=== PATIENT | male | born 1955 | race Caucasian/White ===

== ENCOUNTER 2017-07-17 18:26 | Emergency (ER) | payer MEDICARE, OTHER ==
[~2017-07-17] VITALS: Ht 182.9 cm; Wt 159.0 kg
[~2017-07-17 18:26] MED LIST: ACET500C5 PO; CIPR500T4 PO; DIGO125T PO; HYDR-762 PO; IBUP-1542 PO; LORA1TAB PO; LYRI100 PO; METO25TA4 PO; ONDA4TAB35 PO; PRAV10TA43 PO; TAMS-14 PO; TEMA30CA PO; TRAM50TA2 PO; UDROBDM PO
[2017-07-17 20:19] VITALS: Ht 182.9 cm; Wt 159.0 kg
[2017-07-17 22:15] VITALS: TEMP 98.9
[2017-07-17] MEDS ORDERED: HYDROmorphONE 1 MG/ML SYG IV STA (22:44)
[2017-07-17] MEDS ORDERED: ONDANSETRON 4 MG INJ IV STA (22:44)
[2017-07-17] MEDS ORDERED: SOD CHLORIDE 0.9% 1,000 ML IV STA (22:44)
--- NOTE | 2017-07-18 00:02 | ERD ---
ER Documentation Chief Complaint Date/Time DATE: 07/18/17 TIME: 00:00 Chief Complaint BIBA x LUQ ab pain today, hx kidney stones HPI This is 62-year-old male who says he was here Saturday and diagnosed with a right 7 x 6 mm kidney stone in the right ureter. He says that he is supposed to see the urologist on the but they were unable to see him. He states that his got his appointment moved back later. He says he is having some pain consistent with a sharp right flank pain with radiation to the right lower quadrant with some nausea vomiting yesterday. He is not having any fever no hematuria. Says the pain is just like his kidney stone pain has had in the past. Currently the pain is moderate. ROS All systems reviewed and are negative except as per history of present illness. Medications Home Meds Active Scripts Tramadol HCl (Tramadol HCl) 50 Mg Tablet, 50 MG PO Q6 Y for PAIN, #20 TAB Prov:STEPHANIE BACK 07/13/17 Ciprofloxacin Hcl* (Ciprofloxacin Hcl*) 500 Mg Tablet, 500 MG PO BID for 7 Days , TAB Prov:STEPHANIE BACK 07/13/17 Lorazepam* (Lorazepam*) 1 Mg Tablet, 1 MG PO DAILY for 5 Days, #5 TAB 0 Refills Prov:ELLIS SALAS PA-C 04/29/16 Guaifenesin-Dextromethorphan* (Robitussin* DM) 100MG/10MG/5ML Syrup, 5 ML PO Q6H Y for COUGH for 6 Days, #120 ML Prov:ELLIS SALAS PA-C 04/29/16 Acetaminophen* (Tylophen*) 500 Mg Capsule, 1 CAP PO Q6H Y for PAIN AND OR ELEVATED TEMP for 7 Days, #30 CAP 0 Refills Prov:ELLIS SALAS PA-C 04/29/16 Ibuprofen* (Motrin*) 600 Mg Tab, 600 MG PO Q8 for 10 Days, #30 TAB 0 Refills Prov:ELLIS SALAS PA-C 04/29/16 Ciprofloxacin Hcl* (Ciprofloxacin Hcl*) 500 Mg Tablet, 500 MG PO BID for 7 Days , TAB Prov:KATHERIN WINSLOW MD 08/23/15 Ondansetron Hcl* (Zofran* ODT) 4 mg -ODT Tab.disper, 4 MG PO Q6 Y for NAUSEA AND /OR VOMITING, #30 TAB Prov:KATHERIN WINSLOW MD 08/23/15 Hydrocodone Bit-Acetaminophen* ([place]olla*) 10-325 Mg Tablet, 1 TAB PO Q6 Y for PAIN , #14 TAB Prov:KATHERIN WINSLOW MD 08/23/15 Reported Medications Pregabalin* (Lyrica*) 100 Mg Capsule, 100 MG PO DAILY, CAP 08/23/15 Tamsulosin Hcl* (Flomax*) 0.4 Mg Cap.er.24h, 0.4 MG PO HS, CAP 08/23/15 Temazepam* (Temazepam*) 30 Mg Capsule, 30 MG PO HS Y for INSOMNIA, CAP 08/23/15 Pravastatin Sodium* (Pravastatin Sodium*) 10 Mg Tablet, 10 MG PO HS, TAB 08/23/15 Metoprolol Tartrate* (Lopressor*) 25 Mg Tablet, 25 MG PO BID, TAB 08/23/15 Digoxin* (Digoxin*) 0.125 Mg Tab, 0.125 MG PO DAILY, TAB 06/03/15 Allergies Allergies: Coded Allergies: No Known Drug Allergies (Verified Allergy, Unknown, 04/29/16) PMhx/Soc History of Surgery: Yes (right lower leg, left ankle, colostomy) Anesthesia Reaction: No Hx Neurological Disorder: No Hx Respiratory Disorders: No Hx Cardiac Disorders: Yes (afib, htn) Hx Psychiatric Problems: No Hx Miscellaneous Medical Probl: No Hx Alcohol Use: No Hx Substance Use: No Hx Tobacco Use: No Smoking Status: Never smoker FmHx Family History: No coronary disease Physical Exam Vitals Vital Signs Date Time Temp Pulse Resp B/P Pulse Ox O2 Delivery O2 Flow Rate FiO2 07/18/17 01:48 84 16 156/66 91 Room Air 07/17/17 22:15 98.9 79 20 148/89 93 Room Air 07/17/17 20:19 99.3 75 20 141/82 92 Physical Exam Const: Well-developed, well-nourished Head: Atraumatic, normocephalic Eyes: Normal Conjunctiva, PERRLA, EOMI, normal sclera, no nystagmus ENT: Normal External Ears, Nose and Mouth, moist mucus membranes. Neck: Full range of motion. No meningismus, no lymphadenopathy. Resp: Clear to auscultation bilaterally, no wheezing, rhonchi, rales Cardio: Regular rate and rhythm, no murmurs, S1 S2 present Abd: Soft, non tender x 4, non distended. Normal bowel sounds, no guarding or rebound, no pulsitile abdominal masses or bruits Skin: No petechiae or rashes, no ecchymosis , no maculopapular rash Back: Right flank tenderness Ext: No cyanosis, or edema, FROM x 4, normal inspection, neurovascularly intact x 4 Neur: Awake and alert, STR 5/5 x 4, sensation intact x 4, no focal findings, cerebellum intact Psych: Normal Mood and Affect Result Diagram: 07/17/17221307/17/172213 Results 24 hrs Laboratory Tests Test 07/17/17 22:14 07/17/17 23:29 White Blood Count 11.910^3/ul Red Blood Count 4.7810^6/ul Hemoglobin 14.7g/dl Hematocrit 44.6% Mean Corpuscular Volume 93.3fl Mean Corpuscular Hemoglobin 30.8pg Mean Corpuscular Hemoglobin Concent 33.0g/dl Red Cell Distribution Width 14.6% Platelet Count 93543^3/UL Mean Platelet Volume 11.0fl Neutrophils % 76.7% Lymphocytes % 10.7% Monocytes % 11.0% Eosinophils % 0.8% Basophils % 0.5% Nucleated Red Blood Cells % 0.0/100WBC Neutrophils # (Manual) 9.110^3/ul Lymphocytes # 1.310^3/ul Monocytes # 1.310^3/ul Eosinophils # 0.110^3/ul Basophils # 0.110^3/ul Nucleated Red Blood Cells # 0.010^3/ul Sodium Level 142mmol/L Potassium Level 4.9mmol/L Chloride Level 103mmol/L Carbon Dioxide Level 27mmol/L Anion Gap 17 Blood Urea Nitrogen 19mg/dl Creatinine 1.80mg/dl Glucose Level 112mg/dl Calcium Level 9.8mg/dl Urine Color YELLOW Urine Clarity CLEAR Urine pH 5.0 Urine Specific [place] 1.024 Urine Ketones NEGATIVEmg/dL Urine Nitrite NEGATIVEmg/dL Urine Bilirubin NEGATIVEmg/dL Urine Urobilinogen NEGATIVEmg/dL Urine Leukocyte Esterase TRACELeu/ul Urine Microscopic RBC 1/HPF Urine Microscopic WBC 7/HPF Urine Hemoglobin NEGATIVEmg/dL Urine Glucose NEGATIVEmg/dL Urine Total Protein 1+mg/dl Current Medications Medications (Trade) Dose Ordered Sig/Stevo Route PRN Reason Start Time Stop Time Status Last Admin Dose Admin Sodium Chloride (NS) 1,000 ml @ 1,000 mls/hr Q1H STAT IV 07/17/17 22:44 07/17/17 23:43 DC 07/17/17 22:50 Hydromorphone HCl (Dilaudid) 1 mg ONCE STAT IV 07/17/17 22:44 07/17/17 22:45 DC 07/17/17 22:50 Ondansetron HCl (Zofran Inj) 4 mg ONCE STAT IV 07/17/17 22:44 07/17/17 22:45 DC 07/17/17 22:50 Hydromorphone HCl (Dilaudid) 1 mg ONCE STAT IV 07/18/17 00:46 07/18/17 00:47 DC 07/18/17 01:05 Ondansetron HCl (Zofran Inj) 4 mg ONCE STAT IV 07/18/17 00:46 07/18/17 00:47 DC 07/18/17 01:05 Procedures/MDM PROCEDURE: CT abdomen and pelvis without intravenous contrast. CLINICAL INDICATION: Pain. TECHNIQUE: CT of the abdomen/pelvis was performed utilizing axial images with reconstructions in sagittal and coronal planes. The administered radiation dose is CTDI 24 mGy, DLP 3341 mGy-cm. COMPARISON: No pertinent prior examinations were submitted for comparison. FINDINGS: Visualized Chest: There is mild atelectasis at the lung bases. There is moderate cardiomegaly. Some coronary artery calcifications are noted. Abdomen: The spleen, pancreas, gallbladder,and adrenal glands are unremarkable. The liver is diffusely decreased in attenuation, compatible with hepatic steatosis. There is mild right hydronephrosis and hydroureter secondary to a 6 mm calculus in the right distal ureter, several centimeters from the ureterovesical junction. The left kidney is without hydronephrosis. No other definite urinary calculi are seen. Prior partial colonic resection is noted with a left lower quadrant colostomy. Multiple bowel anastomoses are seen. There is no evidence of bowel obstruction. The appendix is normal. No intra-abdominal free air is seen. There is no evidence of intra-abdominal adenopathy or free fluid. Pelvis: There is no evidence of pelvic adenopathy or free fluid. The prostate and bladder are unremarkable. Small, left greater than right fat containing inguinal hernias are noted. Osseous structures: Unremarkable. IMPRESSION: Mild right-sided obstructive uropathy secondary to a 6 mm calculus in the right distal ureter. Hepatic steatosis. Bilateral fat containing inguinal hernias. Status post bowel surgeries without evidence of bowel obstruction. RPTAT: HIKT .Pankaj Quiles MD, MD Date Time Electronically viewed and signed by .Pankaj Quiles MD, on 07/18/2017 01:12 .T/ CC: BRENDA NUNEZ DO Patient's got some mild hydronephrosis with a 6 mm stone consistent with his CT scan 3 days ago. He will need to follow-up with his urologist to have it removed. Will cover him with some Cipro and pain medication. The patient does seem overly ambitious about getting Dilaudid throughout thCreatinine is 1.8 from 1.0.984 days ago. Spoke with the urologist on-call Dr. white she said she will see him in the office if she can. Does not need to be admitted for this reason. Told him to not take NSAIDs and drink more water Departure Diagnosis: Primary Impression: Ureterolithiasis Condition: Stable BRENDA NUNEZ DO Jul 18, 2017 00:02
[2017-07-18 00:20] LABS: ADD UMIC YES; UR ASCORBIC ACID NEGATIVE (NEGATIVE); UR BILIRUBIN (Dip) NEGATIVE (NEGATIVE); UR BLOOD (Dip) NEGATIVE (NEGATIVE); UR CLARITY CLEAR (CLEAR); UR COLOR YELLOW (YELLOW); UR GLUCOSE (Dip) NEGATIVE (NEGATIVE); UR KETONES (Dip) NEGATIVE (NEGATIVE); UR LEUKOCYTE ESTERASE (Dip) TRACE Leu/ul (NEGATIVE); UR NITRITE (Dip) NEGATIVE (NEGATIVE); UR RBC 1 /HPF (0-5); UR SPECIFIC GRAVITY (Dip) 1.024 (1.003-1.030); UR TOTAL PROTEIN (Dip) 1+ mg/dl (NEGATIVE); UR UROBILINOGEN (Dip) NEGATIVE (NEGATIVE)
[2017-07-18 00:23] LABS: BASOPHIL # 0.1 10^3/ul (0.0-0.1); BASOPHILS % 0.5 % (0.0-2.0); EOSINOPHILS # 0.1 10^3/ul (0.0-0.5); EOSINOPHILS % 0.8 % (0.0-7.0); HEMATOCRIT 44.6 % (42.0-52.0); HEMOGLOBIN 14.7 g/dl (14.0-18.0); LYMPHOCYTES # 1.3 10^3/ul (0.8-2.9); LYMPHOCYTES % 10.7 % (15.0-51.0); MEAN CORPUSCULAR HEMOGLOBIN 30.8 pg (29.0-33.0); MEAN CORPUSCULAR VOLUME 93.3 fl (82.0-101.0); MONOCYTE # 1.3 10^3/ul (0.3-0.9); NEUTROPHILS % 76.7 % (39.0-77.0); PLATELET COUNT 288 10^3/UL (140-415); RED BLOOD COUNT 4.78 10^6/ul (4.70-6.10); RED CELL DISTRIBUTION WIDTH 14.6 % (11.5-14.5); WHITE BLOOD COUNT 11.9 10^3/ul (4.8-10.8)
[2017-07-18 00:28] LABS: CALCIUM 9.8 mg/dl (8.4-10.2); CREATININE 1.8 mg/dl (0.61-1.24); POTASSIUM 4.9 mmol/L (3.5-5.1)
[2017-07-18] MEDS ORDERED: ONDANSETRON 4 MG INJ IV STA (00:46)
[2017-07-18] MEDS ORDERED: HYDROmorphONE 1 MG/ML SYG IV STA (00:46)
--- NOTE | 2017-07-18 01:12 | RADRPT ---
PROCEDURE: CT abdomen and pelvis without intravenous contrast. CLINICAL INDICATION: Pain. TECHNIQUE: CT of the abdomen/pelvis was performed utilizing axial images with reconstructions in s agittal and coronal planes. The administered radiation dose is CTDI 24 mGy, DLP 3341 mGy-cm. COMPARISON: No pertinent prior examinations were submitted for comparison. FINDINGS: Visualized Chest: There is mild atelectasis at the lung bases. There is moderate cardiomegaly. Regulo e coronary artery calcifications are noted. Abdomen: The spleen, pancreas, gallbladder,and adrenal glands are unremarkable. The liver is diffusely dec reased in attenuation, compatible with hepatic steatosis. There is mild right hydronephrosis and hydroureter secondary to a 6 mm calculus in the right distal ureter, several centimeters from the ureterovesical junction. The left kidney is without hydronephr osis. No other definite urinary calculi are seen. Prior partial colonic resection is noted with a left lower quadrant colostomy. Multiple bowel anast omoses are seen. There is no evidence of bowel obstruction. The appendix is normal. No intra-abdom inal free air is seen. There is no evidence of intra-abdominal adenopathy or free fluid. Pelvis: There is no evidence of pelvic adenopathy or free fluid. The prostate and bladder are unremarkable. Small, left greater than right fat containing inguinal hernias are noted. Osseous structures: Unremarkable. IMPRESSION: Mild right-sided obstructive uropathy secondary to a 6 mm calculus in the right distal ureter. Hepatic steatosis. Bilateral fat containing inguinal hernias. Status post bowel surgeries without evidence of bowel obstruction. RPTAT: HIKT .Pankaj Quiles MD, MD Date Time Electronically viewed and signed by .Pankaj Quiles MD, on 07/18/2017 01:12 .T/
[2017-07-18 01:48] VITALS: BP 156/66
[2017-07-18] MEDS ORDERED: TAMS-14 PO (02:34)
[2017-07-18] MEDS ORDERED: HYDR-902 PO (02:34)
[2017-07-18] MEDS ORDERED: CIPR500T4 PO (02:34)
[2017-07-18] MEDS ORDERED: IBUP400T22 PO (03:16)
[2017-07-18] MEDS ORDERED: LYRI25 PO (03:16)
[2017-07-18 03:23] VITALS: PULSE 84; RESP 16
== END 2017-07-18 03:24 | disposition home or self-care (01) ==
LOC: E/R 18:26
DX: N20.1 Calculus of ureter (principal); R11.2 Nausea with vomiting, unspecified; I10 Essential (primary) hypertension
CPT/HCPCS: 36415; 74176; 80048; 81001; 85025; 96374; 96375; 96376; 99285; J1170; J2405; J7030

== ENCOUNTER 2018-04-04 11:06 | Emergency (ER) | END 2018-04-04 13:04 | disposition home or self-care (01) ==

== ENCOUNTER 2018-10-08 02:53 | Inpatient (IN) | END 2018-10-12 14:30 | disposition home or self-care (01) | DRG 389 ==

== ENCOUNTER 2019-06-08 03:21 | Inpatient (IN) | payer MEDICARE, OTHER ==
[~2019-06-08] VITALS: Ht 175.3 cm; Wt 147.0 kg
[~2019-06-08 03:21] MED LIST changes: -ACET500C5 PO; +APIX5TAB PO; -CIPR500T4 PO; -DIGO125T PO; +FLUT9.9S NASAL; +FURO20TA3 ORAL; -HYDR-762 PO; +HYDR-842 ORAL; +IBUP-1541 PO; -IBUP-1542 PO; +LISI-313 ORAL; +LISI10TA2 PO; -LORA1TAB PO; -LYRI100 PO; +LYRI25 PO; +METO-429 PO; -METO25TA4 PO; +NAPR-985 PO; -ONDA4TAB35 PO; +ONDA4TAB8 PO; +PRAV20TA2 ORAL; -TEMA30CA PO; +TRAM50TA2 ORAL; -TRAM50TA2 PO; +TRAZ-111 PO; -UDROBDM PO; +ZOLP5TAB7 ORAL
[2019-06-08] MEDS ORDERED: SOD CHLORIDE 0.9% 1,000 ML IV STA (03:39)
[2019-06-08] MEDS ORDERED: KETOROLAC 30 MG INJ IV STA (03:39)
[2019-06-08] MEDS ORDERED: ONDANSETRON 4 MG INJ IV STA ×2 (03:39→07:17)
--- NOTE | 2019-06-08 04:29 | ERD ---
ER Documentation Chief Complaint Chief Complaint BIBA, Med 39, ABD Pain x 3 days, N/V HPI 64-year-old man brought in by EMS from home for complaints of abdominal pain and vomiting x3 days. Patient does have a history of small bowel obstruction and partial colectomy with ileosigmoid anastomosis and colostomy bag. He has had nonbilious nonbloody vomiting, no fevers or chills, no blood in the colostomy bag, no complaints of chest pain or shortness of breath. ROS All systems reviewed and are negative except as per history of present illness. Medications Home Meds Active Scripts Ondansetron Hcl* (Zofran*) 4 Mg Tablet, 4 MG PO Q8H PRN for NAUSEA AND/OR VOMITING, #30 TAB Prov:VIRGIL MAC MD 06/08/19 Naproxen* (Naprosyn*) 500 Mg Tablet, 500 MG PO BID PRN for PAIN AND/OR INFLAMMATION, #30 TAB Prov:VIRGIL MAC MD 06/08/19 Fluticasone Propionate (Flonase Allergy Relief) 9.9 Ml Hilliards.susp, 1 SPRAY NASAL BID for 28 Days, #1 BOTTLE TO EACH NOSTRIL Prov:UMA NICOLAS PA-C 04/04/18 Tamsulosin Hcl* (Flomax*) 0.4 Mg Cap.er.24h, 0.4 MG PO QPM, #30 CAP Prov:BRENDA NUNEZ DO 07/18/17 Reported Medications Lisinopril* (Lisinopril*) 5 Mg Tablet, 1 TAB ORAL DAILY 06/08/19 Hydroxyzine Hcl* (Atarax*) 25 Mg Tab, 1 TAB ORAL TID PRN for ALLERGIC REACTION 06/08/19 Pravastatin Sodium (Pravastatin Sodium) 20 Mg Tablet, 1 TAB ORAL QHS 06/08/19 Furosemide* (Furosemide*) 20 Mg Tablet, 1 TAB ORAL DAILY 06/08/19 Tramadol HCl (Tramadol HCl) 50 Mg Tablet, 1 TAB ORAL TID PRN for PAIN LEVEL 6-10 06/08/19 Zolpidem Tartrate* (Zolpidem Tartrate*) 5 Mg Tablet, 1 TAB ORAL QHS PRN for INSOMNIA 06/08/19 Trazodone Hcl* (Trazodone Hcl*) 50 Mg Tablet, 50 MG PO QHS, #90 TAB 10/08/18 Metoprolol Tartrate* (Lopressor*) 50 Mg Tab, 50 MG PO BID, #60 TAB 10/08/18 Ibuprofen* (Ibuprofen*) 400 Mg Tablet, 400 MG PO Q6H PRN for PAIN, TAB 07/18/17 Pregabalin* (Lyrica*) 25 Mg Capsule, 25 MG PO DAILY, CAP 07/18/17 Discontinued Reported Medications Lisinopril* (Lisinopril*) 10 Mg Tablet, 10 MG PO DAILY, #30 TAB 10/08/18 Pravastatin Sodium* (Pravastatin Sodium*) 10 Mg Tablet, 10 MG PO HS, TAB 08/23/15 Allergies Allergies: Coded Allergies: No Known Drug Allergies (Verified Allergy, Unknown, 04/29/16) PMhx/Soc Morbid obesity, history of small bowel obstruction, hypertension, hyperlipidemia, atrial fibrillation, abdominal hernia, ileosigmoid anastomosis, subtotal colectomy and colostomy bag, BPH, dyslipidemia History of Surgery: Yes (left ankle surgery, colostomy, right leg surgery) Anesthesia Reaction: No Hx Neurological Disorder: Yes (neuropathy, migraines) Hx Respiratory Disorders: Yes (SOB) Hx Cardiac Disorders: Yes (a-fib, HTN) Hx Psychiatric Problems: Yes (anxiety, depression) Hx Alcohol Use: No Hx Substance Use: No Hx Tobacco Use: Yes (quit 25 yrs ago) Smoking Status: Former smoker FmHx Family History: No diabetes Physical Exam Vitals Vital Signs Date Temp Pulse Resp B/P (MAP) Pulse Ox O2 O2 Flow FiO2 Time Delivery Rate 06/08/19 97.4 67 16 109/70 Room Air 05:27 (83) 06/08/19 98.4 67 18 105/56 97 Room Air 04:48 (72) 06/08/19 98.5 78 14 100/65 94 03:34 (77) Physical Exam GENERAL: Well-developed, well-nourished, well-hydrated, in no apparent distress, looks nontoxic in appearance CARDIAC: Regular rate and rhythm, no murmurs rubs or gallops LUNGS: Clear bilaterally no wheezing crackles or stridor ABDOMEN: Soft, protuberant, no guarding or rigidity SKIN: Warm and dry to touch, no abrasions, contusions, or hematomas, no lacerations, no ecchymosis, no target lesions, and without ulcers EXTREMITIES: No clubbing cyanosis or edema, calves are bilaterally symmetrical, no Homans sign, no popliteal cord sign. Distal pulses equal and bilateral PSYCH: Normal affect without agitation or irritability Result Diagram: 06/08/19 0415 06/08/19 1757 Results 24 hrs Laboratory Tests Test 06/08/19 04:15 White Blood Count 12.4 10^3/ul Red Blood Count 5.13 10^6/ul Hemoglobin 15.7 g/dl Hematocrit 46.5 % Mean Corpuscular Volume 90.6 fl Mean Corpuscular Hemoglobin 30.6 pg Mean Corpuscular Hemoglobin Concent 33.8 g/dl Red Cell Distribution Width 13.2 % Platelet Count 333 10^3/UL Mean Platelet Volume 11.1 fl Immature Granulocytes % 0.300 % Neutrophils % 85.5 % Lymphocytes % 7.4 % Monocytes % 6.3 % Eosinophils % 0.2 % Basophils % 0.3 % Nucleated Red Blood Cells % 0.0 /100WBC Immature Granulocytes # 0.040 10^3/ul Neutrophils # 10.6 10^3/ul Lymphocytes # 0.9 10^3/ul Monocytes # 0.8 10^3/ul Eosinophils # 0.0 10^3/ul Basophils # 0.0 10^3/ul Nucleated Red Blood Cells # 0.0 10^3/ul Prothrombin Time 14.7 Sec Prothrombin Time Ratio 1.1 INR International Normalized Ratio 1.14 Activated Partial Thromboplast Time 33.6 Sec Sodium Level 137 mmol/L Potassium Level 5.2 mmol/L Chloride Level 98 mmol/L Carbon Dioxide Level 18 mmol/L Anion Gap 21 Blood Urea Nitrogen 102 mg/dl Creatinine 9.80 mg/dl Est Glomerular Filtrat Rate mL/min 5 mL/min Glucose Level 180 mg/dl Calcium Level 10.2 mg/dl Total Bilirubin 0.6 mg/dl Direct Bilirubin 0.00 mg/dl Indirect Bilirubin 0.6 mg/dl Aspartate Amino Transf (AST/SGOT) 22 IU/L Alanine Aminotransferase (ALT/SGPT) 31 IU/L Alkaline Phosphatase 102 IU/L Total Protein 9.7 g/dl Albumin 4.8 g/dl Globulin 4.90 g/dl Albumin/Globulin Ratio 0.97 Lipase 204 U/L Current Medications Medications Dose Sig/Stevo Start Time Status Last (Trade) Ordered Route PRN Stop Time Admin Dose Reason Admin Sodium 1,000 ml @ Q1H STAT 06/08/19 DC 06/08/19 Chloride 1,000 mls/hr IV 03:39 03:51 06/08/19 04:38 Ondansetron 4 mg ONCE STAT 06/08/19 DC 06/08/19 HCl (Zofran IV 03:39 03:51 Inj) 06/08/19 03:40 Ketorolac 30 mg ONCE STAT 06/08/19 DC 06/08/19 Tromethamine IV 03:39 03:51 (Toradol) 06/08/19 03:40 Oxycodone/ 1 tab ONCE ONCE 06/08/19 DC 06/08/19 Acetaminophen PO 05:00 04:57 (Percocet 06/08/19 05:01 (5/ 325)) Procedures/MDM IV line was established patient was placed on quality assurance monitor final rhythm strip revealed a sinus rhythm at about 80 bpm with upright P and T waves. Patient was afebrile I administered 1 L normal saline IV, Toradol 15 mg IV, Zofran [address] scan of the abdomen pelvis was performed, IMPRESSION: 1. Gallbladder mildly distended at 6 cm transverse diameter. Appearance raises possibility of cholecystitis, consider further evaluation with ultrasound or HIDA scan if clinically warranted. 2. Chronic postsurgical changes related to subtotal colectomy with left lower quadrant ostomy. The large peristomal hernia which contains a nondilated segment of the small bowel no evidence for acute obstruction. 3. Bilateral renal cortical atrophy. Punctate non-obstructing calcifications within both kidneys. 4. Small fat containing bilateral inguinal hernias. 5. Chronic compression deformity of the L1 vertebral body. CBC reveals a mild leukocytosis at 12, electrolytes reveal acute kidney injury with a BUN/creatinine of 102/10, liver function tests are unremarkable I ordered [place] catheter placement given the patient's acute kidney injury and admitted the patient to [facility] Departure Diagnosis: Primary Impression: Abdominal pain Abdominal location: generalized Qualified Codes: R10.84 - Generalized abdominal pain Additional Impressions: Acute kidney injury Acute hyperkalemia Acute dehydration Condition: VIRGIL Leon MD Jun 08, 2019 04:29
[2019-06-08] MEDS ORDERED: OXYCODONE/ACETAMINOPHEN (5/325) TAB PO ONE (05:00)
[2019-06-08] MEDS ORDERED: ADENOSINE 3 MG/ML SYRINGE IV ONE (07:00)
--- NOTE | 2019-06-08 07:11 | QN ---
Documentation Comment Patient was endorsed to me pending CT findings. CT shows following IMPRESSION: 1. Gallbladder mildly distended at 6 cm transverse diameter. Appearance raises possibility of cholecystitis, consider further evaluation with ultrasound or HIDA scan if clinically warranted. 2. Chronic postsurgical changes related to subtotal colectomy with left lower quadrant ostomy. The large peristomal hernia which contains a nondilated segment of the small bowel no evidence for acute obstruction. 3. Bilateral renal cortical atrophy. Punctate non-obstructing calcifications within both kidneys. 4. Small fat containing bilateral inguinal hernias. 5. Chronic compression deformity of the L1 vertebral body. RPTAT: HJBB Patient's clinical exam and history seem inconsistent with acute cholecystitis. An ultrasound of the gallbladder has been ordered. Admitting team notified and they will follow in the imaging for this patient. Given the patient's no fever, history of chronic abdominal pain and limited findings on CT acute cholecystitis seems unlikely. Emergent antibiotics and surgical consultation are not necessary. Ultrasound will be followed by admitting team and further management per their assessment. MARV CAPELLAN MD Jun 08, 2019 07:11
[2019-06-08] MEDS ORDERED: morphine 4 MG/ML VIAL IV STA (07:17)
[2019-06-08] MEDS ORDERED: morphine 4 MG/ML VIAL ONE (07:19)
[2019-06-08 07:45] VITALS: BP 98/55; PULSE 76
[2019-06-08] MEDS ORDERED: morphine 2 MG INJ IV STA ×2 (10:09→10:44)
[2019-06-08] MEDS: ONDANSETRON 4 MG INJ IV PRN ×2 (10:32→22:30)
[2019-06-08] MEDS ORDERED: SOD CHLORIDE 0.9% 1,000 ML IV SCH (11:00)
--- NOTE | 2019-06-08 11:24 | HP ---
Date/Time of Note Date/Time of Note DATE: 06/08/19 TIME: 10:44 Assessment/Plan VTE Prophylaxis Pharmacological prophylaxis: heparin Lines/Catheters IV Catheter Type (from Nrs): Saline Lock Assessment/Plan Hospital Course 64 yo M with hypertension, BPH, dyslipidemia, subtotal colectomy (reportedly due to colitis), colostomy, recurrent small bowel obstruction, chronic kidney disease who presented to the emergency room with a 3-day history of abdominal pain, nausea and vomiting, and is currently managed as follows. 1. Abdominal pain / nausea / vomiting: -Patient has evidence of acute renal failure with uremia and a mild metabolic acidosis, this could be causing his symptoms. -However there is some concern for possible acute cholecystitis which could have precipitated the symptoms which could have led to his renal insufficiency. -Abdominal pain is however located in the left lower region of his abdomen around the site of his colostomy and not to the right upper quadrant, making cholecystitis a less likely probability 2. Acute on chronic renal failure with metabolic acidosis and uremia 3. Hyperkalemia 4. Chronic atrial fibrillation now with bradycardia and concern for pauses on security monitor -Patient has been offered anticoagulation in the past and had refused at the time, at this time is unclear what he wants to do, will follow up 5. History of recurrent colitis status post partial colectomy and colostomy placement without evidence of acute obstruction on CAT scan 5. Mild gallbladder distention concerning for possible cholecystitis 6. Chronic bilateral renal atrophy with nonobstructing calcifications within both kidneys 7. Morbid obesity 8. Reactive leukocytosis 9. Hypertension 10. History of BPH 11. Dyslipidemia Plan: -We will commence hydration as aggressively as possible, keep patient n.p.o. for now, nephrology consultation. -HIDA scan to rule out cholecystitis -Repeat BMP, treat hyperkalemia if necessary, get a stat EKG. -Symptomatic care follow-up pain, nausea and vomiting -Also get a chest x-ray, 2D echo, and rule out an acute coronary syndrome -Cardiology consultation for bradycardia with pauses, avoid all AV jimmie blockers for now -Continue close monitoring on telemetry, serial labs and intervention as needed -Further intervention per clinical course -Prophylaxis: Heparin, Protonix Result Diagram: 06/08/19 0415 06/08/19 0415 Results 24hrs Laboratory Tests Test 06/08/19 04:15 White Blood Count 12.4 #H Red Blood Count 5.13 Hemoglobin 15.7 Hematocrit 46.5 Mean Corpuscular Volume 90.6 Mean Corpuscular Hemoglobin 30.6 Mean Corpuscular Hemoglobin Concent 33.8 Red Cell Distribution Width 13.2 Platelet Count 333 # Mean Platelet Volume 11.1 H Immature Granulocytes % 0.300 Neutrophils % 85.5 H Lymphocytes % 7.4 L Monocytes % 6.3 Eosinophils % 0.2 Basophils % 0.3 Nucleated Red Blood Cells % 0.0 Immature Granulocytes # 0.040 H Neutrophils # 10.6 H Lymphocytes # 0.9 Monocytes # 0.8 Eosinophils # 0.0 Basophils # 0.0 Nucleated Red Blood Cells # 0.0 Prothrombin Time 14.7 Prothrombin Time Ratio 1.1 INR International Normalized Ratio 1.14 Activated Partial Thromboplast Time 33.6 Sodium Level 137 Potassium Level 5.2 H Chloride Level 98 Carbon Dioxide Level 18 L Anion Gap 21 H Blood Urea Nitrogen 102 H Creatinine 9.80 H Est Glomerular Filtrat Rate mL/min 5 L Glucose Level 180 Calcium Level 10.2 Total Bilirubin 0.6 Direct Bilirubin 0.00 Indirect Bilirubin 0.6 Aspartate Amino Transf (AST/SGOT) 22 Alanine Aminotransferase (ALT/SGPT) 31 Alkaline Phosphatase 102 Total Protein 9.7 H Albumin 4.8 Globulin 4.90 H Albumin/Globulin Ratio 0.97 Lipase 204 HPI/ROS Admit Date/Time Admit Date/Time Jun 08, 2019 at 06:06 Hx of Present Illness 64-year-old male who presented to emergency room with abdominal pain, nausea and vomiting for the last 3 days. The patient has had a history of recurrent colitis in the past and has had a colectomy done and has a residual colostomy. He thought that this was likely the cause of his symptoms and so he hopes it will resolve spontaneously, but when it did not he decided to come to the emergency room to be evaluated. He also has a history of chronic kidney disease but does not routinely see a face man in follow-up. He denies fever, denies chest pain. He denies hematemesis. He continues to have output from his colostomy bag. His CT in the emergency room showed a mildly distended gallbladder at 6 cm transverse diameter with concern for possible cholecystitis. Patient's pain however is located more in the left lower quadrant around the area where he has his colostomy. He denies right upper quadrant abdominal pain at this time. CT also showed a large parastomal hernia containing nondilated segment of small bowel without evidence of acute obstruction. Of note is however that his creatinine levels have jumped from 1.43-9.8 [place] [address] patient symptoms could also be from renal failure with uremia. Is been admitted for further management. ROS 12 point review if systems was done and pertinent findings are as noted. PMH/Family/Social Past Medical History hypertension BPH, dyslipidemia subtotal colectomy (reportedly due to colitis), ostomy, recurrent small bowel obstruction CKD with multiple stones Paroxysmal Afib: -was not on anticoagulation. Patient was offered anticoagulation by his primary aquatics coordinator office in 2014 with a chads score of 1, but he declined and he was placed on aspirin only. He continues to decline anticoagulation at this time. His primary aquatics coordinator is Dr. Leslie Cool Phone #[phone], per their office, patient is welcome to follow-up with them again if he wants to. Chronic compression fracture: Morbid Obesity Medications Current Medications Ondansetron HCl (Zofran Inj) 4 mg Q6H PRN IV NAUSEA AND/OR VOMITING Last administered on 06/08/19at 10:32; Admin Dose 4 MG; Start 06/08/19 at 10:30 Coded Allergies: No Known Drug Allergies (Verified Allergy, Unknown, 04/29/16) Past Surgical History Past Surgical Hx: other (Partial colectomy, colostomy placement, left ankle surgery, right knee replacement) Family History Significant Family History: no pertinent family hx Social History Smoking Status: Former smoker Exam/Review of Systems Vital Signs Vitals Vital Signs Date Temp Pulse Resp B/P (MAP) Pulse Ox O2 O2 Flow FiO2 Time Delivery Rate 06/08/19 97.8 60 14 115/76 97 Room Air 07:27 (89) Exam Exam General: Morbidly obese A&O x3, answering questions appropriately, actively vomiting HEENT: NC/ AT. PERRL. EOM intact Neck: supple CVS: S1, S2, irregularly irregular with bradycardia. no murmurs. no pain on chest wall palpation Lungs: CTA b/l. no wheezing or rhonchi Abd: soft, nontender, +BS, obese, colostomy with liquidly brown drainage, small volume Ext: moving all extremities skin: no rashes ERMA,BOLATITO M. Jun 08, 2019 10:56
[2019-06-08] MEDS ORDERED: ZOLPIDEM 5 MG TAB PO PRN (11:30)
--- NOTE | 2019-06-08 12:06 | QN ---
Documentation Comment PT SEEN and examined renal consult dictated SARA LANZA MD Jun 08, 2019 12:06
[2019-06-08] MEDS ORDERED: MAGNESIUM SULFATE 1 GM/D5W 100 ML IVPB ONE (12:30)
[2019-06-08] MEDS: PIPER-TAZO 2.25 GM (PMX) 50 ML IVPB SCH ×2 (14:01→21:57)
[2019-06-08] MEDS: SODIUM BICARBONATE IN D5W 1,000 ML IV SCH (14:01)
[2019-06-08] MEDS: morphine 4 MG/ML VIAL IV PRN ×2 (16:38→22:30)
--- NOTE | 2019-06-08 18:16 | CONS ---
DATE OF ADMISSION: 06/08/2019 DATE OF CONSULTATION: 06/08/2019 REASON FOR CONSULTATION: Renal failure. HISTORY OF PRESENT ILLNESS: This is a 64-year-old male with a past medical history of hypertension, diabetes, hyperlipidemia, BPH, subtotal colectomy, status post colostomy, history of kidney stones in the past, history of CKD, last creatinine reported here was 1.43 in 09/2018, presented to the emerge ncy department complaining of 3-day history of abdominal pain, nausea, vomiting. According to the gretchen hong, the patient notes and records. The patient was last here, admitted in September 2018. At [facility] t time, the patient presented with acute renal failure with a creatinine of 7.4. The creatinine got improved to 1.43 and GFR was 50 upon discharge. According to the patient, he had been following with his PCP in [facility], last check was in December. According to the patient, he had been doing fine excep t 3 days ago he started having severe lower abdominal pain associated with episodes of nausea, vomiti ng and increased drainage through the colostomy bag. On arrival to the ED, the patient's blood pressure was 100/65, temperature was 98.5, pulse 78, respir ations 18. Labs showed white count of 12.4, hemoglobin 15.7, platelet count 333. Sodium 137, potass ium 5.2, chloride 98, bicarbonate 18, BUN of 102, creatinine 9.84. Lipase was 204. The patient had a gallbladder ultrasound that showed gallbladder distended, moderate to large amount of bile. CT of the abdomen and pelvis showed a gallbladder, mildly distended 6 cm appearance. There is possibility of cholecystitis, chronic postsurgical changes subtotal colectomy and the large periosteal hernia, co ntinues on dilated segment small bowel. No evidence of acute obstruction. Bilateral renal cortical atrophy, punctuate nonobstructive calcification, small fat-containing bilateral hernias. The patient was given Toradol, morphine, Zofran and was admitted for further management. PAST MEDICAL HISTORY: 1. Hypertension. 2. BPH. 3. Dyslipidemia. 4. Subtotal colectomy. 5. Paroxysmal AFib. ALLERGIES: NONE. PAST SURGICAL HISTORY: 1. Patient had left ankle surgery. 2. Subtotal colectomy due to colitis, ostomy and recurrent bowel obstruction. 3. Right knee replacement. MEDICATIONS TAKEN AT HOME; 1. Flomax 0.4. 2. Lisinopril 5. 3. Metoprolol 50 b.i.d. 4. Pravastatin 20. 5. Hydroxyzine. 6. Ibuprofen. 7. Lyrica. 8. Tramadol. 9. Trazodone. 10. Zolpidem. 11. Lasix 20. 12. Fluconazole 13. Zofran. SOCIAL HISTORY: Denies any history of smoking, alcohol or any drug use. Lives at home by himself, d oes not see any hosiery knitter. REVIEW OF SYSTEMS: The patient opens eyes, answers some questions. Denies any complaints of diffuse abdominal pain, episodes of vomiting, increased output through the colostomy. Denies any headache, any blurry vision, occasional shortness of breath. Denied any hematemesis, any melena, any bright re d per rectum. PHYSICAL EXAMINATION: VITAL SIGNS: Temperature 97.8, pulse 68, respirations 16, blood pressure 115/76, saturating 97%. GENERAL: Patient opens eyes, answers some questions, goes back to sleep. The patient is obese. NECK: Supple. HEART: Irregularly irregular. CHEST: Decreased breath sounds bilaterally. ABDOMEN: Soft, diffuse tender, colostomy with brown drainage. EXTREMITIES: Dry. Trace edema. Moves all extremities. Hyperpigmented lesions on the bilateral low er extremities. LABORATORY DATA: Shows a potassium of 5.2, sodium 137, bicarbonate 18, BUN of 102, creatinine of 9.8 0. Lipase 204. White count 12.4, hemoglobin 15, pH 7.262, pCO2 34, bicarbonate 7, pO2 73, bicarb 15 . INR is 1.14. IMAGING: CT of the abdomen and pelvis with a 4 mm nonobstructing calculus lower pole of the right ki dney, 3 mm with the posterior callus of the right kidney 32.2 cm cyst in the lower part of the left k idney or chronic compression fracture L1 vertebral body. Gallbladder mildly distended, 1 cm bilatera l cortical renal atrophy punctuated nonobstructing calcifications of both kidneys. ASSESSMENT AND PLAN: This is a 64-year-old male who presented with: 1. Acute kidney injury on top of chronic kidney disease with a baseline creatinine of 1.3 to 1.4. O f note, patient had acute kidney injury with a creatinine of 7, which peaked in September 2018 and it came down to 1.43 on discharge. Etiology of acute renal failure is likely secondary to prerenal volu me depletion due to episodes of nausea and vomiting. There is no urinalysis obtained. The patient a lso has a history of benign prostatic hypertrophy. Currently, the patient has not had any urine outp ut. The CT of the abdomen and pelvis shows bilateral renal cortical atrophy. Plus, the patient coul d also have underlying acute tubular necrosis with nephrotoxic agents like PASCUAL, ARBs and naproxen, ib uprofen. 2. Hyperkalemia, likely secondary to acute kidney injury. 3. Metabolic acidosis, anion gap. Etiology could be secondary to acute kidney injury. 4. Abdominal pain, nausea, vomiting, rule out gallbladder etiology. 5. 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 6. History of atrial fibrillation. 7. Hypertension, currently normotensive. 8. Morbid obesity. 9. Benign prostatic hypertrophy. 10. History of subtotal colectomy. 11. Leukocytosis. 12. Hypomagnesemia. PLAN: 1. At this period of time, the patient is admitted to [facility]. 2. Will do strict I's and O's, O[place]nor catheter. 3. We will continue the patient on continuous IV hydration. 4. Looking at the ABG result. The patient will also require bicarbonate drip. 5. The patient should be on renal diet. 6. We will check UA, urine electrolytes, protein to creatinine ratio. 7. We will hold off on PASCUAL, ARB and any NSAID. 8. We should get an echo and chest x-ray. 9. We should obtain the records from PCP's office for baseline labs since last year. 10. We will closely monitor the patient for any renal compensation. We will get serial BMPs and ABG s. If the patient's condition does not improve, the patient may require hemodialysis. We will asses s next 24 to 48 hours. Rest of the treatment will depend of the patient's hospitalization course. Dictated By: SARA MAJANO/FILI Conf#: [id number] DID#: [id number] CC: KAYLYNN GALNIDO MD;*End*
--- NOTE | 2019-06-08 18:31 | RADRPT ---
Echocardiogram Report Patient Name: KRISTAL MEDINAPatient ID: [id number] : 1955 (64y 2m)Study Date: 06/08/2019 5:08:55 PM Gender: MAccession #: [id number] Tech: Salo Medina [facility] Location: [address] Ref.Physician: ADRIANNA MYLES Height(Cm): BSA: Weight(Kg): Quality: Technically Difficult StudyOrder Physician: ADRIANNA MYLES Account #: Procedures: Echocardiographic Report: Transthoracic echocardiogram with complete 2D, M-Mode, and doppler examination. Indications: Evaluate Left Ventricular function. Measurements: 2D/M Mode Doppler Measurement Value Normal Range Measurement Value Normal Range LVIDd 2D 5.0 [ 4.2 - 5.8 ] cm AV Peak Addison 1.3 [ 100.0 - 170.0 ] cm/sec LVIDs 2D 3.4 [ 2.5 - 4.0 ] cm AV Peak PG 7.0 [ 2.0 - 9.0 ] mmHg LVPWd 2D 1.1 [ 0.6 - 1.0 ] cm LVOT Peak Addison 1.0 [ 70.0 - 110.0 ] cm/sec IVSd 2D 1.1 [ 0.6 - 1.0 ] cm LVOT Peak PG 4.0 [ 2.0 - 6.0 ] mmHg AoR Diam 2D 3.0 [ 2.6 - 3.4 ] cm MV E Peak Addison 0.9 [ 60.0 - 130.0 ] cm/sec EDV 2D 118.0 [ 62.0 - 150.0 ] ml MV A Peak Addison 0.3 [ 100.0 - 120.0 ] cm/sec ESV 2D 48.8 [ 21.0 - 61.0 ] ml MV E/A 3.0 [ 0.8 - 1.5 ] ratio EF 2D 58.6 [ 52.0 - 72.0 ] percent MV Decel Time 197 [ 104 - 258 ] msec LA Dimen 2D 4.6 [ 3.0 - 4.0 ] cm Lat E` Addison 0.1 [ 10.0 - 15.0 ] cm/sec Lateral E/E` 7.8 [ 1.0 - 2.0 ] ratio Med E` Addison 0.2 cm/sec MV E/A 3.0 [ 0.8 - 1.5 ] ratio RA Pressure 10.0 mmHg Findings: Left Ventricle: Normal left ventricular systolic function. Normal left ventricular cavity size. Left ventricular wall thickness upper limits of normal. Ejection fraction is visually estimated at 60 %. Tissue Doppler/Mitral Doppler indices are indeterminate in this study due to the presence of atrial fibrillation. Right Ventricle: Normal right ventricular size. Normal right ventricular systolic function. Left Atrium: There is mild enlargement of left atrium. Right Atrium: The right atrium is normal in size. Mitral Valve: Mitral valve is not well visualized. Mild mitral leaflet calcification. Mild mitral annular calcification. Trace mitral regurgitation. Aortic Valve: No significant aortic stenosis or insufficiency. Aortic valve not well visualized. Aortic cusps appear mildly calcified. Tricuspid Valve: Normal appearance of the tricuspid valve. Unable to obtain RVSP due to minimal presence of tricuspid regurgitation. Pericardium: Trivial pericardial effusion. Aorta: Normal aortic root. IVC: Normal size and normal respiratory collapse consistent with normal right atrial pressure. Conclusions: Normal left ventricular systolic function. Normal left ventricular cavity size. Left ventricular wall thickness upper limits of normal. Ejection fraction is visually estimated at 60 %. Tissue Doppler/Mitral Doppler indices are indeterminate in this study due to the presence of atrial fibrillation. There is mild enlargement of left atrium. Mitral valve is not well visualized. Mild mitral leaflet calcification. Mild mitral annular calcification. Trace mitral regurgitation. No significant aortic stenosis or insufficiency. Aortic valve not well visualized. Aortic cusps appear mildly calcified. Normal appearance of the tricuspid valve. Unable to obtain RVSP due to minimal presence of tricuspid regurgitation. Normal size and normal respiratory collapse consistent with normal right atrial pressure. Trivial pericardial effusion. Electronically Signed By: Adrianna Myles 2019-06-08 18:30:45 PDT
--- NOTE | 2019-06-08 18:39 | CONS ---
Assessment/Plan Assessment/Plan Hospital Course (Demo Recall) Atrial for ablation with a slow ventricular response: At least partially secondary to beta-bernadette Acute renal failure Dehydration History of hypertension morbid obesity Status post colostomy Obstructive sleep apnea ? Cholecystitis Recommendations: We will hold beta-bernadette for now and adjusted as needed Check the thyroid function test We will check echocardiogram Telemetry monitoring for now GI work-up and treatment as per internal medicine IV fluid. Management as per renal consultants. Thank you for his referral. We will continue to follow along with you ADRIANNA GARCIA MD [facility] Consultation Date/Type/Reason Admit Date/Time Jun 08, 2019 at 06:06 Date of Consultation: Jun 08, 2019 Type of Consult Cardiology Reason for Consultation afib with slow Vent response Requesting Provider: ALFA RITCHIE Date/Time of Note DATE: 06/08/19 TIME: 18:16 Hx of Present Illness Interventional cardiology consultation note Chief complaint: Weakness, abdominal pain nausea vomiting Reason for consult: Atrial fibrillation with slow ventricular response History of present illness: Thank you for this referral. History was informed the patient who is a fair historian at best review of the chart review of the ulcer discussion physician staff This is a 64-year-old male who presented to emergency room with abdominal pain, nausea and vomiting for the last 3 days. The patient has had a history of recurrent colitis in the past and has had a colectomy done and has a residual colostomy. Patient was noted to be in acute renal failure. He has not been able to tolerate p.o. diet over the past few days well and has not been drinking much. Patient also noted to be atrial fibrillation with a slow ventricular response heart rate has gone as low as 30s and 40s. With less than 3-second pauses but no syncope or presyncope noted. Patient also on metoprolol 50 mg p.o. twice daily He denies fever, denies chest pain. He denies hematemesis. He continues to have output from his colostomy bag. his creatinine levels have jumped from 1.43 to 9.8 Past Medical History hypertension BPH, dyslipidemia subtotal colectomy (reportedly due to colitis), ostomy, recurrent small bowel obstruction CKD with multiple stones Afib: Is not on anticoagulation. 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 Chronic compression fracture: Morbid Obesity and obstructive sleep apnea. He has refused CPAP at night Allergies: No known drug allergies Medications were reviewed as per medical reconciliation sheet which include me toprolol 50 mg twice daily as well Family history: No reported history of early coronary artery disease Social history: She is an ex-smoker Review of system: Patient denies all others except for above-mentioned Past Medical History Home Meds Active Scripts Ondansetron Hcl* (Zofran*) 4 Mg Tablet, 4 MG PO Q8H PRN for NAUSEA AND/OR VOMITING, #30 TAB Prov:VIRGIL MAC MD 06/08/19 Naproxen* (Naprosyn*) 500 Mg Tablet, 500 MG PO BID PRN for PAIN AND/OR INFLAMMATION, #30 TAB Prov:VIRGIL MAC MD 06/08/19 Fluticasone Propionate (Flonase Allergy Relief) 9.9 Ml [place].susp, 1 SPRAY NASAL BID for 28 Days, #1 BOTTLE TO EACH NOSTRIL Prov:UMA NICOLAS PA-C 04/04/18 Tamsulosin Hcl* (Flomax*) 0.4 Mg Cap.er.24h, 0.4 MG PO QPM, #30 CAP Prov:BRENDA NUNEZ DO 07/18/17 Reported Medications Lisinopril* (Lisinopril*) 5 Mg Tablet, 1 TAB ORAL DAILY 06/08/19 Hydroxyzine Hcl* (Atarax*) 25 Mg Tab, 1 TAB ORAL TID PRN for ALLERGIC REACTION 06/08/19 Pravastatin Sodium (Pravastatin Sodium) 20 Mg Tablet, 1 TAB ORAL QHS 06/08/19 Furosemide* (Furosemide*) 20 Mg Tablet, 1 TAB ORAL DAILY 06/08/19 Tramadol HCl (Tramadol HCl) 50 Mg Tablet, 1 TAB ORAL TID PRN for PAIN LEVEL 6-10 06/08/19 Zolpidem Tartrate* (Zolpidem Tartrate*) 5 Mg Tablet, 1 TAB ORAL QHS PRN for I NSOMNIA 06/08/19 Trazodone Hcl* (Trazodone Hcl*) 50 Mg Tablet, 50 MG PO QHS, #90 TAB 10/08/18 Metoprolol Tartrate* (Lopressor*) 50 Mg Tab, 50 MG PO BID, #60 TAB 10/08/18 Ibuprofen* (Ibuprofen*) 400 Mg Tablet, 400 MG PO Q6H PRN for PAIN, TAB 07/18/17 Pregabalin* (Lyrica*) 25 Mg Capsule, 25 MG PO DAILY, CAP 07/18/17 Discontinued Reported Medications Lisinopril* (Lisinopril*) 10 Mg Tablet, 10 MG PO DAILY, #30 TAB 10/08/18 Pravastatin Sodium* (Pravastatin Sodium*) 10 Mg Tablet, 10 MG PO HS, TAB 08/23/15 Medications Current Medications Ondansetron HCl (Zofran Inj) 4 mg Q6H PRN IV NAUSEA AND/OR VOMITING Last administered on 06/08/19at 10:32; Admin Dose 4 MG; Start 06/08/19 at 10:30 Morphine Sulfate (morphine) 4 mg Q4H PRN IV SEVERE PAIN LEVEL 7-10 Last administered on 06/08/19at 16:38; Admin Dose 4 MG; Start 06/08/19 at 11:00 Tamsulosin HCl (Flomax) 0.4 mg QPM PO ; Start 06/08/19 at 21:00 Sodium Bicarbonate/ Dextrose 1,000 ml @ 100 mls/hr Q10H IV Last administered on 06/08/19at 14:01; Admin Dose 100 MLS/HR; Start 06/08/19 at 13:30 Piperacillin Sod/ Tazobactam Sod 50 ml @ 100 mls/hr Q8 IVPB Last administered on 06/08/19at 14:01; Admin Dose 100 MLS/HR; Start 06/08/19 at 14:00 Allergies: Coded Allergies: No Known Drug Allergies (Verified Allergy, Unknown, 04/29/16) Past Surgical History Past Surgical Hx: other (Partial colectomy, colostomy placement, left ankle surgery, right knee replacement) Social History Smoking Status: Former smoker Exam/Review of Systems Vital Signs Vitals Vital Signs Date Temp Pulse Resp B/P (MAP) Pulse Ox O2 O2 Flow FiO2 Time Delivery Rate 06/08/19 97.6 76 98/55 (69) 96 Room Air 07:45 06/08/19 14 07:27 Exam Exam General: Obese the obese gentleman in no acute distress HEENT: NC/AT. pupils are equal. round. Mucous membrane appears to be dry NECK: no stridor. CV: Irregularly irregular systolic murmur; no gallop or rubs. PULM: no wheezing or rhonchi. GI: SOFT, NT, ND, no rebound or guarding Extremity: trace B/L LE edema. no clubbing. neuro: awake and alert, OX3. Psych: calm t rectal: deferred EKG was personally with atrial fibrillation with slow ventricular response nonspecific T wave abnormalities Abdominal CT has shown: 1. Gallbladder mildly distended at 6 cm transverse diameter. Appearance raises possibility of cholecystitis, consider further evaluation with ultrasound or HIDA scan if clinically warranted. 2. Chronic postsurgical changes related to subtotal colectomy with left lower quadrant ostomy. The large peristomal hernia which contains a nondilated segment of the small bowel no evidence for acute obstruction. 3. Bilateral renal cortical atrophy. Punctate non-obstructing calcifications within both kidneys. 4. Small fat containing bilateral inguinal hernias. 5. Chronic compression deformity of the L1 vertebral body. Labs Result Diagram: 06/08/19 0415 06/08/19 1108 Results 24hrs Laboratory Tests Test 06/08/19 04:15 06/08/19 10:49 06/08/19 11:08 White Blood Count 12.4 #H Red Blood Count 5.13 Hemoglobin 15.7 Hematocrit 46.5 Mean Corpuscular Volume 90.6 Mean Corpuscular Hemoglobin 30.6 Mean Corpuscular 33.8 Hemoglobin Concent Red Cell Distribution Width 13.2 Platelet Count 333 # Mean Platelet Volume 11.1 H Immature Granulocytes % 0.300 Neutrophils % 85.5 H Lymphocytes % 7.4 L Monocytes % 6.3 Eosinophils % 0.2 Basophils % 0.3 Nucleated Red Blood Cells % 0.0 Immature Granulocytes # 0.040 H Neutrophils # 10.6 H Lymphocytes # 0.9 Monocytes # 0.8 Eosinophils # 0.0 Basophils # 0.0 Nucleated Red Blood Cells # 0.0 Prothrombin Time 14.7 Prothrombin Time Ratio 1.1 INR International 1.14 Normalized Ratio Activated 33.6 Partial Thromboplast Time Sodium Level 137 136 Potassium Level 5.2 H 5.2 H Chloride Level 98 103 Carbon Dioxide Level 18 L 15 L Anion Gap 21 H 18 H Blood Urea Nitrogen 102 H 106 H Creatinine 9.80 H 9.97 H Est Glomerular Filtrat 5 L 5 L Rate mL/min Glucose Level 180 158 Calcium Level 10.2 9.3 Total Bilirubin 0.6 Direct Bilirubin 0.00 Indirect Bilirubin 0.6 Aspartate Amino 22 Transf (AST/SGOT) Alanine 31 Aminotransferase (ALT/SGPT) Alkaline Phosphatase 102 Total Protein 9.7 H Albumin 4.8 Globulin 4.90 H Albumin/Globulin Ratio 0.97 Lipase 204 Blood Gas Specimen Source Blood arterial Arterial Blood Date Drawn 06/08/2019 11:35:40 AM Arterial Blood pH 7.262 *L (Temp corrected) Arterial Blood pCO2 34.3 L (Temp correct) Arterial Blood pO2 73.9 L (Temp corrected) Arterial Blood HCO3 15.1 L Arterial Blood Base Excess -10.8 L Arterial Blood 93.1 L Oxygen Saturation Odilon Test ACCEPTAB Arterial Blood Gas Right Radial Puncture Site Arterial 0.6 Blood Carboxyhemoglobin Arterial Blood 0.3 Methemoglobin Blood Gas A-a O2 34.8 H Differential Oxyhemoglobin Percent 92.3 L Blood Gas Temperature 37.0 Blood Gas Modality ROOM AIR FiO2 21.0 Blood Gas Critical Value FRANKIE CRUZ Read Back Blood Gas Notified Whom TM Blood Gas Notified Time 06/08/2019 11:48:17 AM Phosphorus Level 8.8 H Magnesium Level 1.6 L Creatine Kinase 56 Creatine Kinase Index 1.8 Creatinine Kinase MB (Mass) 1.03 Troponin I < 0.012 Medications Medications Current Medications Ondansetron HCl (Zofran Inj) 4 mg Q6H PRN IV NAUSEA AND/OR VOMITING Last admini stered on 06/08/19at 10:32; Admin Dose 4 MG; Start 06/08/19 at 10:30 Morphine Sulfate (morphine) 4 mg Q4H PRN IV SEVERE PAIN LEVEL 7-10 Last administered on 06/08/19at 16:38; Admin Dose 4 MG; Start 06/08/19 at 11:00 Tamsulosin HCl (Flomax) 0.4 mg QPM PO ; Start 06/08/19 at 21:00 Sodium Bicarbonate/ Dextrose 1,000 ml @ 100 mls/hr Q10H IV Last administered on 06/08/19at 14:01; Admin Dose 100 MLS/HR; Start 06/08/19 at 13:30 Piperacillin Sod/ Tazobactam Sod 50 ml @ 100 mls/hr Q8 IVPB Last administered on 06/08/19 14:01; Admin Dose 100 MLS/HR; Start 06/08/19 at 14:00 ADRIANNA GARCIA MD Jun 08, 2019 18:39
[2019-06-08 20:00] VITALS: BP 114/67; PULSE 67; PULSE 69
[2019-06-08] MEDS ORDERED: traZODone 50 MG TAB PO SCH (21:00)
[2019-06-08] MEDS: TAMSULOSIN (SR) 0.4 MG CAP PO SCH (21:57)
[2019-06-09] VITALS (7 sets, daily range): BP systolic 104–135; BP diastolic 55–75; PULSE 70–94; RESP 18–20
[2019-06-09] MEDS: ONDANSETRON 4 MG INJ IV PRN ×4 (04:45→23:17)
[2019-06-09] MEDS: morphine 4 MG/ML VIAL IV PRN ×4 (04:45→23:03)
[2019-06-09] MEDS: SODIUM BICARBONATE IN D5W 1,000 ML IV SCH (05:08)
[2019-06-09] MEDS: PIPER-TAZO 2.25 GM (PMX) 50 ML IVPB SCH ×3 (06:21→21:36)
[2019-06-09] MEDS: SOD CHLORIDE 0.9% 1,000 ML IV SCH (09:57)
--- NOTE | 2019-06-09 11:15 | CONS ---
Assessment/Plan Assessment/Plan Assessment/Plan (Daily) 64-year-old male who presented with: 1. Non oliguric Acute kidney injury on top of chronic kidney disease with a baseline creatinine of 1.3 to 1.4. Of note, patient had acute kidney injury with a creatinine of 7, which peaked in September 2018 and it came down to 1.43 on discharge. Etiology of acute renal failure is likely secondary to prerenal volume depletion due to episodes of nausea and vomiting. There is no urinalysis obtained. The patient also has a history of benign prostatic hypertrophy. Currently, the patient has not had any urine output. The CT of the abdomen and pelvis shows bilateral renal cortical atrophy with a history of stones. Plus, the patient could also have underlying acute tubular necrosis with nephrotoxic agents like PASCUAL, ARBs and naproxen, ibuprofen. UA+ hemturia/proteinuria1+pro 2. Hyperkalemia, likely secondary to acute kidney injury. 3. Metabolic acidosis, anion gap. Etiology could be secondary to acute kidney injury. 4. Abdominal pain, nausea, vomiting, rule out gallbladder etiology. 5. 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 6. History of atrial fibrillation. 7. Hypertension, currently normotensive. 8. Morbid obesity. 9. Benign prostatic hypertrophy. 10. History of subtotal colectomy. 11. Leukocytosis. 12. Hypomagnesemia. Plan -acidosis improved will DC the bicarb drip with improvement in the kidney function -Change the fluids to NS -monitorUrine output -We will repeat the UA as it has large RBCs WBCs and mild protein, hematuria persistent that will need work-up, patient also has history of kidney stones -Recheck lytes again today, phos also also improved - We will hold off on PASCUAL, ARB and any NSAID. - Advance diet per primary - renally dose all meds Consultation Date/Type/Reason Admit Date/Time Jun 08, 2019 at 06:06 Initial Consult Date 06/08/19 Requesting Provider: ALFA RITCHIE Date/Time of Note DATE: 06/09/19 TIME: 11:10 24 HR Interval Summary Free Text/Dictation he feels a lot better today, denies any nausea vomiting Urine output was 900 yesterday and 200 since this a.m. Exam/Review of Systems Exam Vitals Vital Signs Date Temp Pulse Resp B/P (MAP) Pulse Ox O2 O2 Flow FiO2 Time Delivery Rate 06/09/19 98.1 78 19 128/60 93 11:04 (82) 06/09/19 Room Air 04:00 Intake and Output 06/08/19 06/08/19 06/09/19 1515:00 23:00 07:00 OutputOutput Total 300 ml 900 ml BalanceBalance -300 ml -900 ml Exam ENERAL: Patient opens eyes, The patient is obese. NECK: Supple. HEART: Irregularly irregular. CHEST: Decreased breath sounds bilaterally. ABDOMEN: Soft, diffuse tender, colostomy with brown drainage. EXTREMITIES: Dry. Trace edema. Moves all extremities. Hyperpigmented lesions on the bilateral lower extremities. Results Result Diagram: 06/09/19 0616 06/09/19 0617 Results 24hrs Laboratory Tests Test 06/08/19 17:40 06/08/19 17:57 06/08/19 23:07 06/09/19 06:16 Urine Color MARCELO Urine Clarity CLOUDY A Urine pH 5.0 Urine Specific 1.017 [place] Urine Ketones NEGATIVE Urine Nitrite NEGATIVE Urine Bilirubin NEGATIVE Urine Urobilinogen NEGATIVE Urine Leukocyte 1+ H Esterase Urine Microscopic 142 H RBC Urine Microscopic 25 H WBC Urine Squamous FEW Epithelial Cells Urine Bacteria FEW A Urine Hyaline Casts FEW A Urine Hemoglobin 3+ H Urine Random Sodium < 13 L Urine Glucose NEGATIVE Urine Total Protein 1+ H Sodium Level 135 Potassium Level 5.5 H Chloride Level 102 Carbon Dioxide Level 14 L Anion Gap 19 H Blood Urea Nitrogen 108 H Creatinine 9.63 H Est Glomerular 6 L Filtrat Rate mL/min Glucose Level 131 Calcium Level 9.1 Creatine Kinase 49 57 Creatine Kinase 1.8 1.7 Index Creatinine Kinase MB 0.88 0.97 (Mass) Troponin I < 0.012 < 0.012 White Blood Count 9.7 # Red Blood Count 4.70 Hemoglobin 14.0 Hematocrit 42.2 Mean Corpuscular 89.8 Volume Mean Corpuscular 29.8 Hemoglobin Mean Corpuscular 33.2 Hemoglobin Concent Red Cell 13.2 Distribution Width Platelet Count 233 # Mean Platelet Volume 11.1 H Immature 0.200 Granulocytes % Neutrophils % 79.0 H Lymphocytes % 9.0 L Monocytes % 10.9 Eosinophils % 0.5 Basophils % 0.4 Nucleated Red Blood 0.0 Cells % Immature 0.020 Granulocytes # Neutrophils # 7.6 H Lymphocytes # 0.9 Monocytes # 1.1 H Eosinophils # 0.1 Basophils # 0.0 Nucleated Red Blood 0.0 Cells # Phosphorus Level 6.1 #H Magnesium Level 1.8 Free Thyroxine 1.50 Digoxin Level < 0.4 L Test 06/09/19 06:17 Sodium Level 137 Potassium Level 4.0 Chloride Level 99 Carbon Dioxide Level 24 # Anion Gap 14 H Blood Urea Nitrogen 114 H Creatinine 6.83 #H Est Glomerular 8 L Filtrat Rate mL/min Glucose Level 176 Calcium Level 8.7 Total Bilirubin 0.9 Direct Bilirubin 0.00 Indirect Bilirubin 0.9 Aspartate Amino 19 Transf (AST/SGOT) Alanine 26 Aminotransferase (AL T/SGPT) Alkaline Phosphatase 75 Total Protein 8.0 # Albumin 4.0 Globulin 4.00 H Albumin/Globulin 1.00 Ratio Thyroid Stimulating 0.367 L Hormone (TSH) Medications Medication Current Medications Ondansetron HCl (Zofran Inj) 4 mg Q6H PRN IV NAUSEA AND/OR VOMITING Last administered on 06/09/19 10:58; Admin Dose 4 MG; Start 06/08/19 at 10:30 Morphine Sulfate (morphine) 4 mg Q4H PRN IV SEVERE PAIN LEVEL 7-10 Last administered on 06/09/19 10:58; Admin Dose 4 MG; Start 06/08/19 at 11:00 Tamsulosin HCl (Flomax) 0.4 mg QPM PO Last administered on 06/08/19 21:57; Admin Dose 0.4 MG; Start 06/08/19 at 21:00 Piperacillin Sod/ Tazobactam Sod 50 ml @ 100 mls/hr Q8 IVPB Last administered on 06/09/19 06:21; Admin Dose 100 MLS/HR; Start 06/08/19 at 14:00 Sodium Chloride 1,000 ml @ 100 mls/hr Q10H IV Last administered on 06/09/19 09:57; Admin Dose 100 MLS/HR; Start 06/09/19 at 10:00 SARA LANZA MD Jun 09, 2019 11:14
--- NOTE | 2019-06-09 12:12 | CONS ---
Consult Date/Type/Reason Admit Date/Time Jun 08, 2019 at 06:06 Initial Consult Date 06/08/19 Type of Consultation: cv Requesting Provider: ALFA RITCHIE Date/Time of Note DATE: 06/09/19 TIME: 12:10 Subjective Interventional cardiology follow-up progress note Subjective: Case discussed with staff telemetry was reviewed patient has remained in atrial fibrillation heart is under good control now No chest pain or pressure no palpitation. No nausea vomiting denies able to urinate He wants to drink soda Objective: General: Obese the obese gentleman in no acute distress HEENT: NC/AT. pupils are equal. round. NECK: no stridor. CV: Irregularly irregular systolic murmur; no gallop or rubs. PULM: no wheezing or rhonchi. GI: SOFT, NT, ND, no rebound or guarding Extremity: trace B/L LE edema. no clubbing. neuro: awake and alert, OX3. Psych: calm t rectal: deferred EKG was personally with atrial fibrillation with slow ventricular response non specific T wave abnormalities Abdominal CT has shown: 1. Gallbladder mildly distended at 6 cm transverse diameter. Appearance raises possibility of cholecystitis, consider further evaluation with ultrasound or HIDA scan if clinically warranted. 2. Chronic postsurgical changes related to subtotal colectomy with left lower quadrant ostomy. The large peristomal hernia which contains a nondilated segment of the small bowel no evidence for acute obstruction. 3. Bilateral renal cortical atrophy. Punctate non-obstructing calcifications within both kidneys. 4. Small fat containing bilateral inguinal hernias. 5. Chronic compression deformity of the L1 vertebral body. Echocardiogram was personally reviewed shows: Normal left ventricular systolic function. Normal left ventricular cavity size. Left ventricular wall thickness upper limits of normal. Ejection fraction is visually estimated at 60 %. Tissue Doppler/Mitral Doppler indices are indeterminate in this study due to the presence of atrial fibrillation. There is mild enlargement of left atrium. Mitral valve is not well visualized. Mild mitral leaflet calcification. Mild mitral annular calcification. Trace mitral regurgitation. No significant aortic stenosis or insufficiency. Aortic valve not well visualized. Aortic cusps appear mildly calcified. Normal appearance of the tricuspid valve. Unable to obtain RVSP due to minimal presence of tricuspid regurgitation. Normal size and normal respiratory collapse consistent with normal right atrial pressure. Trivial pericardial effusion. Objective Vitals Vital Signs Date Temp Pulse Resp B/P (MAP) Pulse Ox O2 O2 Flow FiO2 Time Delivery Rate 06/09/19 98.1 78 19 128/60 93 11:04 (82) 06/09/19 Room Air 04:00 Intake and Output 06/08/19 06/08/19 06/09/19 1515:00 23:00 07:00 OutputOutput Total 300 ml 900 ml BalanceBalance -300 ml -900 ml Results/Medications Result Diagram: 06/09/19 0616 06/09/19 0617 Results 24 hrs Laboratory Tests Test 06/08/19 17:40 06/08/19 17:57 06/08/19 23:07 06/09/19 06:16 Urine Color MARCELO Urine Clarity CLOUDY A Urine pH 5.0 Urine Specific 1.017 [place] Urine Ketones NEGATIVE Urine Nitrite NEGATIVE Urine Bilirubin NEGATIVE Urine Urobilinogen NEGATIVE Urine Leukocyte 1+ H Esterase Urine Microscopic 142 H RBC Urine Microscopic 25 H WBC Urine Squamous FEW Epithelial Cells Urine Bacteria FEW A Urine Hyaline Casts FEW A Urine Hemoglobin 3+ H Urine Random Sodium < 13 L Urine Glucose NEGATIVE Urine Total Protein 1+ H Sodium Level 135 Potassium Level 5.5 H Chloride Level 102 Carbon Dioxide Level 14 L Anion Gap 19 H Blood Urea Nitrogen 108 H Creatinine 9.63 H Est Glomerular 6 L Filtrat Rate mL/min Glucose Level 131 Calcium Level 9.1 Creatine Kinase 49 57 Creatine Kinase 1.8 1.7 Index Creatinine Kinase MB 0.88 0.97 (Mass) Troponin I < 0.012 < 0.012 White Blood Count 9.7 # Red Blood Count 4.70 Hemoglobin 14.0 Hematocrit 42.2 Mean Corpuscular 89.8 Volume Mean Corpuscular 29.8 Hemoglobin Mean Corpuscular 33.2 Hemoglobin Concent Red Cell 13.2 Distribution Width Platelet Count 233 # Mean Platelet Volume 11.1 H Immature 0.200 Granulocytes % Neutrophils % 79.0 H Lymphocytes % 9.0 L Monocytes % 10.9 Eosinophils % 0.5 Basophils % 0.4 Nucleated Red Blood 0.0 Cells % Immature 0.020 Granulocytes # Neutrophils # 7.6 H Lymphocytes # 0.9 Monocytes # 1.1 H Eosinophils # 0.1 Basophils # 0.0 Nucleated Red Blood 0.0 Cells # Phosphorus Level 6.1 #H Magnesium Level 1.8 Free Thyroxine 1.50 Digoxin Level < 0.4 L Test 06/09/19 06:17 Sodium Level 137 Potassium Level 4.0 Chloride Level 99 Carbon Dioxide Level 24 # Anion Gap 14 H Blood Urea Nitrogen 114 H Creatinine 6.83 #H Est Glomerular 8 L Filtrat Rate mL/min Glucose Level 176 Calcium Level 8.7 Total Bilirubin 0.9 Direct Bilirubin 0.00 Indirect Bilirubin 0.9 Aspartate Amino 19 Transf (AST/SGOT) Alanine 26 Aminotransferase (AL T/SGPT) Alkaline Phosphatase 75 Total Protein 8.0 # Albumin 4.0 Globulin 4.00 H Albumin/Globulin 1.00 Ratio Thyroid Stimulating 0.367 L Hormone (TSH) Home Meds Active Scripts Ondansetron Hcl* (Zofran*) 4 Mg Tablet, 4 MG PO Q8H PRN for NAUSEA AND/OR VOMITING, #30 TAB Prov:VIRGIL MAC MD 06/08/19 Naproxen* (Naprosyn*) 500 Mg Tablet, 500 MG PO BID PRN for PAIN AND/OR I NFLAMMATION, #30 TAB Prov:VIRGIL MAC MD 06/08/19 Fluticasone Propionate (Flonase Allergy Relief) 9.9 Ml [place].susp, 1 SPRAY NASAL BID for 28 Days, #1 BOTTLE TO EACH NOSTRIL Prov:UMA NICOLAS PA-C 04/04/18 Tamsulosin Hcl* (Flomax*) 0.4 Mg Cap.er.24h, 0.4 MG PO QPM, #30 CAP Prov:BRENDA NUNEZ DO 07/18/17 Reported Medications Lisinopril* (Lisinopril*) 5 Mg Tablet, 1 TAB ORAL DAILY 06/08/19 Hydroxyzine Hcl* (Atarax*) 25 Mg Tab, 1 TAB ORAL TID PRN for ALLERGIC REACTION 06/08/19 Pravastatin Sodium (Pravastatin Sodium) 20 Mg Tablet, 1 TAB ORAL QHS 06/08/19 Furosemide* (Furosemide*) 20 Mg Tablet, 1 TAB ORAL DAILY 06/08/19 Tramadol HCl (Tramadol HCl) 50 Mg Tablet, 1 TAB ORAL TID PRN for PAIN LEVEL 6-10 06/08/19 Zolpidem Tartrate* (Zolpidem Tartrate*) 5 Mg Tablet, 1 TAB ORAL QHS PRN for INSOMNIA 06/08/19 Trazodone Hcl* (Trazodone Hcl*) 50 Mg Tablet, 50 MG PO QHS, #90 TAB 10/08/18 Metoprolol Tartrate* (Lopressor*) 50 Mg Tab, 50 MG PO BID, #60 TAB 10/08/18 Ibuprofen* (Ibuprofen*) 400 Mg Tablet, 400 MG PO Q6H PRN for PAIN, TAB 07/18/17 Pregabalin* (Lyrica*) 25 Mg Capsule, 25 MG PO DAILY, CAP 07/18/17 Discontinued Reported Medications Lisinopril* (Lisinopril*) 10 Mg Tablet, 10 MG PO DAILY, #30 TAB 10/08/18 Pravastatin Sodium* (Pravastatin Sodium*) 10 Mg Tablet, 10 MG PO HS, TAB 08/23/15 Medications Current Medications Ondansetron HCl (Zofran Inj) 4 mg Q6H PRN IV NAUSEA AND/OR VOMITING Last administered on 06/09/19at 10:58; Admin Dose 4 MG; Start 06/08/19 at 10:30 Morphine Sulfate (morphine) 4 mg Q4H PRN IV SEVERE PAIN LEVEL 7-10 Last administered on 06/09/19at 10:58; Admin Dose 4 MG; Start 06/08/19 at 11:00 Tamsulosin HCl (Flomax) 0.4 mg QPM PO Last administered on 06/08/19at 21:57; Admin Dose 0.4 MG; Start 06/08/19 at 21:00 Piperacillin Sod/ Tazobactam Sod 50 ml @ 100 mls/hr Q8 IVPB Last administered on 06/09/19at 06:21; Admin Dose 100 MLS/HR; Start 06/08/19 at 14:00 Sodium Chloride 1,000 ml @ 100 mls/hr Q10H IV Last administered on 06/09/19at 09:57; Admin Dose 100 MLS/HR; Start 06/09/19 at 10:00 Assessment/Plan Hospital Course (Demo Recall) Atrial fibrillation with a slow ventricular response: At least partially secondary to beta-bernadette: Currently heart rate is under good control Acute renal failure: Slowly improving Dehydration History of hypertension morbid obesity Status post colostomy Obstructive sleep apnea ? Cholecystitis Recommendations: We will hold beta-bernadette for now and adjusted as needed Telemetry monitoring for now GI work-up and treatment as per internal medicine IV fluid/ Management as per renal consultants. Start Eliquis 5 mg p.o. twice daily once no surgery is planned Thank you for his referral. We will continue to follow along with you ADRIANNA GARCIA MD [facility] ADRIANNA GARCIA MD Jun 09, 2019 12:12
--- NOTE | 2019-06-09 15:45 | PN ---
Date/Time of Note Date/Time of Note DATE: 06/09/19 TIME: 15:21 Assessment/Plan VTE Prophylaxis Risk score (from Ns)>0 risk: 5 SCD applied (from Ns): Yes Pharmacological prophylaxis: apixaban Lines/Catheters IV Catheter Type (from [facility]): Peripheral IV Assessment/Plan Hospital Course 64 yo M with hypertension, BPH, dyslipidemia, subtotal colectomy (reportedly due to colitis), colostomy, recurrent small bowel obstruction, chronic kidney disease who presented to the emergency room with a 3-day history of abdominal pain, nausea and vomiting, and is currently managed as follows. 1. Abdominal pain / nausea / vomiting: -likely 2/2 uremia and unlikely from cholecystitis with negative HIDA scan -improved -advance diet as tolerated 2. Acute on chronic renal failure with metabolic acidosis and uremia -improving, appreciate nephro input 3. Hyperkalemia -2/2 #2, resolved 4. Chronic atrial fibrillation -had bradycardia and pauses, likely 2/2 BB therapy, rate improved now -remains off BB, cardio following and manging, appreciate input -start anticoagulation 5. History of recurrent colitis status post partial colectomy and colostomy placement without evidence of acute obstruction on CAT scan -stable, advance diet 6. Mild gallbladder distention concerning for possible cholecystitis -negative HIDA, deescalate abx and continue monitoring, will benefit from cholecystectomy eval o/p 6. Chronic bilateral renal atrophy with nonobstructing calcifications within both kidneys 7. Morbid obesity 8. Reactive leukocytosis -improved 9. Hypertension improved 10. History of BPH 11. Dyslipidemia 12. Hyperphophatemia: improving Dispo: -Symptomatic care -Continue close monitoring on telemetry, serial labs and intervention as needed -Further intervention per clinical course -Prophylaxis: Eliquis, Protonix Result Diagram: 06/09/19 0616 06/09/19 0617 Results 24hrs Laboratory Tests Test 06/08/19 17:40 06/08/19 17:57 06/08/19 23:07 06/09/19 06:16 Urine Color MARCELO Urine Clarity CLOUDY A Urine pH 5.0 Urine Specific 1.017 [place] Urine Ketones NEGATIVE Urine Nitrite NEGATIVE Urine Bilirubin NEGATIVE Urine Urobilinogen NEGATIVE Urine Leukocyte 1+ H Esterase Urine Microscopic 142 H RBC Urine Microscopic 25 H WBC Urine Squamous FEW Epithelial Cells Urine Bacteria FEW A Urine Hyaline Casts FEW A Urine Hemoglobin 3+ H Urine Random Sodium < 13 L Urine Glucose NEGATIVE Urine Total Protein 1+ H Sodium Level 135 Potassium Level 5.5 H Chloride Level 102 Carbon Dioxide Level 14 L Anion Gap 19 H Blood Urea Nitrogen 108 H Creatinine 9.63 H Est Glomerular 6 L Filtrat Rate mL/min Glucose Level 131 Calcium Level 9.1 Creatine Kinase 49 57 Creatine Kinase 1.8 1.7 Index Creatinine Kinase MB 0.88 0.97 (Mass) Troponin I < 0.012 < 0.012 White Blood Count 9.7 # Red Blood Count 4.70 Hemoglobin 14.0 Hematocrit 42.2 Mean Corpuscular 89.8 Volume Mean Corpuscular 29.8 Hemoglobin Mean Corpuscular 33.2 Hemoglobin Concent Red Cell 13.2 Distribution Width Platelet Count 233 # Mean Platelet Volume 11.1 H Immature 0.200 Granulocytes % Neutrophils % 79.0 H Lymphocytes % 9.0 L Monocytes % 10.9 Eosinophils % 0.5 Basophils % 0.4 Nucleated Red Blood 0.0 Cells % Immature 0.020 Granulocytes # Neutrophils # 7.6 H Lymphocytes # 0.9 Monocytes # 1.1 H Eosinophils # 0.1 Basophils # 0.0 Nucleated Red Blood 0.0 Cells # Phosphorus Level 6.1 #H Magnesium Level 1.8 Free Thyroxine 1.50 Digoxin Level < 0.4 L Test 06/09/19 06:17 06/09/19 11:15 06/09/19 11:24 Sodium Level 137 Potassium Level 4.0 Chloride Level 99 Carbon Dioxide Level 24 # Anion Gap 14 H Blood Urea Nitrogen 114 H Creatinine 6.83 #H Est Glomerular 8 L Filtrat Rate mL/min Glucose Level 176 Calcium Level 8.7 Total Bilirubin 0.9 Direct Bilirubin 0.00 Indirect Bilirubin 0.9 Aspartate Amino 19 Transf (AST/SGOT) Alanine 26 Aminotransferase (AL T/SGPT) Alkaline Phosphatase 75 Total Protein 8.0 # Albumin 4.0 Globulin 4.00 H Albumin/Globulin 1.00 Ratio Thyroid Stimulating 0.367 L Hormone (TSH) Urine Color YELLOW Urine Clarity CLEAR Urine pH 5.0 Urine Specific 1.017 [place] Urine Ketones NEGATIVE Urine Nitrite NEGATIVE Urine Bilirubin NEGATIVE Urine Urobilinogen NEGATIVE Urine Leukocyte TRACE A Esterase Urine Microscopic 5 RBC Urine Microscopic 10 H WBC Urine Hemoglobin 2+ H Urine Glucose NEGATIVE Urine Total Protein NEGATIVE Creatine Kinase 45 Subjective 24 Hr Interval Summary Free Text/Dictation no new complaints, pain is better, no more vomiting, wants to eat Exam/Review of Systems Exam Vitals Vital Signs Date Temp Pulse Resp B/P (MAP) Pulse Ox O2 O2 Flow FiO2 Time Delivery Rate 06/09/19 98.1 78 19 128/60 93 11:04 (82) 06/09/19 Room Air 04:00 Intake and Output 06/08/19 06/08/19 06/09/19 1515:00 23:00 07:00 OutputOutput Total 300 ml 900 ml BalanceBalance -300 ml -900 ml Exam General: Morbidly obese A&O x3, answering questions appropriately,looks better HEENT: NC/ AT. PERRL. EOM intact Neck: supple CVS: S1, S2, irregularly irregular with bradycardia. no murmurs. no pain on chest wall palpation Lungs: CTA b/l. no wheezing or rhonchi Abd: soft, nontender, +BS, obese, colostomy with liquidly brown drainage, good volume Ext: moving all extremities skin: no rashes Results Results 24hrs Laboratory Tests Test 06/08/19 17:40 06/08/19 17:57 06/08/19 23:07 06/09/19 06:16 Urine Color MARCELO Urine Clarity CLOUDY A Urine pH 5.0 Urine Specific 1.017 [place] Urine Ketones NEGATIVE Urine Nitrite NEGATIVE Urine Bilirubin NEGATIVE Urine Urobilinogen NEGATIVE Urine Leukocyte 1+ H Esterase Urine Microscopic 142 H RBC Urine Microscopic 25 H WBC Urine Squamous FEW Epithelial Cells Urine Bacteria FEW A Urine Hyaline Casts FEW A Urine Hemoglobin 3+ H Urine Random Sodium < 13 L Urine Glucose NEGATIVE Urine Total Protein 1+ H Sodium Level 135 Potassium Level 5.5 H Chloride Level 102 Carbon Dioxide Level 14 L Anion Gap 19 H Blood Urea Nitrogen 108 H Creatinine 9.63 H Est Glomerular 6 L Filtrat Rate mL/min Glucose Level 131 Calcium Level 9.1 Creatine Kinase 49 57 Creatine Kinase 1.8 1.7 Index Creatinine Kinase MB 0.88 0.97 (Mass) Troponin I < 0.012 < 0.012 White Blood Count 9.7 # Red Blood Count 4.70 Hemoglobin 14.0 Hematocrit 42.2 Mean Corpuscular 89.8 Volume Mean Corpuscular 29.8 Hemoglobin Mean Corpuscular 33.2 Hemoglobin Concent Red Cell 13.2 Distribution Width Platelet Count 233 # Mean Platelet Volume 11.1 H Immature 0.200 Granulocytes % Neutrophils % 79.0 H Lymphocytes % 9.0 L Monocytes % 10.9 Eosinophils % 0.5 Basophils % 0.4 Nucleated Red Blood 0.0 Cells % Immature 0.020 Granulocytes # Neutrophils # 7.6 H Lymphocytes # 0.9 Monocytes # 1.1 H Eosinophils # 0.1 Basophils # 0.0 Nucleated Red Blood 0.0 Cells # Phosphorus Level 6.1 #H Magnesium Level 1.8 Free Thyroxine 1.50 Digoxin Level < 0.4 L Test 06/09/19 06:17 06/09/19 11:15 06/09/19 11:24 Sodium Level 137 Potassium Level 4.0 Chloride Level 99 Carbon Dioxide Level 24 # Anion Gap 14 H Blood Urea Nitrogen 114 H Creatinine 6.83 #H Est Glomerular 8 L Filtrat Rate mL/min Glucose Level 176 Calcium Level 8.7 Total Bilirubin 0.9 Direct Bilirubin 0.00 Indirect Bilirubin 0.9 Aspartate Amino 19 Transf (AST/SGOT) Alanine 26 Aminotransferase (AL T/SGPT) Alkaline Phosphatase 75 Total Protein 8.0 # Albumin 4.0 Globulin 4.00 H Albumin/Globulin 1.00 Ratio Thyroid Stimulating 0.367 L Hormone (TSH) Urine Color YELLOW Urine Clarity CLEAR Urine pH 5.0 Urine Specific 1.017 [place] Urine Ketones NEGATIVE Urine Nitrite NEGATIVE Urine Bilirubin NEGATIVE Urine Urobilinogen NEGATIVE Urine Leukocyte TRACE A Esterase Urine Microscopic 5 RBC Urine Microscopic 10 H WBC Urine Hemoglobin 2+ H Urine Glucose NEGATIVE Urine Total Protein NEGATIVE Creatine Kinase 45 Imaging Imaging PROCEDURE: HIDA scan CLINICAL INDICATION: 64 -year-old patient with abdominal pain. TECHNIQUE: Following the intravenous injection of 8.6 mCi of Tc-99m Mebrofenin, multiple anterior dynamic images of the abdomen along with numerous planar spot images of the abdomen were obtained up to 4 hours post injection. COMPARISON: No prior HIDA scans. FINDINGS: The liver is promptly visualized, demonstrates homogeneous distribution of radionuclide. There is a visualization of the common bile duct, gallbladder and gastrointestinal activity within normal time. IMPRESSION: No scintigraphic evidence to suggest the presence of common bile or cystic ducts obstruction. RPTAT: HH .Milagros Dalton MD, Date Time Electronically viewed and signed by .Milagros Dalton MD, MD on 06/08/2019 20:09 .L/ CC: ALFA RITCHIE [phone] Medications Medication Current Medications Ondansetron HCl (Zofran Inj) 4 mg Q6H PRN IV NAUSEA AND/OR VOMITING Last administered on 06/09/19 10:58; Admin Dose 4 MG; Start 06/08/19 at 10:30 Morphine Sulfate (morphine) 4 mg Q4H PRN IV SEVERE PAIN LEVEL 7-10 Last administered on 06/09/19 10:58; Admin Dose 4 MG; Start 06/08/19 at 11:00 Tamsulosin HCl (Flomax) 0.4 mg QPM PO Last administered on 06/08/19 21:57; Admin Dose 0.4 MG; Start 06/08/19 at 21:00 Piperacillin Sod/ Tazobactam Sod 50 ml @ 100 mls/hr Q8 IVPB Last administered on 06/09/19 14:05; Admin Dose 100 MLS/HR; Start 06/08/19 at 14:00 Sodium Chloride 1,000 ml @ 100 mls/hr Q10H IV Last administered on 06/09/19 09:57; Admin Dose 100 MLS/HR; Start 06/09/19 at 10:00 ALFA RITCHIE Jun 09, 2019 15:32
[2019-06-09] MEDS ORDERED: APIXABAN 5 MG TABLET PO SCH (21:00)
[2019-06-09] MEDS: TAMSULOSIN (SR) 0.4 MG CAP PO SCH (21:36)
[2019-06-10] MEDS: SOD CHLORIDE 0.9% 1,000 ML IV SCH ×3 (04:10→15:37)
[2019-06-10 04:12] VITALS: BP 128/72; PULSE 99; RESP 19
[2019-06-10] MEDS: morphine 4 MG/ML VIAL IV PRN (05:03)
[2019-06-10] MEDS: PIPER-TAZO 2.25 GM (PMX) 50 ML IVPB SCH (05:03)
[2019-06-10] MEDS: ONDANSETRON 4 MG INJ IV PRN ×3 (05:03→20:27)
[2019-06-10 07:17] VITALS: BP 116/70; PULSE 83; RESP 17
--- NOTE | 2019-06-10 07:36 | PN ---
Date/Time of Note Date/Time of Note DATE: 06/10/19 TIME: 07:32 Assessment/Plan VTE Prophylaxis Risk score (from Ns)>0 risk: 4 SCD applied (from Ns): Yes Pharmacological prophylaxis: apixaban Lines/Catheters IV [facility] Type (from [facility]): Peripheral IV Assessment/Plan Hospital Course 64 yo M with hypertension, BPH, dyslipidemia, subtotal colectomy (reportedly due to colitis), colostomy, recurrent small bowel obstruction, chronic kidney disease who presented to the emergency room with a 3-day history of abdominal pain, nausea and vomiting, and is currently managed as follows. 1. Abdominal pain / nausea / vomiting: -likely 2/2 uremia and unlikely from cholecystitis with negative HIDA scan -improved -tolerating liquid diet, deescalate pain meds 2. Acute on chronic renal failure with metabolic acidosis and uremia -improving, appreciate nephro input 3. Hyperkalemia -2/2 #2, resolved 4. Chronic atrial fibrillation -had bradycardia and pauses, likely 2/2 BB therapy, rate improved now -remains off BB, cardio following and manging, appreciate input -start anticoagulation -transient episodes of VTach, resume BB? defer to cards 5. History of recurrent colitis status post partial colectomy and colostomy placement without evidence of acute obstruction on CAT scan -stable, fair colostomy output 6. Mild gallbladder distention concerning for possible cholecystitis -negative HIDA, deescalate abx and continue monitoring, will benefit from cholecystectomy eval o/p 6. Chronic bilateral renal atrophy with nonobstructing calcifications within both kidneys 7. Morbid obesity 8. Reactive leukocytosis -improved 9. Hypertension improved 10. History of BPH 11. Dyslipidemia 12. Hyperphophatemia: improving Dispo: -Continue Symptomatic care, plan for possible discharge in a day or 2 if cleared by cardio and nephro -Continue close monitoring on telemetry, serial labs and intervention as needed -Further intervention per clinical course -Prophylaxis: Eliquis, Protonix Result Diagram: 06/10/19 0625 06/10/19 0625 Results 24hrs Laboratory Tests Test 06/09/19 11:15 06/09/19 11:24 06/09/19 18:20 06/10/19 06:25 Urine Color YELLOW Urine Clarity CLEAR Urine pH 5.0 Urine Specific 1.017 [place] Urine Ketones NEGATIVE Urine Nitrite NEGATIVE Urine Bilirubin NEGATIVE Urine Urobilinogen NEGATIVE Urine Leukocyte TRACE A Esterase Urine Microscopic 5 RBC Urine Microscopic 10 H WBC Urine Hemoglobin 2+ H Urine Glucose NEGATIVE Urine Total Protein NEGATIVE Creatine Kinase 45 Sodium Level 135 137 Potassium Level 3.8 4.0 Chloride Level 101 103 Carbon Dioxide Level 21 23 Anion Gap 13 11 Blood Urea Nitrogen 106 H 87 H Creatinine 4.15 #H 2.55 #H Est Glomerular 15 L 26 L Filtrat Rate mL/min Glucose Level 180 188 Calcium Level 8.9 9.0 White Blood Count 8.8 Red Blood Count 4.23 L Hemoglobin 12.8 L Hematocrit 38.4 L Mean Corpuscular 90.8 Volume Mean Corpuscular 30.3 Hemoglobin Mean Corpuscular 33.3 Hemoglobin Concent Red Cell 13.2 Distribution Width Platelet Count 238 Mean Platelet Volume 11.7 H Immature 0.500 H Granulocytes % Neutrophils % 73.1 Lymphocytes % 8.0 L Monocytes % 17.5 H Eosinophils % 0.6 Basophils % 0.3 Nucleated Red Blood 0.0 Cells % Immature 0.040 H Granulocytes # Neutrophils # 6.4 Lymphocytes # 0.7 L Monocytes # 1.5 H Eosinophils # 0.1 Basophils # 0.0 Nucleated Red Blood 0.0 Cells # Subjective 24 Hr Interval Summary Free Text/Dictation 4 beats of Vtach overnight, tolerating diet Exam/Review of Systems Exam Vitals Vital Signs Date Temp Pulse Resp B/P (MAP) Pulse Ox O2 O2 Flow FiO2 Time Delivery Rate 06/10/19 98.3 83 17 116/70 93 07:17 (85) 06/10/19 Room Air 04:12 Intake and Output 06/09/19 06/09/19 06/10/19 1515:00 23:00 07:00 IntakeIntake Total 400 ml 600 ml 3140 ml OutputOutput Total 600 ml 1125 ml 1625 ml BalanceBalance -200 ml -525 ml 1515 ml Exam General: Morbidly obese A&O x3, answering questions appropriately,looks better HEENT: NC/ AT. PERRL. EOM intact Neck: supple CVS: S1, S2, irregularly irregular with bradycardia. no murmurs. no pain on chest wall palpation Lungs: CTA b/l. no wheezing or rhonchi Abd: soft, nontender, +BS, obese, colostomy with liquidly brown drainage, good volume Ext: moving all extremities skin: no rashes Results Results 24hrs Laboratory Tests Test 06/09/19 11:15 06/09/19 11:24 06/09/19 18:20 06/10/19 06:25 Urine Color YELLOW Urine Clarity CLEAR Urine pH 5.0 Urine Specific 1.017 [place] Urine Ketones NEGATIVE Urine Nitrite NEGATIVE Urine Bilirubin NEGATIVE Urine Urobilinogen NEGATIVE Urine Leukocyte TRACE A Esterase Urine Microscopic 5 RBC Urine Microscopic 10 H WBC Urine Hemoglobin 2+ H Urine Glucose NEGATIVE Urine Total Protein NEGATIVE Creatine Kinase 45 Sodium Level 135 137 Potassium Level 3.8 4.0 Chloride Level 101 103 Carbon Dioxide Level 21 23 Anion Gap 13 11 Blood Urea Nitrogen 106 H 87 H Creatinine 4.15 #H 2.55 #H Est Glomerular 15 L 26 L Filtrat Rate mL/min Glucose Level 180 188 Calcium Level 8.9 9.0 White Blood Count 8.8 Red Blood Count 4.23 L Hemoglobin 12.8 L Hematocrit 38.4 L Mean Corpuscular 90.8 Volume Mean Corpuscular 30.3 Hemoglobin Mean Corpuscular 33.3 Hemoglobin Concent Red Cell 13.2 Distribution Width Platelet Count 238 Mean Platelet Volume 11.7 H Immature 0.500 H Granulocytes % Neutrophils % 73.1 Lymphocytes % 8.0 L Monocytes % 17.5 H Eosinophils % 0.6 Basophils % 0.3 Nucleated Red Blood 0.0 Cells % Immature 0.040 H Granulocytes # Neutrophils # 6.4 Lymphocytes # 0.7 L Monocytes # 1.5 H Eosinophils # 0.1 Basophils # 0.0 Nucleated Red Blood 0.0 Cells # Medications Medication Current Medications Ondansetron HCl (Zofran Inj) 4 mg Q6H PRN IV NAUSEA AND/OR VOMITING Last administered on 06/10/19at 05:03; Admin Dose 4 MG; Start 06/08/19 at 10:30 Morphine Sulfate (morphine) 4 mg Q4H PRN IV SEVERE PAIN LEVEL 7-10 Last administered on 06/10/19at 05:03; Admin Dose 4 MG; Start 06/08/19 at 11:00 Tamsulosin HCl (Flomax) 0.4 mg QPM PO Last administered on 06/09/19at 21:36; Admin Dose 0.4 MG; Start 06/08/19 at 21:00 Piperacillin Sod/ Tazobactam Sod 50 ml @ 100 mls/hr Q8 IVPB Last administered on 06/10/19 05:03; Admin Dose 100 MLS/HR; Start 06/08/19 at 14:00 Sodium Chloride 1,000 ml @ 100 mls/hr Q10H IV Last administered on 06/10/19 04:10; Admin Dose 100 MLS/HR; Start 06/09/19 at 10:00 Apixaban (Eliquis) 2.5 mg BID PO Last administered on 06/09/19at 21:36; Admin Dose 2.5 MG; Start 06/09/19 at 21:00 ALFA RITCHIE Jun 10, 2019 07:35
--- NOTE | 2019-06-10 08:34 | CONS ---
Consult Date/Type/Reason Admit Date/Time Jun 08, 2019 at 06:06 Initial Consult Date 06/08/19 Type of Consultation: cv Requesting Provider: ALFA RITCHIE Date/Time of Note DATE: 06/10/19 TIME: 08:33 Subjective Interventional cardiology follow-up progress note Subjective: Case discussed with staff telemetry was reviewed patient has remained in atrial fibrillation heart is under fair control now. No more episodes of bradycardia is noted but patient has intermittently had elevated heart rate though. No chest pain or pressure no palpitation. No nausea vomiting He states that he is able to urinate Objective: General: Obese the obese gentleman in no acute distress HEENT: NC/AT. pupils are equal. round. NECK: no stridor. CV: Irregularly irregular systolic murmur; no gallop or rubs. PULM: no wheezing or rhonchi. GI: SOFT, NT, ND, no rebound or guarding Extremity: trace B/L LE edema. no clubbing. neuro: awake and alert, OX3. Psych: calm t rectal: deferred EKG was personally with atrial fibrillation with slow ventricular response nons pecific T wave abnormalities Abdominal CT has shown: 1. Gallbladder mildly distended at 6 cm transverse diameter. Appearance raises possibility of cholecystitis, consider further evaluation with ultrasound or HIDA scan if clinically warranted. 2. Chronic postsurgical changes related to subtotal colectomy with left lower quadrant ostomy. The large peristomal hernia which contains a nondilated segment of the small bowel no evidence for acute obstruction. 3. Bilateral renal cortical atrophy. Punctate non-obstructing calcifications within both kidneys. 4. Small fat containing bilateral inguinal hernias. 5. Chronic compression deformity of the L1 vertebral body. Echocardiogram was personally reviewed shows: Normal left ventricular systolic function. Normal left ventricular cavity size. Left ventricular wall thickness upper limits of normal. Ejection fraction is visually estimated at 60 %. Tissue Doppler/Mitral Doppler indices are indeterminate in this study due to the presence of atrial fibrillation. There is mild enlargement of left atrium. Mitral valve is not well visualized. Mild mitral leaflet calcification. Mild mitral annular calcification. Trace mitral regurgitation. No significant aortic stenosis or insufficiency. Aortic valve not well visualized. Aortic cusps appear mildly calcified. Normal appearance of the tricuspid valve. Unable to obtain RVSP due to minimal presence of tricuspid regurgitation. Normal size and normal respiratory collapse consistent with normal right atrial pressure. Trivial pericardial effusion. Objective Vitals Vital Signs Date Temp Pulse Resp B/P (MAP) Pulse Ox O2 O2 Flow FiO2 Time Delivery Rate 06/10/19 98.3 83 17 116/70 93 07:17 (85) 06/10/19 Room Air 04:12 Intake and Output 06/09/19 06/09/19 06/10/19 1515:00 23:00 07:00 IntakeIntake Total 400 ml 600 ml 3140 ml OutputOutput Total 600 ml 1125 ml 1625 ml BalanceBalance -200 ml -525 ml 1515 ml Results/Medications Result Diagram: 06/10/19 0625 06/10/19 0625 Results 24 hrs Laboratory Tests Test 06/09/19 11:15 06/09/19 11:24 06/09/19 18:20 06/10/19 06:25 Urine Color YELLOW Urine Clarity CLEAR Urine pH 5.0 Urine Specific 1.017 [place] Urine Ketones NEGATIVE Urine Nitrite NEGATIVE Urine Bilirubin NEGATIVE Urine Urobilinogen NEGATIVE Urine Leukocyte TRACE A Esterase Urine Microscopic 5 RBC Urine Microscopic 10 H WBC Urine Hemoglobin 2+ H Urine Glucose NEGATIVE Urine Total Protein NEGATIVE Creatine Kinase 45 Sodium Level 135 137 Potassium Level 3.8 4.0 Chloride Level 101 103 Carbon Dioxide Level 21 23 Anion Gap 13 11 Blood Urea Nitrogen 106 H 87 H Creatinine 4.15 #H 2.55 #H Est Glomerular 15 L 26 L Filtrat Rate mL/min Glucose Level 180 188 Calcium Level 8.9 9.0 White Blood Count 8.8 Red Blood Count 4.23 L Hemoglobin 12.8 L Hematocrit 38.4 L Mean Corpuscular 90.8 Volume Mean Corpuscular 30.3 Hemoglobin Mean Corpuscular 33.3 Hemoglobin Concent Red Cell 13.2 Distribution Width Platelet Count 238 Mean Platelet Volume 11.7 H Immature 0.500 H Granulocytes % Neutrophils % 73.1 Lymphocytes % 8.0 L Monocytes % 17.5 H Eosinophils % 0.6 Basophils % 0.3 Nucleated Red Blood 0.0 Cells % Immature 0.040 H Granulocytes # Neutrophils # 6.4 Lymphocytes # 0.7 L Monocytes # 1.5 H Eosinophils # 0.1 Basophils # 0.0 Nucleated Red Blood 0.0 Cells # Home Meds Active Scripts Ondansetron Hcl* (Zofran*) 4 Mg Tablet, 4 MG PO Q8H PRN for NAUSEA AND/OR VOMITING, #30 TAB Prov:VIRGIL MAC MD 06/08/19 Naproxen* (Naprosyn*) 500 Mg Tablet, 500 MG PO BID PRN for PAIN AND/OR INFLAMMATION, #30 TAB Prov:VIRGIL MAC MD 06/08/19 Fluticasone Propionate (Flonase Allergy Relief) 9.9 Ml [place].susp, 1 SPRAY NASAL BID for 28 Days, #1 BOTTLE TO EACH NOSTRIL Prov:UMA NICOLAS PA-C 04/04/18 Tamsulosin Hcl* (Flomax*) 0.4 Mg Cap.er.24h, 0.4 MG PO QPM, #30 CAP Prov:BRENDA NUNEZ DO 07/18/17 Reported Medications Lisinopril* (Lisinopril*) 5 Mg Tablet, 1 TAB ORAL DAILY 06/08/19 Hydroxyzine Hcl* (Atarax*) 25 Mg Tab, 1 TAB ORAL TID PRN for ALLERGIC REACTION 06/08/19 Pravastatin Sodium (Pravastatin Sodium) 20 Mg Tablet, 1 TAB ORAL QHS 06/08/19 Furosemide* (Furosemide*) 20 Mg Tablet, 1 TAB ORAL DAILY 06/08/19 Tramadol HCl (Tramadol HCl) 50 Mg Tablet, 1 TAB ORAL TID PRN for PAIN LEVEL 6-10 06/08/19 Zolpidem Tartrate* (Zolpidem Tartrate*) 5 Mg Tablet, 1 TAB ORAL QHS PRN for INSOMNIA 06/08/19 Trazodone Hcl* (Trazodone Hcl*) 50 Mg Tablet, 50 MG PO QHS, #90 TAB 10/08/18 Metoprolol Tartrate* (Lopressor*) 50 Mg Tab, 50 MG PO BID, #60 TAB 10/08/18 Ibuprofen* (Ibuprofen*) 400 Mg Tablet, 400 MG PO Q6H PRN for PAIN, TAB 07/18/17 Pregabalin* (Lyrica*) 25 Mg Capsule, 25 MG PO DAILY, CAP 07/18/17 Discontinued Reported Medications Lisinopril* (Lisinopril*) 10 Mg Tablet, 10 MG PO DAILY, #30 TAB 10/08/18 Pravastatin Sodium* (Pravastatin Sodium*) 10 Mg Tablet, 10 MG PO HS, TAB 08/23/15 Medications Current Medications Ondansetron HCl (Zofran Inj) 4 mg Q6H PRN IV NAUSEA AND/OR VOMITING Last administered on 06/10/19 05:03; Admin Dose 4 MG; Start 06/08/19 at 10:30 Morphine Sulfate (morphine) 4 mg Q4H PRN IV SEVERE PAIN LEVEL 7-10 Last administered on 06/10/19 05:03; Admin Dose 4 MG; Start 06/08/19 at 11:00 Tamsulosin HCl (Flomax) 0.4 mg QPM PO Last administered on 06/09/19 21:36; Admin Dose 0.4 MG; Start 06/08/19 at 21:00 Piperacillin Sod/ Tazobactam Sod 50 ml @ 100 mls/hr Q8 IVPB Last administered on 06/10/19 05:03; Admin Dose 100 MLS/HR; Start 06/08/19 at 14:00 Sodium Chloride 1,000 ml @ 100 mls/hr Q10H IV Last administered on 06/10/19 04:10; Admin Dose 100 MLS/HR; Start 06/09/19 at 10:00 Apixaban (Eliquis) 2.5 mg BID PO Last administered on 06/09/19 21:36; Admin Dose 2.5 MG; Start 06/09/19 at 21:00 Assessment/Plan Hospital Course (Demo Recall) Atrial fibrillation with a slow ventricular response: At least partially secondary to beta-bernadette: Currently heart rate is elevated Acute renal failure: Slowly improving Dehydration History of hypertension morbid obesity Status post colostomy Obstructive sleep apnea ? Cholecystitis Recommendations: We will resume beta-bernadette for now and adjusted as needed Telemetry monitoring for now GI work-up and treatment as per internal medicine IV fluid/ Management as per renal consultants. He is agreeable to taking Eliquis. We will start him on it now Thank you for his referral. We will continue to follow along with you ADRIANNA GARCIA MD [facility] ADRIANNA GARCIA MD Jun 10, 2019 08:34
[2019-06-10] MEDS: APIXABAN 5 MG TABLET PO SCH ×2 (09:05→20:27)
[2019-06-10] MEDS: METOPROLOL 25 MG TAB PO SCH ×2 (09:06→20:27)
[2019-06-10 11:31] VITALS: BP 137/82; PULSE 98; RESP 17
[2019-06-10] MEDS: morphine 2 MG INJ IV PRN (11:45)
[2019-06-10] MEDS: metroNIDAZOLE 500 MG/NS (PMX) 100 ML IVPB SCH ×2 (11:45→22:00)
[2019-06-10] MEDS: DOCUSATE SODIUM 250 MG CAP PO SCH (11:46)
--- NOTE | 2019-06-10 11:56 | CONS ---
Assessment/Plan Assessment/Plan Assessment/Plan (Daily) 4-year-old male who presented with: 1. Non oliguric Acute kidney injury on top of chronic kidney disease with a baseline creatinine of 1.3 to 1.4. Of note, patient had acute kidney injury with a creatinine of 7, which peaked in September 2018 and it came down to 1.43 on discharge. Etiology of acute renal failure is likely secondary to prerenal volume depletion due to episodes of nausea and vomiting. There is no urinalysis obtained. The patient also has a history of benign prostatic hypertrophy. Currently, the patient has not had any urine output. The CT of the abdomen and pelvis shows bilateral renal cortical atrophy with a history of stones. Plus, the patient could also have underlying acute tubular necrosis with nephrotoxic agents like PASCUAL, ARBs and naproxen, ibuprofen. UA+ hemturia/proteinuria1+pro repeat UA is negative, 2. Hyperkalemia, likely secondary to acute kidney injury. 3. Metabolic acidosis, anion gap. Etiology could be secondary to acute kidney injury. 4. Abdominal pain, nausea, vomiting, rule out gallbladder etiology. 5. 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 6. History of atrial fibrillation. 7. Hypertension, currently normotensive. 8. Morbid obesity. 9. Benign prostatic hypertrophy. 10. History of subtotal colectomy. 11. Leukocytosis. 12. Hypomagnesemia. Plan - Cr is dramatically improved continue with NS at 100 cc an hour -monitorUrine output -UA does not have hematuria, 10 WBC and ck 45 - We will hold off on PASCUAL, ARB and any NSAID. - Advance diet per primary - renally dose all meds Consultation Date/Type/Reason Admit Date/Time Jun 08, 2019 at 06:06 Initial Consult Date 06/08/19 Requesting Provider: ALFA RITCHIE Date/Time of Note DATE: 06/10/19 TIME: 11:49 24 HR Interval Summary Free Text/Dictation Patient is feeling better Still had some nausea vomiting Exam/Review of Systems Exam Vitals Vital Signs Date Temp Pulse Resp B/P (MAP) Pulse Ox O2 O2 Flow FiO2 Time Delivery Rate 06/10/19 98.1 98 17 137/82 93 11:31 (100) 06/10/19 Room Air 04:12 Intake and Output 06/09/19 06/09/19 06/10/19 1515:00 23:00 07:00 IntakeIntake Total 400 ml 600 ml 3140 ml OutputOutput Total 600 ml 1125 ml 1625 ml BalanceBalance -200 ml -525 ml 1515 ml Exam ENERAL: Patient opens eyes, The patient is obese. NECK: Supple. HEART: Irregularly irregular. CHEST: Decreased breath sounds bilaterally. ABDOMEN: Soft, diffuse tender, colostomy with brown drainage. EXTREMITIES: Dry. Trace edema. Moves all extremities. Hyperpigmented lesions on the bilateral lower extremities. Results Result Diagram: 06/10/19 0625 06/10/19 0625 Results 24hrs Laboratory Tests Test 06/09/19 18:20 06/10/19 06:25 Sodium Level 135 137 Potassium Level 3.8 4.0 Chloride Level 101 103 Carbon Dioxide Level 21 23 Anion Gap 13 11 Blood Urea Nitrogen 106 H 87 H Creatinine 4.15 #H 2.55 #H Est Glomerular Filtrat Rate mL/min 15 L 26 L Glucose Level 180 188 Calcium Level 8.9 9.0 White Blood Count 8.8 Red Blood Count 4.23 L Hemoglobin 12.8 L Hematocrit 38.4 L Mean Corpuscular Volume 90.8 Mean Corpuscular Hemoglobin 30.3 Mean Corpuscular Hemoglobin Concent 33.3 Red Cell Distribution Width 13.2 Platelet Count 238 Mean Platelet Volume 11.7 H Immature Granulocytes % 0.500 H Neutrophils % 73.1 Lymphocytes % 8.0 L Monocytes % 17.5 H Eosinophils % 0.6 Basophils % 0.3 Nucleated Red Blood Cells % 0.0 Immature Granulocytes # 0.040 H Neutrophils # 6.4 Lymphocytes # 0.7 L Monocytes # 1.5 H Eosinophils # 0.1 Basophils # 0.0 Nucleated Red Blood Cells # 0.0 Medications Medication Current Medications Ondansetron HCl (Zofran Inj) 4 mg Q6H PRN IV NAUSEA AND/OR VOMITING Last administered on 06/10/19at 11:19; Admin Dose 4 MG; Start 06/08/19 at 10:30 Tamsulosin HCl (Flomax) 0.4 mg QPM PO Last administered on 06/09/19at 21:36; Admin Dose 0.4 MG; Start 06/08/19 at 21:00 Sodium Chloride 1,000 ml @ 100 mls/hr Q10H IV Last administered on 06/10/19at 04:10; Admin Dose 100 MLS/HR; Start 06/09/19 at 10:00 Apixaban (Eliquis) 5 mg BID PO Last administered on 06/10/19 09:05; Admin Dose 5 MG; Start 06/10/19 at 09:00 Metoprolol Tartrate (Lopressor) 25 mg BID PO Last administered on 06/10/19 09:06; Admin Dose 25 MG; Start 06/10/19 at 09:00 Acetaminophen/ Hydrocodone Bitart ([place] (7.5-325)) 1 tab Q6H PRN PO MODERATE PAIN LEVEL 4-6; Start 06/10/19 at 11:30 Docusate Sodium (Colace) 250 mg DAILY PO Last administered on 06/10/19 11:46; Admin Dose 250 MG; Start 06/10/19 at 11:30 Ciprofloxacin/ Dextrose 200 ml @ 200 mls/hr Q12 IVPB ; Start 06/10/19 at 21:00 Metronidazole 100 ml @ 100 mls/hr Q8 IVPB Last administered on 06/10/19 11:45; Admin Dose 100 MLS/HR; Start 06/10/19 at 11:30 Morphine Sulfate (morphine) 2 mg Q4H PRN IV SEVERE PAIN LEVEL 7-10 Last administered on 06/10/19 11:45; Admin Dose 2 MG; Start 06/10/19 at 11:30 SARA LANZA MD Jun 10, 2019 11:56
[2019-06-10] MEDS ORDERED: morphine 2 MG INJ IV PRN (15:00)
[2019-06-10 15:18] VITALS: BP 99/57; PULSE 61; RESP 17
[2019-06-10 20:18] VITALS: BP 109/71; PULSE 93; RESP 20
[2019-06-10 20:25] VITALS: Ht 175.3 cm; Wt 147.0 kg
[2019-06-10] MEDS: TAMSULOSIN (SR) 0.4 MG CAP PO SCH (20:27)
[2019-06-10] MEDS: CIPROFLOXACIN 400MG/D5W 200 ML IVPB SCH (20:28)
[2019-06-10] MEDS: HYDROCODONE/APAP (7.5/325) TAB PO PRN (20:28)
[2019-06-10 23:53] VITALS: BP 112/69; PULSE 74; RESP 20
[2019-06-11] MEDS ORDERED: METOCLOPRAMIDE 10 MG INJ IV PRN (01:00)
[2019-06-11] MEDS: ONDANSETRON 4 MG INJ IV PRN ×3 (02:25→18:14)
[2019-06-11] MEDS: morphine 2 MG INJ IV PRN ×2 (02:25→08:30)
[2019-06-11 04:00] VITALS: BP 128/58; PULSE 72; RESP 20
[2019-06-11] MEDS: metroNIDAZOLE 500 MG/NS (PMX) 100 ML IVPB SCH (06:30)
--- NOTE | 2019-06-11 07:55 | CONS ---
Consult Date/Type/Reason Admit Date/Time Jun 08, 2019 at 06:06 Initial Consult Date 06/08/19 Type of Consultation: cv Requesting Provider: ALFA RITCHIE Date/Time of Note DATE: 06/11/19 TIME: 07:54 Subjective Interventional cardiology follow-up progress note Subjective: Case discussed with staff telemetry was reviewed patient has remained in atrial fibrillation heart is under fair control now and is intermittently elevated. No more episodes of bradycardia is noted but patient has intermittently had elevated heart rate though. No chest pain or pressure no palpitation. No nausea vomiting Objective: General: Obese the obese gentleman in no acute distress HEENT: NC/AT. pupils are equal. round. NECK: no stridor. CV: Irregularly irregular systolic murmur; no gallop or rubs. PULM: no wheezing or rhonchi. GI: SOFT, NT, ND, no rebound or guarding Extremity: trace B/L LE edema. no clubbing. neuro: awake and alert, OX3. Psych: calm t rectal: deferred EKG was personally with atrial fibrillation with slow ventricular response nonspecific T wave abnormalities Abdominal CT has shown: 1. Gallbladder mildly distended at 6 cm transverse diameter. Appearance raises possibility of cholecystitis, consider further evaluation with ultrasound or HIDA scan if clinically warranted. 2. Chronic postsurgical changes related to subtotal colectomy with left lower quadrant ostomy. The large peristomal hernia which contains a nondilated segment of the small bowel no evidence for acute obstruction. 3. Bilateral renal cortical atrophy. Punctate non-obstructing calcifications within both kidneys. 4. Small fat containing bilateral inguinal hernias. 5. Chronic compression deformity of the L1 vertebral body. Echocardiogram was personally reviewed shows: Normal left ventricular systolic function. Normal left ventricular cavity size. Left ventricular wall thickness upper limits of normal. Ejection fraction is visually estimated at 60 %. Tissue Doppler/Mitral Doppler indices are indeterminate in this study due to the presence of atrial fibrillation. There is mild enlargement of left atrium. Mitral valve is not well visualized. Mild mitral leaflet calcification. Mild mitral annular calcification. Trace mitral regurgitation. No significant aortic stenosis or insufficiency. Aortic valve not well visualized. Aortic cusps appear mildly calcified. Normal appearance of the tricuspid valve. Unable to obtain RVSP due to minimal presence of tricuspid regurgitation. Normal size and normal respiratory collapse consistent with normal right atrial pressure. Trivial pericardial effusion. Objective Vitals Vital Signs Date Temp Pulse Resp B/P (MAP) Pulse Ox O2 O2 Flow FiO2 Time Delivery Rate 06/11/19 98.9 72 20 128/58 96 04:00 (81) 06/10/19 Room Air 04:12 Intake and Output 06/10/19 06/10/19 06/11/19 1414:59 22:59 06:59 IntakeIntake Total 690 ml 1500 ml 850 ml OutputOutput Total 1025 ml 750 ml 1500 ml BalanceBalance -335 ml 750 ml -650 ml Results/Medications Result Diagram: 06/11/1963206/11/19632 Results 24 hrs Laboratory Tests Test 06/11/19 06:33 White Blood Count 15.2 #H Red Blood Count 3.60 L Hemoglobin 10.9 L Hematocrit 34.3 L Mean Corpuscular Volume 95.3 Mean Corpuscular Hemoglobin 30.3 Mean Corpuscular Hemoglobin Concent 31.8 L Red Cell Distribution Width 13.2 Platelet Count 197 Mean Platelet Volume 12.2 H Immature Granulocytes % 0.400 Neutrophils % 90.4 H Lymphocytes % 2.6 L Monocytes % 6.1 Eosinophils % 0.2 Basophils % 0.3 Nucleated Red Blood Cells % 0.0 Immature Granulocytes # 0.060 H Neutrophils # 13.8 H Lymphocytes # 0.4 L Monocytes # 0.9 Eosinophils # 0.0 Basophils # 0.0 Nucleated Red Blood Cells # 0.0 Sodium Level 136 Potassium Level 4.8 Chloride Level 102 Carbon Dioxide Level 24 Anion Gap 10 Blood Urea Nitrogen 73 H Creatinine 1.80 H Est Glomerular Filtrat Rate mL/min 38 L Glucose Level 183 Calcium Level 8.7 Home Meds Active Scripts Apixaban* (Eliquis*) 5 Mg Tablet, 5 MG PO BID, #60 TAB 3 Refills Prov:ERMAALFA 06/10/19 Ondansetron Hcl* (Zofran*) 4 Mg Tablet, 4 MG PO Q8H PRN for NAUSEA AND/OR VOMITING, #30 TAB Prov:VIRGIL MAC MD 06/08/19 Naproxen* (Naprosyn*) 500 Mg Tablet, 500 MG PO BID PRN for PAIN AND/OR INFLAMMATION, #30 TAB Prov:VIRGIL MAC MD 06/08/19 Fluticasone Propionate (Flonase Allergy Relief) 9.9 Ml [place].susp, 1 SPRAY NASAL BID for 28 Days, #1 BOTTLE TO EACH NOSTRIL Prov:UMA NICOLAS PA-C 04/04/18 Tamsulosin Hcl* (Flomax*) 0.4 Mg Cap.er.24h, 0.4 MG PO QPM, #30 CAP Prov:LANEGISELEYODITBRENDA AlexandraTony SHERMAN 07/18/17 Reported Medications Lisinopril* (Lisinopril*) 5 Mg Tablet, 1 TAB ORAL DAILY 06/08/19 Hydroxyzine Hcl* (Atarax*) 25 Mg Tab, 1 TAB ORAL TID PRN for ALLERGIC REACTION 06/08/19 Pravastatin Sodium (Pravastatin Sodium) 20 Mg Tablet, 1 TAB ORAL QHS 06/08/19 Furosemide* (Furosemide*) 20 Mg Tablet, 1 TAB ORAL DAILY 06/08/19 Tramadol HCl (Tramadol HCl) 50 Mg Tablet, 1 TAB ORAL TID PRN for PAIN LEVEL 6-10 06/08/19 Zolpidem Tartrate* (Zolpidem Tartrate*) 5 Mg Tablet, 1 TAB ORAL QHS PRN for INSOMNIA 06/08/19 Trazodone Hcl* (Trazodone Hcl*) 50 Mg Tablet, 50 MG PO QHS, #90 TAB 10/08/18 Metoprolol Tartrate* (Lopressor*) 50 Mg Tab, 50 MG PO BID, #60 TAB 10/08/18 Ibuprofen* (Ibuprofen*) 400 Mg Tablet, 400 MG PO Q6H PRN for PAIN, TAB 07/18/17 Pregabalin* (Lyrica*) 25 Mg Capsule, 25 MG PO DAILY, CAP 07/18/17 Discontinued Reported Medications Lisinopril* (Lisinopril*) 10 Mg Tablet, 10 MG PO DAILY, #30 TAB 10/08/18 Pravastatin Sodium* (Pravastatin Sodium*) 10 Mg Tablet, 10 MG PO HS, TAB 08/23/15 Medications Current Medications Ondansetron HCl (Zofran Inj) 4 mg Q6H PRN IV NAUSEA AND/OR VOMITING Last administered on 06/11/19at 02:25; Admin Dose 4 MG; Start 06/08/19 at 10:30 Tamsulosin HCl (Flomax) 0.4 mg QPM PO Last administered on 06/10/19 20:27; Admin Dose 0.4 MG; Start 06/08/19 at 21:00 Sodium Chloride 1,000 ml @ 100 mls/hr Q10H IV Last administered on 06/10/19 15:37; Admin Dose 100 MLS/HR; Start 06/09/19 at 10:00 Apixaban (Eliquis) 5 mg BID PO Last administered on 06/10/19 20:27; Admin Dose 5 MG; Start 06/10/19 at 09:00 Metoprolol Tartrate (Lopressor) 25 mg BID PO Last administered on 06/10/19 20:27; Admin Dose 25 MG; Start 06/10/19 at 09:00 Acetaminophen/ Hydrocodone Bitart ([place] (7.5-325)) 1 tab Q6H PRN PO MODERATE PAIN LEVEL 4-6 Last administered on 06/10/19 20:28; Admin Dose 1 TAB; Start 06/10/19 at 11:30 Docusate Sodium (Colace) 250 mg DAILY PO Last administered on 06/10/19 11:46; Admin Dose 250 MG; Start 06/10/19 at 11:30 Ciprofloxacin/ Dextrose 200 ml @ 200 mls/hr Q12 IVPB Last administered on 06/10/19 20:28; Admin Dose 200 MLS/HR; Start 06/10/19 at 21:00 Metronidazole 100 ml @ 100 mls/hr Q8 IVPB Last administered on 06/11/19 06:30; Admin Dose 100 MLS/HR; Start 06/10/19 at 11:30 Morphine Sulfate (morphine) 2 mg Q4H PRN IV SEVERE PAIN LEVEL 7-10 Last administered on 06/11/19 02:25; Admin Dose 2 MG; Start 06/10/19 at 11:30 Metoclopramide HCl (Reglan) 10 mg Q6H PRN IV NAUSEA AND/OR VOMITING Last administered on 06/11/19 00:45; Admin Dose 10 MG; Start 06/11/19 at 01:00 Assessment/Plan Hospital Course (Demo Recall) Atrial fibrillation with tachy/bradycardia Acute renal failure: Slowly improving Dehydration History of hypertension morbid obesity Status post colostomy Obstructive sleep apnea ? Cholecystitis Recommendations: We will inc beta-bernadette now that HR is higher Telemetry monitoring for now GI work-up and treatment as per internal medicine IV fluid/ Management as per renal consultants. He is agreeable to taking Eliquis. cont diane Thank you for his referral. We will continue to follow along with you ADRIANNA GARCIA MD [facility] ADRIANNA GARCIA MD Jun 11, 2019 07:55
[2019-06-11 08:17] VITALS: BP 120/69; PULSE 101; RESP 18
[2019-06-11] MEDS: SOD CHLORIDE 0.9% 1,000 ML IV SCH (08:28)
[2019-06-11] MEDS: DOCUSATE SODIUM 250 MG CAP PO SCH (08:29)
[2019-06-11] MEDS: APIXABAN 5 MG TABLET PO SCH ×2 (08:29→20:36)
[2019-06-11] MEDS: CIPROFLOXACIN 400MG/D5W 200 ML IVPB SCH (08:29)
[2019-06-11] MEDS: METOPROLOL 25 MG TAB PO SCH (08:30)
[2019-06-11] MEDS ORDERED: DILTIAZEM 25 MG INJ IV ONE (09:30)
[2019-06-11] MEDS ORDERED: ADENOSINE 3 MG/ML SYRINGE IV ONE (09:30)
--- NOTE | 2019-06-11 10:28 | PN ---
Date/Time of Note Date/Time of Note DATE: 06/11/19 TIME: 10:09 Assessment/Plan VTE Prophylaxis Risk score (from Ns)>0 risk: 5 SCD applied (from Ns): Yes Pharmacological prophylaxis: apixaban Lines/Catheters IV Catheter Type (from [facility]): Peripheral IV Assessment/Plan Hospital Course 64 yo M with hypertension, BPH, dyslipidemia, subtotal colectomy (reportedly due to colitis), colostomy, recurrent small bowel obstruction, chronic kidney disease who presented to the emergency room with a 3-day history of abdominal pain, nausea and vomiting, and is currently managed as follows. 1. Abdominal pain / nausea / vomiting: -This was patient's presenting complaint, his symptoms had improved however advancing his diet, but had new bouts of vomiting today. -Patient has no leg edema and sludge on imaging, but HIDA scan was negative for cholecystitis. However with new vomiting, will go ahead and resume Zosyn, will get general surgery consultation to see if patient would benefit from cholecystectomy. Plan was for outpatient evaluation for this. -Patient may also probably having some gastroparesis, so we will institute aggressive bowel regimen, give scheduled Reglan dosing, de-escalate diet, and se e how he does. -Further interventions will depend on his overall clinical course -At this time patient is doing much better. 2. Acute on chronic renal failure with metabolic acidosis and uremia -Patient continues to significantly improve 3. Hyperkalemia -2/2 #2, resolved 4. Chronic atrial fibrillation with transient episodes of rapid right ventricular response -had bradycardia and pauses, likely 2/2 BB therapy, his beta-bernadette therapy was stopped and we are now slowly escalating. -Episodes rapid response ventricular response today likely secondary to vomiting, patient responded very well to 1 dose of intravenous Cardizem, will continue this as needed -Beta-bernadette dosage being slowly uptitrated by cardiology 5. History of recurrent colitis status post partial colectomy and colostomy placement without evidence of acute obstruction on CAT scan -stable, fair colostomy output 6. Mild gallbladder distention concerning for possible cholecystitis -negative HIDA, see #1 6. Chronic bilateral renal atrophy with nonobstructing calcifications within both kidneys 7. Morbid obesity 8. Reactive leukocytosis -improved 9. Hypertension improved 10. History of BPH 11. Dyslipidemia 12. Hyperphosphatemia: improving Dispo: -Continue close monitoring on telemetry, serial labs and intervention as needed -Further intervention per clinical course -Prophylaxis: Eliquis, Protonix Critical care time today: Greater than 40 minutes, I also spoke with consultants and reviewed bedside imaging Result Diagram: 06/11/19 0633 06/11/19 0633 Results 24hrs Laboratory Tests Test 06/11/19 06:33 06/11/19 09:13 White Blood Count 15.2 #H Red Blood Count 3.60 L Hemoglobin 10.9 L Hematocrit 34.3 L Mean Corpuscular Volume 95.3 Mean Corpuscular Hemoglobin 30.3 Mean Corpuscular Hemoglobin Concent 31.8 L Red Cell Distribution Width 13.2 Platelet Count 197 Mean Platelet Volume 12.2 H Immature Granulocytes % 0.400 Neutrophils % 90.4 H Lymphocytes % 2.6 L Monocytes % 6.1 Eosinophils % 0.2 Basophils % 0.3 Nucleated Red Blood Cells % 0.0 Immature Granulocytes # 0.060 H Neutrophils # 13.8 H Lymphocytes # 0.4 L Monocytes # 0.9 Eosinophils # 0.0 Basophils # 0.0 Nucleated Red Blood Cells # 0.0 Sodium Level 136 Potassium Level 4.8 Chloride Level 102 Carbon Dioxide Level 24 Anion Gap 10 Blood Urea Nitrogen 73 H Creatinine 1.80 H Est Glomerular Filtrat Rate mL/min 38 L Glucose Level 183 Calcium Level 8.7 Bedside Glucose 175 Subjective 24 Hr Interval Summary Free Text/Dictation Patient was vomiting this morning and developed severe tachycardia with heart rates to the 180s. Rapid response was called and patient was seen a critical care situation and management instituted as below. Patient denied chest pain, he was quite anxious but without shortness of breath. His main issue was the nausea and vomiting. He had some abdominal cramping with that. There is no documentation of fever though. Denies right upper quadrant abdominal pain. Exam/Review of Systems Exam Vitals Vital Signs Date Temp Pulse Resp B/P (MAP) Pulse Ox O2 O2 Flow FiO2 Time Delivery Rate 06/11/19 160 10:04 06/11/19 97.4 18 120/69 98 Room Air 08:17 (86) Intake and Output 06/10/19 06/10/19 06/11/19 1515:00 23:00 07:00 IntakeIntake Total 690 ml 1600 ml 750 ml OutputOutput Total 1025 ml 750 ml 1500 ml BalanceBalance -335 ml 850 ml -750 ml Exam General: Morbidly obese A&O x3, answering questions appropriately,looks better HEENT: NC/ AT. PERRL. EOM intact Neck: supple CVS: S1, S2, irregularly irregular with bradycardia. no murmurs. no pain on chest wall palpation Lungs: CTA b/l. no wheezing or rhonchi Abd: soft, nontender, +BS, obese, colostomy with liquidly brown drainage, good volume Ext: moving all extremities skin: no rashes Results Results 24hrs Laboratory Tests Test 06/11/19 06:33 06/11/19 09:13 White Blood Count 15.2 #H Red Blood Count 3.60 L Hemoglobin 10.9 L Hematocrit 34.3 L Mean Corpuscular Volume 95.3 Mean Corpuscular Hemoglobin 30.3 Mean Corpuscular Hemoglobin Concent 31.8 L Red Cell Distribution Width 13.2 Platelet Count 197 Mean Platelet Volume 12.2 H Immature Granulocytes % 0.400 Neutrophils % 90.4 H Lymphocytes % 2.6 L Monocytes % 6.1 Eosinophils % 0.2 Basophils % 0.3 Nucleated Red Blood Cells % 0.0 Immature Granulocytes # 0.060 H Neutrophils # 13.8 H Lymphocytes # 0.4 L Monocytes # 0.9 Eosinophils # 0.0 Basophils # 0.0 Nucleated Red Blood Cells # 0.0 Sodium Level 136 Potassium Level 4.8 Chloride Level 102 Carbon Dioxide Level 24 Anion Gap 10 Blood Urea Nitrogen 73 H Creatinine 1.80 H Est Glomerular Filtrat Rate mL/min 38 L Glucose Level 183 Calcium Level 8.7 Bedside Glucose 175 Medications Medication Current Medications Ondansetron HCl (Zofran Inj) 4 mg Q6H PRN IV NAUSEA AND/OR VOMITING Last administered on 06/11/19 08:29; Admin Dose 4 MG; Start 06/08/19 at 10:30 Tamsulosin HCl (Flomax) 0.4 mg QPM PO Last administered on 06/10/19 20:27; Admin Dose 0.4 MG; Start 06/08/19 at 21:00 Apixaban (Eliquis) 5 mg BID PO Last administered on 06/11/19 08:29; Admin Dose 5 MG; Start 06/10/19 at 09:00 Metoprolol Tartrate (Lopressor) 25 mg BID PO Last administered on 06/11/19 08:30; Admin Dose 25 MG; Start 06/10/19 at 09:00 Acetaminophen/ Hydrocodone Bitart ([place] (7.5-325)) 1 tab Q6H PRN PO MODERATE PAIN LEVEL 4-6 Last administered on 06/10/19 20:28; Admin Dose 1 TAB; Start 06/10/19 at 11:30 Docusate Sodium (Colace) 250 mg DAILY PO Last administered on 06/11/19 08:29; Admin Dose 250 MG; Start 06/10/19 at 11:30 Morphine Sulfate (morphine) 2 mg Q4H PRN IV SEVERE PAIN LEVEL 7-10 Last administered on 06/11/19 08:30; Admin Dose 2 MG; Start 06/10/19 at 11:30 Metoclopramide HCl (Reglan) 10 mg Q6H PRN IV NAUSEA AND/OR VOMITING Last administered on 06/11/19 00:45; Admin Dose 10 MG; Start 06/11/19 at 01:00 Piperacillin Sod/ Tazobactam Sod 100 ml @ 200 mls/hr Q8 IVPB ; Start 06/11/19 at 10:00 ALFA RITCHIE Jun 11, 2019 10:20
[2019-06-11] MEDS ORDERED: DILTIAZEM 25 MG INJ IV PRN (10:30)
[2019-06-11] MEDS: PIPER-TAZO 3.375 GM IV (PMX) 100 ML IVPB SCH ×2 (10:34→15:38)
[2019-06-11] MEDS: METOCLOPRAMIDE 10 MG INJ IV SCH ×3 (10:34→22:13)
[2019-06-11] MEDS: POLYETHYLENE GLYCOL 17 GM PACKET PO SCH (10:34)
[2019-06-11 11:41] VITALS: BP 110/61; PULSE 96; RESP 18
[2019-06-11 15:22] VITALS: BP 106/60; PULSE 73; RESP 18
--- NOTE | 2019-06-11 16:02 | CONS ---
Assessment/Plan Assessment/Plan Hospital Course (Demo Recall) 1. Abdominal pain: ddx: LLQ parastomal hernia, ? intermittent partial obstruction vs. GB (HIDA negative- low likelihood) vs. adhesions vs. other -sbft -pain mgt -will attempt to manually reduce parastomal hernia 2. Acute on chronic kidney dx -per renal -judicious fluids -renally dose meds -limit nephrotoxins 3. Afib with RVR -rate control -anticoagulation -per cards 4. Leukocytosis: No infectious symptoms -Further work-up if persistent 5. Abnormal UA -frequent bladder emptying/cath care 6.hypertension, dyslipidemia -Highly encouraged weight loss -Medical management 7. Morbid obesity BMI: 48 -diet and exercise optimization -encourage weight loss Thank you. Patient seen and examined in collaboration with Dr. Ziyad Albrecht. Consultation Date/Type/Reason Admit Date/Time Jun 08, 2019 at 06:06 Date of Consultation: Jun 11, 2019 Type of Consult Surgical Reason for Consultation abdominal pain Requesting Provider: ALFA RITCHIE Date/Time of Note DATE: 06/11/19 TIME: 15:24 Hx of Present Illness Ramon Kearney is a 64 yo man who presented with abdominal pain predominantly in the left lower quadrant for the last 3 days. He has had a history of recurrent colitis in the past and has had a colectomy done and has a residual colostomy. Associated symptoms include nausea with vomiting, nonbloody emesis. He denies fever, denies chest pain. He denies hematemesis. He continues to have output from his colostomy bag, however minimal. His CT in the emergency room showed a mildly distended gallbladder at 6 cm transverse diameter with concern for possible cholecystitis. HIDA scan was negative. CT also showed a large parastomal hernia containing nondilated segment of small bowel without evidence of acute obstruction. He was also noted have LA on CKD, being evaluated by nephrology specialist. Additional laboratory findings include leukocytosis. General surgery was asked to to evaluate. 12 point ros wa performed and is negative except for as stated in hpi. Past Medical History hypertension BPH dyslipidemia subtotal colectomy (reportedly due to colitis), ostomy, recurrent small bowel obstruction CKD with multiple stones Paroxysmal Afib Chronic compression fracture Morbid Obesity Home Meds Active Scripts Apixaban* (Eliquis*) 5 Mg Tablet, 5 MG PO BID, #60 TAB 3 Refills Prov:ALFA RITCHIETony 06/10/19 Ondansetron Hcl* (Zofran*) 4 Mg Tablet, 4 MG PO Q8H PRN for NAUSEA AND/OR VOMITING, #30 TAB Prov:VIRGIL MAC MD 06/08/19 Naproxen* (Naprosyn*) 500 Mg Tablet, 500 MG PO BID PRN for PAIN AND/OR INFLAMMATION, #30 TAB Prov:VIRGIL MAC MD 06/08/19 Fluticasone Propionate (Flonase Allergy Relief) 9.9 Ml Mikado.susp, 1 SPRAY NASAL BID for 28 Days, #1 BOTTLE TO EACH NOSTRIL Prov:UMA NICOLAS PA-C 04/04/18 Tamsulosin Hcl* (Flomax*) 0.4 Mg Cap.er.24h, 0.4 MG PO QPM, #30 CAP Prov:BRENDA NUNEZ DO 07/18/17 Reported Medications Lisinopril* (Lisinopril*) 5 Mg Tablet, 1 TAB ORAL DAILY 06/08/19 Hydroxyzine Hcl* (Atarax*) 25 Mg Tab, 1 TAB ORAL TID PRN for ALLERGIC REACTION 06/08/19 Pravastatin Sodium (Pravastatin Sodium) 20 Mg Tablet, 1 TAB ORAL QHS 06/08/19 Furosemide* (Furosemide*) 20 Mg Tablet, 1 TAB ORAL DAILY 06/08/19 Tramadol HCl (Tramadol HCl) 50 Mg Tablet, 1 TAB ORAL TID PRN for PAIN LEVEL 6-10 06/08/19 Zolpidem Tartrate* (Zolpidem Tartrate*) 5 Mg Tablet, 1 TAB ORAL QHS PRN for INSOMNIA 06/08/19 Trazodone Hcl* (Trazodone Hcl*) 50 Mg Tablet, 50 MG PO QHS, #90 TAB 10/08/18 Metoprolol Tartrate* (Lopressor*) 50 Mg Tab, 50 MG PO BID, #60 TAB 10/08/18 Ibuprofen* (Ibuprofen*) 400 Mg Tablet, 400 MG PO Q6H PRN for PAIN, TAB 07/18/17 Pregabalin* (Lyrica*) 25 Mg Capsule, 25 MG PO DAILY, CAP 07/18/17 Discontinued Reported Medications Lisinopril* (Lisinopril*) 10 Mg Tablet, 10 MG PO DAILY, #30 TAB 10/08/18 Pravastatin Sodium* (Pravastatin Sodium*) 10 Mg Tablet, 10 MG PO HS, TAB 08/23/15 Medications Current Medications Ondansetron HCl (Zofran Inj) 4 mg Q6H PRN IV NAUSEA AND/OR VOMITING Last administered on 06/11/19 08:29; Admin Dose 4 MG; Start 06/08/19 at 10:30 Tamsulosin HCl (Flomax) 0.4 mg QPM PO Last administered on 06/10/19 20:27; Admin Dose 0.4 MG; Start 06/08/19 at 21:00 Apixaban (Eliquis) 5 mg BID PO Last administered on 06/11/19 08:29; Admin Dose 5 MG; Start 06/10/19 at 09:00 Acetaminophen/ Hydrocodone Bitart ([place] (7.5-325)) 1 tab Q6H PRN PO MODERATE PAIN LEVEL 4-6 Last administered on 06/10/19 20:28; Admin Dose 1 TAB; Start 06/10/19 at 11:30 Docusate Sodium (Colace) 250 mg DAILY PO Last administered on 06/11/19 08:29; Admin Dose 250 MG; Start 06/10/19 at 11:30 Metoclopramide HCl (Reglan) 10 mg Q6H PRN IV NAUSEA AND/OR VOMITING Last administered on 06/11/19 00:45; Admin Dose 10 MG; Start 06/11/19 at 01:00 Piperacillin Sod/ Tazobactam Sod 100 ml @ 200 mls/hr Q8 IVPB Last administered on 06/11/19 10:34; Admin Dose 200 MLS/HR; Start 06/11/19 at 10:00 Polyethylene Glycol (Miralax) 17 gm DAILY PO Last administered on 06/11/19 10:34; Admin Dose 17 GM; Start 06/11/19 at 10:30 Metoclopramide HCl (Reglan) 10 mg Q6H IV Last administered on 06/11/19 10:34; Admin Dose 10 MG; Start 06/11/19 at 10:30; Stop 06/13/19 at 10:29 Metoprolol Tartrate (Lopressor) 50 mg BID PO ; Start 06/11/19 at 21:00 Diltiazem HCl (Cardizem Iv) 5 mg Q1H PRN IV HR >120; Start 06/11/19 at 10:30 Allergies: Coded Allergies: No Known Drug Allergies (Verified Allergy, Unknown, 04/29/16) Past Surgical History as above Past Surgical Hx: other (Partial colectomy, colostomy placement, left ankle surgery, right knee replacement) Family History Significant Family History: no pertinent family hx Social History Smoking Status: Former smoker Exam/Review of Systems Exam Vitals Vital Signs Date Temp Pulse Resp B/P (MAP) Pulse Ox O2 O2 Flow FiO2 Time Delivery Rate 06/11/19 98.7 96 18 110/61 95 Room Air 11:41 (77) Intake and Output 06/10/19 06/10/19 06/11/19 1515:00 23:00 07:00 IntakeIntake Total 690 ml 1600 ml 750 ml OutputOutput Total 1025 ml 750 ml 1500 ml BalanceBalance -335 ml 850 ml -750 ml Constitutional: alert, oriented Psych: nl mood/affect; No anxiety Head: normocephalic, atraumatic Eyes: nl conjunctiva, EOMI, nl lids, nl sclera ENMT: nl external ears & nose, nl lips & teeth, mucosa pink and moist Neck: supple, non-tender; No jvd Respiratory: normal air movement; No congested cough Cardiovascular: nl pulses; No regular rate and rhythm (Atrial fibrillation currently controlled), No edema Gastrointestinal: soft, surgical scars, tender (Parastomal), other (Large pannus) Genitourinary - Male: nl penis, nl scrotum Musculoskeletal: nl gait and stance Extremities: normal pulses Neurological: nl mental status, nl speech, nl strength Skin: nl turgor; No rash or lesions Results Result Diagram: 06/11/1933 06/11/19 0633 Results 24hrs Laboratory Tests Test 06/11/19 06:33 06/11/19 07:00 06/11/19 09:13 White Blood Count 15.2 #H Red Blood Count 3.60 L Hemoglobin 10.9 L Hematocrit 34.3 L Mean Corpuscular Volume 95.3 Mean Corpuscular Hemoglobin 30.3 Mean Corpuscular Hemoglobin Concent 31.8 L Red Cell Distribution Width 13.2 Platelet Count 197 Mean Platelet Volume 12.2 H Immature Granulocytes % 0.400 Neutrophils % 90.4 H Lymphocytes % 2.6 L Monocytes % 6.1 Eosinophils % 0.2 Basophils % 0.3 Nucleated Red Blood Cells % 0.0 Immature Granulocytes # 0.060 H Neutrophils # 13.8 H Lymphocytes # 0.4 L Monocytes # 0.9 Eosinophils # 0.0 Basophils # 0.0 Nucleated Red Blood Cells # 0.0 Sodium Level 136 Potassium Level 4.8 Chloride Level 102 Carbon Dioxide Level 24 Anion Gap 10 Blood Urea Nitrogen 73 H Creatinine 1.80 H Est Glomerular Filtrat Rate mL/min 38 L Glucose Level 183 Calcium Level 8.7 Phosphorus Level 1.9 L Magnesium Level 1.5 L Total Bilirubin 0.6 Direct Bilirubin 0.00 Indirect Bilirubin 0.6 Aspartate Amino Transf (AST/SGOT) 26 Alanine Aminotransferase (ALT/SGPT) 27 Alkaline Phosphatase 63 Total Protein 7.3 Albumin 3.5 Bedside Glucose 175 Medications Medication Current Medications Ondansetron HCl (Zofran Inj) 4 mg Q6H PRN IV NAUSEA AND/OR VOMITING Last administered on 06/11/19 08:29; Admin Dose 4 MG; Start 06/08/19 at 10:30 Tamsulosin HCl (Flomax) 0.4 mg QPM PO Last administered on 06/10/19 20:27; Admin Dose 0.4 MG; Start 06/08/19 at 21:00 Apixaban (Eliquis) 5 mg BID PO Last administered on 06/11/19 08:29; Admin Dose 5 MG; Start 06/10/19 at 09:00 Acetaminophen/ Hydrocodone Bitart ([place] (7.5-325)) 1 tab Q6H PRN PO MODERATE PAIN LEVEL 4-6 Last administered on 06/10/19 20:28; Admin Dose 1 TAB; Start 06/10/19 at 11:30 Docusate Sodium (Colace) 250 mg DAILY PO Last administered on 06/11/19 08:29; Admin Dose 250 MG; Start 06/10/19 at 11:30 Metoclopramide HCl (Reglan) 10 mg Q6H PRN IV NAUSEA AND/OR VOMITING Last administered on 06/11/19 00:45; Admin Dose 10 MG; Start 06/11/19 at 01:00 Piperacillin Sod/ Tazobactam Sod 100 ml @ 200 mls/hr Q8 IVPB Last administered on 06/11/19at 10:34; Admin Dose 200 MLS/HR; Start 06/11/19 at 10:00 Polyethylene Glycol (Miralax) 17 gm DAILY PO Last administered on 06/11/19at 10:34; Admin Dose 17 GM; Start 06/11/19 at 10:30 Metoclopramide HCl (Reglan) 10 mg Q6H IV Last administered on 06/11/19at 10:34; Admin Dose 10 MG; Start 06/11/19 at 10:30; Stop 06/13/19 at 10:29 Metoprolol Tartrate (Lopressor) 50 mg BID PO ; Start 06/11/19 at 21:00 Diltiazem HCl (Cardizem Iv) 5 mg Q1H PRN IV HR >120; Start 06/11/19 at 10:30 NILO BERMUDEZ NP Jun 11, 2019 15:36
--- NOTE | 2019-06-11 16:58 | CONS ---
Assessment/Plan Assessment/Plan Assessment/Plan (Daily) 24-year-old male who presented with: 1. Non oliguric Acute kidney injury on top of chronic kidney disease with a baseline creatinine of 1.3 to 1.4. Of note, patient had acute kidney injury with a creatinine of 7, which peaked in September 2018 and it came down to 1.43 on discharge. Etiology of acute renal failure is likely secondary to prerenal volume depletion due to episodes of nausea and vomiting. There is no urinalysis obtained. The patient also has a history of benign prostatic hypertrophy. Currently, the patient has not had any urine output. The CT of the abdomen and pelvis shows bilateral renal cortical atrophy with a history of stones. Plus, the patient could also have underlying acute tubular necrosis with nephrotoxic agents like PASCUAL, ARBs and naproxen, ibuprofen. UA+ hemturia/proteinuria1+pro repeat UA is negative, 2. Hyperkalemia, likely secondary to acute kidney injury. 3. Metabolic acidosis, anion gap. Etiology could be secondary to acute kidney injury. 4. Abdominal pain, nausea, vomiting, rule out gallbladder etiology. 5. 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 6. History of atrial fibrillation. 7. Hypertension, currently normotensive. 8. Morbid obesity. 9. Benign prostatic hypertrophy. 10. History of subtotal colectomy. 11. Leukocytosis. 12. Hypomagnesemia. Plan - Cr is dramatically improved , off fluids - replete Mg and K -monitorUrine output -UA does not have hematuria, 10 WBC and ck 45 - We will hold off on PASCUAL, ARB and any NSAID. - Advance diet per primary - renally dose all meds Consultation Date/Type/Reason Admit Date/Time Jun 08, 2019 at 06:06 Initial Consult Date 06/08/19 Requesting Provider: ALFA RITCHIE Date/Time of Note DATE: 06/11/19 TIME: 16:56 24 HR Interval Summary Free Text/Dictation wbc 15 today clear lquid diet Exam/Review of Systems Exam Vitals Vital Signs Date Temp Pulse Resp B/P (MAP) Pulse Ox O2 O2 Flow FiO2 Time Delivery Rate 06/11/19 98.7 73 18 106/60 98 Room Air 15:22 (75) Intake and Output 06/10/19 06/10/19 06/11/19 1515:00 23:00 07:00 IntakeIntake Total 690 ml 1600 ml 750 ml OutputOutput Total 1025 ml 750 ml 1500 ml BalanceBalance -335 ml 850 ml -750 ml Exam ENERAL: Patient opens eyes, The patient is obese. NECK: Supple. HEART: Irregularly irregular. CHEST: Decreased breath sounds bilaterally. ABDOMEN: Soft, diffuse tender, colostomy with brown drainage. EXTREMITIES: Dry. Trace edema. Moves all extremities. Hyperpigmented lesions on the bilateral lower extremities. Results Result Diagram: 06/11/19 0633 06/11/19 0633 Results 24hrs Laboratory Tests Test 06/11/19 06:33 06/11/19 07:00 06/11/19 09:13 White Blood Count 15.2 #H Red Blood Count 3.60 L Hemoglobin 10.9 L Hematocrit 34.3 L Mean Corpuscular Volume 95.3 Mean Corpuscular Hemoglobin 30.3 Mean Corpuscular Hemoglobin Concent 31.8 L Red Cell Distribution Width 13.2 Platelet Count 197 Mean Platelet Volume 12.2 H Immature Granulocytes % 0.400 Neutrophils % 90.4 H Lymphocytes % 2.6 L Monocytes % 6.1 Eosinophils % 0.2 Basophils % 0.3 Nucleated Red Blood Cells % 0.0 Immature Granulocytes # 0.060 H Neutrophils # 13.8 H Lymphocytes # 0.4 L Monocytes # 0.9 Eosinophils # 0.0 Basophils # 0.0 Nucleated Red Blood Cells # 0.0 Sodium Level 136 Potassium Level 4.8 Chloride Level 102 Carbon Dioxide Level 24 Anion Gap 10 Blood Urea Nitrogen 73 H Creatinine 1.80 H Est Glomerular Filtrat Rate mL/min 38 L Glucose Level 183 Calcium Level 8.7 Phosphorus Level 1.9 L Magnesium Level 1.5 L Total Bilirubin 0.6 Direct Bilirubin 0.00 Indirect Bilirubin 0.6 Aspartate Amino Transf (AST/SGOT) 26 Alanine Aminotransferase (ALT/SGPT) 27 Alkaline Phosphatase 63 Total Protein 7.3 Albumin 3.5 Bedside Glucose 175 Medications Medication Current Medications Ondansetron HCl (Zofran Inj) 4 mg Q6H PRN IV NAUSEA AND/OR VOMITING Last administered on 06/11/19at 08:29; Admin Dose 4 MG; Start 06/08/19 at 10:30 Tamsulosin HCl (Flomax) 0.4 mg QPM PO Last administered on 06/10/19at 20:27; Admin Dose 0.4 MG; Start 06/08/19 at 21:00 Apixaban (Eliquis) 5 mg BID PO Last administered on 06/11/19at 08:29; Admin Dose 5 MG; Start 06/10/19 at 09:00 Acetaminophen/ Hydrocodone Bitart ([place] (7.5-325)) 1 tab Q6H PRN PO MODERATE PAIN LEVEL 4-6 Last administered on 06/10/19at 20:28; Admin Dose 1 TAB; Start 06/10/19 at 11:30 Docusate Sodium (Colace) 250 mg DAILY PO Last administered on 06/11/19at 08:29; Admin Dose 250 MG; Start 06/10/19 at 11:30 Metoclopramide HCl (Reglan) 10 mg Q6H PRN IV NAUSEA AND/OR VOMITING Last administered on 06/11/19at 00:45; Admin Dose 10 MG; Start 06/11/19 at 01:00 Piperacillin Sod/ Tazobactam Sod 100 ml @ 200 mls/hr Q8 IVPB Last administered on 06/11/19at 15:38; Admin Dose 200 MLS/HR; Start 06/11/19 at 10:00 Polyethylene Glycol (Miralax) 17 gm DAILY PO Last administered on 06/11/19at 10:34; Admin Dose 17 GM; Start 06/11/19 at 10:30 Metoclopramide HCl (Reglan) 10 mg Q6H IV Last administered on 06/11/19at 15:37; Admin Dose 10 MG; Start 06/11/19 at 10:30; Stop 06/13/19 at 10:29 Metoprolol Tartrate (Lopressor) 50 mg BID PO ; Start 06/11/19 at 21:00 Diltiazem HCl (Cardizem Iv) 5 mg Q1H PRN IV HR >120; Start 06/11/19 at 10:30 Magnesium Sulfate 50 ml @ 25 mls/hr ONCE ONCE IVPB ; Start 06/11/19 at 17:00; Stop 06/11/19 at 18:59 Sodium Phosphate 15 mmol/Sodium Chloride 255 ml @ 63.75 mls/ hr ONCE ONCE IVPB ; Start 06/11/19 at 19:00; Stop 06/11/19 at 22:59 SARA LANZA MD Jun 11, 2019 16:58
[2019-06-11] MEDS ORDERED: MAGNESIUM SULFATE 2 GM/50 ML 50 ML IVPB ONE (17:00)
[2019-06-11] MEDS ORDERED: SODIUM PHOSPHATE 15 MMOL in SOD CHLORIDE 0.9% 250 ML IVPB ONE (19:00)
[2019-06-11 19:38] VITALS: BP 134/68; PULSE 90; RESP 19
[2019-06-11] MEDS: TAMSULOSIN (SR) 0.4 MG CAP PO SCH (20:36)
[2019-06-11] MEDS: METOPROLOL 50 MG TAB PO SCH (20:36)
[2019-06-11] MEDS: HYDROCODONE/APAP (7.5/325) TAB PO PRN (20:37)
[2019-06-11 23:58] VITALS: BP 109/61; PULSE 85; RESP 19
[2019-06-12] MEDS: ONDANSETRON 4 MG INJ IV PRN ×3 (00:19→20:25)
[2019-06-12] MEDS: PIPER-TAZO 3.375 GM IV (PMX) 100 ML IVPB SCH ×4 (01:54→22:23)
[2019-06-12] MEDS: HYDROCODONE/APAP (7.5/325) TAB PO PRN ×3 (03:06→20:25)
[2019-06-12 04:09] VITALS: BP 125/69; PULSE 97; RESP 20
[2019-06-12] MEDS: METOCLOPRAMIDE 10 MG INJ IV SCH ×4 (04:27→22:23)
[2019-06-12 07:41] VITALS: BP 149/96; PULSE 90; RESP 20
[2019-06-12] MEDS: DOCUSATE SODIUM 250 MG CAP PO SCH (08:32)
[2019-06-12] MEDS: POLYETHYLENE GLYCOL 17 GM PACKET PO SCH (08:32)
[2019-06-12] MEDS: APIXABAN 5 MG TABLET PO SCH ×2 (08:32→20:25)
[2019-06-12] MEDS: METOPROLOL 50 MG TAB PO SCH ×2 (08:36→20:32)
[2019-06-12 10:58] VITALS: BP 113/75; PULSE 81; RESP 20
[2019-06-12 14:56] VITALS: BP 121/56; PULSE 91; RESP 20
--- NOTE | 2019-06-12 16:03 | PN ---
Date/Time of Note Date/Time of Note DATE: 06/12/19 TIME: 15:59 Assessment/Plan Lines/Catheters IV Catheter Type (from Nrs): Peripheral IV Assessment/Plan Chief Complaint/Hosp Course 1. Abdominal pain: ddx: LLQ parastomal hernia, ? intermittent partial obstruction vs. GB (HIDA negative- low likelihood) vs. adhesions vs. other parastomal hernia manual reduction attempted yesterday able to reduce a little bit -sbft> refused by patient -pain mgt -we do not recommend feeding patient until sbft is done 2. Acute on chronic kidney dx -per renal -judicious fluids -renally dose meds -limit nephrotoxins 3. Afib with RVR -rate control -anticoagulation -per cards 4. Leukocytosis: No infectious symptoms -Further work-up if persistent 5. Abnormal UA -frequent bladder emptying/cath care 6.hypertension, dyslipidemia -Highly encouraged weight loss -Medical management 7. Morbid obesity BMI: 48 -diet and exercise optimization -encourage weight loss Thank you. Patient seen and examined in collaboration with Dr. Ziyad Albrecht.; Subjective 24 Hr Interval Summary Abdominal pain improved. + Bowel function per ostomy. Refused small bowel follow-through overnight. No fevers, chills, sob, congested cough, cp, palpitations, [place], dizziness, nausea, vomiting, diarrhea, dysuria. Exam/Review of Systems Vital Signs Vitals Vital Signs Date Temp Pulse Resp B/P (MAP) Pulse Ox O2 O2 Flow FiO2 Time Delivery Rate 06/12/19 97.9 91 20 121/56 95 Room Air 14:56 (77) Intake and Output 06/11/19 06/11/19 06/12/19 1515:00 23:00 07:00 IntakeIntake Total 1500 ml 1190 ml 830 ml OutputOutput Total 900 ml 700 ml 2275 ml BalanceBalance 600 ml 490 ml -1445 ml Exam Free Text/Dictation Constitutional: alert, oriented Psych: nl mood/affect; No anxiety Head: normocephalic, atraumatic Eyes: nl conjunctiva, EOMI, nl lids, nl sclera ENMT: nl external ears & nose, nl lips & teeth, mucosa pink and moist Neck: supple, non-tender; No jvd Respiratory: normal air movement; No congested cough Cardiovascular: nl pulses; No regular rate and rhythm (Atrial fibrillation currently controlled), No edema Gastrointestinal: soft, surgical scars, tender (Parastomal), other (Large pannus), left lower quadrant ostomy: Productive Genitourinary - Male: nl penis, nl scrotum Musculoskeletal: nl gait and stance Extremities: normal pulses Neurological: nl mental status, nl speech, nl strength Skin: nl turgor; No rash or lesions Results Result Diagram: 06/12/19 0551 06/12/19 0551 NILO BERMUDEZ NP Jun 12, 2019 16:03
--- NOTE | 2019-06-12 16:49 | CONS ---
Assessment/Plan Assessment/Plan Hospital Course (Demo Recall) 1. Non oliguric acute kidney injury on top of chronic kidney disease with a baseline creatinine of 1.3 to 1.4. Of note, patient had acute kidney injury with a creatinine of 7, which peaked in September 2018 and it came down to 1.43 on discharge. Etiology of acute renal failure is likely secondary to prerenal volume depletion due to episodes of nausea and vomiting. There is no urinalysis obtained. The patient also has a history of benign prostatic hypertrophy. Currently, the patient has not had any urine output. The CT of the abdomen and pelvis shows bilateral renal cortical atrophy with a history of stones. Plus, the patient could also have underlying acute tubular necrosis with nephrotoxic agents like PASCUAL, ARBs and naproxen, ibuprofen. UA+ hemturia/proteinuria1+pro repeat UA is negative, 2. Hyperkalemia, likely secondary to acute kidney injury, resolved. 3. Metabolic acidosis, anion gap. Etiology could be secondary to acute kidney injury. no repeat ABG 4. Abdominal pain, nausea, vomiting, rule out gallbladder etiology. 5. 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 6. History of atrial fibrillation. 7. Hypertension, currently normotensive. 8. Morbid obesity. 9. Benign prostatic hypertrophy. 10. History of subtotal colectomy with ostomy. 11. Leukocytosis. 12. Hypomagnesemia, resolved. Assessment/Plan (Daily) -normal phosphorus now - Cr is dramatically improved , off fluids -monitor urine output, yesterday 360 ml - We will hold off on PASCUAL, ARB and any NSAID. - renally dose all meds Consultation Date/Type/Reason Admit Date/Time Jun 08, 2019 at 06:06 Initial Consult Date 06/11/19 Type of Consult nephrology Reason for Consultation Dr Calle Requesting Provider: ALFA RITCHIE Date/Time of Note DATE: 06/12/19 TIME: 16:49 24 HR Interval Summary Free Text/Dictation Constitutional: No fever, cough or chills. EYE: No eye disease. No visual problems. denied CARDIOVASCULAR: No chest pain. No tachycardia. No Palpitation. RESPIRATORY: No breathing problems. No COPD or disease of respiration. GASTROINTESTINAL: has colostomy Endocrine: No excessive thirst, No polyuria, No hot intolerance. No cold int olerance. MUSCULO-SKELETAL: had 2 ankles broken NEUROLOGICAL: Alert, oriented in person, place, and situation. No Headache, Confusion. No Seizures. Has problem with balance, difficulties walking. Exam/Review of Systems Exam Vitals Vital Signs Date Temp Pulse Resp B/P (MAP) Pulse Ox O2 O2 Flow FiO2 Time Delivery Rate 06/12/19 97.9 91 20 121/56 95 Room Air 14:56 (77) Intake and Output 06/11/19 06/11/19 06/12/19 1515:00 23:00 07:00 IntakeIntake Total 1500 ml 1190 ml 830 ml OutputOutput Total 900 ml 700 ml 2275 ml BalanceBalance 600 ml 490 ml -1445 ml Exam No acute distress, no events overnight. Eyes: anicteric, EOM's intact, pallor. asymmetry of eyes Nose: no rhinorrhea Neck: supple, no thyromegaly, no carotid bruits Lungs: clear bilaterally, decreased. CVS: regular rate and rhythm, no murmurs Abdomen: soft, bowel sounds present,LUQ colostomy, scars, abdomen deformities Rectal: differed. External genitalia: no lesions. Extremities: trace edema, DP pulses are palpable Neuro: alert and oriented x 3, slow Gait: unable to assess Motor strenght: 5+/5+ Sensory exam: normal Deep tendon reflexes: normal, Babisky reflexes are absent bilaterally Skin: pale. bruising, BLE scars Results Result Diagram: 06/12/19 0551 06/12/19 0551 Results 24hrs Laboratory Tests Test 06/12/19 05:51 White Blood Count 16.3 H Red Blood Count 3.63 L Hemoglobin 10.9 L Hematocrit 34.2 L Mean Corpuscular Volume 94.2 Mean Corpuscular Hemoglobin 30.0 Mean Corpuscular Hemoglobin Concent 31.9 L Red Cell Distribution Width 13.2 Platelet Count 221 Mean Platelet Volume 12.1 H Immature Granulocytes % 0.400 Neutrophils % 78.8 H Lymphocytes % 5.0 L Monocytes % 14.5 H Eosinophils % 0.9 Basophils % 0.4 Nucleated Red Blood Cells % 0.0 Immature Granulocytes # 0.070 H Neutrophils # 12.9 H Lymphocytes # 0.8 Monocytes # 2.4 H Eosinophils # 0.2 Basophils # 0.1 Nucleated Red Blood Cells # 0.0 Sodium Level 139 Potassium Level 4.9 Chloride Level 104 Carbon Dioxide Level 24 Anion Gap 11 Blood Urea Nitrogen 54 H Creatinine 1.67 H Est Glomerular Filtrat Rate mL/min 42 L Glucose Level 148 Calcium Level 9.5 Phosphorus Level 3.5 Magnesium Level 1.9 Medications Medication Current Medications Ondansetron HCl (Zofran Inj) 4 mg Q6H PRN IV NAUSEA AND/OR VOMITING Last administered on 06/12/19 13:47; Admin Dose 4 MG; Start 06/08/19 at 10:30 Tamsulosin HCl (Flomax) 0.4 mg QPM PO Last administered on 06/11/19 20:36; Admin Dose 0.4 MG; Start 06/08/19 at 21:00 Apixaban (Eliquis) 5 mg BID PO Last administered on 06/12/19 08:32; Admin Dose 5 MG; Start 06/10/19 at 09:00 Acetaminophen/ Hydrocodone Bitart ([place] (7.5-325)) 1 tab Q6H PRN PO MODERATE PAIN LEVEL 4-6 Last administered on 06/12/19 13:41; Admin Dose 1 TAB; Start 06/10/19 at 11:30 Docusate Sodium (Colace) 250 mg DAILY PO Last administered on 06/12/19 08:32; Admin Dose 250 MG; Start 06/10/19 at 11:30 Metoclopramide HCl (Reglan) 10 mg Q6H PRN IV NAUSEA AND/OR VOMITING Last administered on 06/11/19 00:45; Admin Dose 10 MG; Start 06/11/19 at 01:00 Piperacillin Sod/ Tazobactam Sod 100 ml @ 200 mls/hr Q8 IVPB Last administered on 06/12/19 13:42; Admin Dose 200 MLS/HR; Start 06/11/19 at 10:00 Polyethylene Glycol (Miralax) 17 gm DAILY PO Last administered on 06/12/19 08:32; Admin Dose 17 GM; Start 06/11/19 at 10:30 Metoclopramide HCl (Reglan) 10 mg Q6H IV Last administered on 06/12/19 15:36; Admin Dose 10 MG; Start 06/11/19 at 10:30; Stop 06/13/19 at 10:29 Metoprolol Tartrate (Lopressor) 50 mg BID PO Last administered on 7/26/19at 08:36; Admin Dose 50 MG; Start 06/11/19 at 21:00 Diltiazem HCl (Cardizem Iv) 5 mg Q1H PRN IV HR >120; Start 06/11/19 at 10:30 TREVOR YANES NP Jun 12, 2019 16:49
--- NOTE | 2019-06-12 18:14 | PN ---
Date/Time of Note Date/Time of Note DATE: 06/12/19 TIME: 18:10 Assessment/Plan VTE Prophylaxis Risk score (from Ns)>0 risk: 8 SCD applied (from Ns): Yes Pharmacological prophylaxis: apixaban Lines/Catheters IV Catheter Type (from [facility]): Peripheral IV Assessment/Plan Hospital Course 64 yo M with hypertension, BPH, dyslipidemia, subtotal colectomy (reportedly due to colitis), colostomy, recurrent small bowel obstruction, chronic kidney disease who presented to the emergency room with a 3-day history of abdominal pain, nausea and vomiting, and is currently managed as follows. 1. Abdominal pain / nausea / vomiting: -improved, refused SBFT for possible occult SB obstruction , wants to advance diet, if he does well can go home tomorrow on full liquids and advance slowly at home 2. Acute on chronic renal failure with metabolic acidosis and uremia: resolved -Patient continues to significantly improve 3. Hyperkalemia -2/2 #2, resolved 4. Chronic atrial fibrillation with transient episodes of rapid right ventricular response -had bradycardia and pauses, likely 2/2 BB therapy, his beta-bernadette therapy was stopped and we are now slowly escalating. -rate currently fairly well controlled on current regimen, continue monitoring on tele 5. History of recurrent colitis status post partial colectomy and colostomy placement without evidence of acute obstruction on CAT scan -stable, fair colostomy output 6. Mild gallbladder distention concerning for possible cholecystitis -negative HIDA, see #1 6. Chronic bilateral renal atrophy with nonobstructing calcifications within both kidneys 7. Morbid obesity 8. Reactive leukocytosis -improved 9. Hypertension improved 10. History of BPH 11. Dyslipidemia 12. Hyperphosphatemia: improving Dispo: -advance diet and plan to dc home tomorrow if he tolerated diet -Further intervention per clinical course -Prophylaxis: Eliquis, Protonix Critical care time today: Greater than 40 minutes, I also spoke with consultants and reviewed bedside imaging Result Diagram: 06/12/19 0551 06/12/19 0551 Results 24hrs Laboratory Tests Test 06/12/19 05:51 White Blood Count 16.3 H Red Blood Count 3.63 L Hemoglobin 10.9 L Hematocrit 34.2 L Mean Corpuscular Volume 94.2 Mean Corpuscular Hemoglobin 30.0 Mean Corpuscular Hemoglobin Concent 31.9 L Red Cell Distribution Width 13.2 Platelet Count 221 Mean Platelet Volume 12.1 H Immature Granulocytes % 0.400 Neutrophils % 78.8 H Lymphocytes % 5.0 L Monocytes % 14.5 H Eosinophils % 0.9 Basophils % 0.4 Nucleated Red Blood Cells % 0.0 Immature Granulocytes # 0.070 H Neutrophils # 12.9 H Lymphocytes # 0.8 Monocytes # 2.4 H Eosinophils # 0.2 Basophils # 0.1 Nucleated Red Blood Cells # 0.0 Sodium Level 139 Potassium Level 4.9 Chloride Level 104 Carbon Dioxide Level 24 Anion Gap 11 Blood Urea Nitrogen 54 H Creatinine 1.67 H Est Glomerular Filtrat Rate mL/min 42 L Glucose Level 148 Calcium Level 9.5 Phosphorus Level 3.5 Magnesium Level 1.9 Exam/Review of Systems Exam Vitals Vital Signs Date Temp Pulse Resp B/P (MAP) Pulse Ox O2 O2 Flow FiO2 Time Delivery Rate 06/12/19 97.9 91 20 121/56 95 Room Air 14:56 (77) Intake and Output 06/11/19 06/11/19 06/12/19 1515:00 23:00 07:00 IntakeIntake Total 1500 ml 1190 ml 830 ml OutputOutput Total 900 ml 700 ml 2275 ml BalanceBalance 600 ml 490 ml -1445 ml Results Results 24hrs Laboratory Tests Test 06/12/19 05:51 White Blood Count 16.3 H Red Blood Count 3.63 L Hemoglobin 10.9 L Hematocrit 34.2 L Mean Corpuscular Volume 94.2 Mean Corpuscular Hemoglobin 30.0 Mean Corpuscular Hemoglobin Concent 31.9 L Red Cell Distribution Width 13.2 Platelet Count 221 Mean Platelet Volume 12.1 H Immature Granulocytes % 0.400 Neutrophils % 78.8 H Lymphocytes % 5.0 L Monocytes % 14.5 H Eosinophils % 0.9 Basophils % 0.4 Nucleated Red Blood Cells % 0.0 Immature Granulocytes # 0.070 H Neutrophils # 12.9 H Lymphocytes # 0.8 Monocytes # 2.4 H Eosinophils # 0.2 Basophils # 0.1 Nucleated Red Blood Cells # 0.0 Sodium Level 139 Potassium Level 4.9 Chloride Level 104 Carbon Dioxide Level 24 Anion Gap 11 Blood Urea Nitrogen 54 H Creatinine 1.67 H Est Glomerular Filtrat Rate mL/min 42 L Glucose Level 148 Calcium Level 9.5 Phosphorus Level 3.5 Magnesium Level 1.9 Medications Medication Current Medications Ondansetron HCl (Zofran Inj) 4 mg Q6H PRN IV NAUSEA AND/OR VOMITING Last administered on 06/12/19 13:47; Admin Dose 4 MG; Start 06/08/19 at 10:30 Tamsulosin HCl (Flomax) 0.4 mg QPM PO Last administered on 06/11/19 20:36; Admin Dose 0.4 MG; Start 06/08/19 at 21:00 Apixaban (Eliquis) 5 mg BID PO Last administered on 06/12/19 08:32; Admin Dose 5 MG; Start 06/10/19 at 09:00 Acetaminophen/ Hydrocodone Bitart ([place] (7.5-325)) 1 tab Q6H PRN PO MODERATE PAIN LEVEL 4-6 Last administered on 06/12/19 13:41; Admin Dose 1 TAB; Start 06/10/19 at 11:30 Docusate Sodium (Colace) 250 mg DAILY PO Last administered on 06/12/19 08:32; Admin Dose 250 MG; Start 06/10/19 at 11:30 Metoclopramide HCl (Reglan) 10 mg Q6H PRN IV NAUSEA AND/OR VOMITING Last administered on 06/11/19 00:45; Admin Dose 10 MG; Start 06/11/19 at 01:00 Piperacillin Sod/ Tazobactam Sod 100 ml @ 200 mls/hr Q8 IVPB Last administered on 06/12/19 13:42; Admin Dose 200 MLS/HR; Start 06/11/19 at 10:00 Polyethylene Glycol (Miralax) 17 gm DAILY PO Last administered on 06/12/19 08:32; Admin Dose 17 GM; Start 06/11/19 at 10:30 Metoclopramide HCl (Reglan) 10 mg Q6H IV Last administered on 06/12/19 15:36; Admin Dose 10 MG; Start 06/11/19 at 10:30; Stop 06/13/19 at 10:29 Metoprolol Tartrate (Lopressor) 50 mg BID PO Last administered on 06/12/19 08:36; Admin Dose 50 MG; Start 06/11/19 at 21:00 Diltiazem HCl (Cardizem Iv) 5 mg Q1H PRN IV HR >120; Start 06/11/19 at 10:30 ALFA RITCHIE Jun 12, 2019 18:14
--- NOTE | 2019-06-12 18:56 | CONS ---
Consult Date/Type/Reason Admit Date/Time Jun 08, 2019 at 06:06 Initial Consult Date 06/08/19 Type of Consultation: cv Requesting Provider: ALFA RITCHIE Date/Time of Note DATE: 06/12/19 TIME: 18:54 Subjective Interventional cardiology follow-up progress note Subjective: Case discussed with staff telemetry was reviewed patient has remained in atrial fibrillation heart is under fair control now but is intermittently very elevated. No slow ventricular response is noted No chest pain or pressure no palpitation. No nausea vomiting Objective: General: Obese the obese gentleman in no acute distress HEENT: NC/AT. pupils are equal. round. NECK: no stridor. CV: Irregularly irregular systolic murmur; no gallop or rubs. PULM: no wheezing or rhonchi. GI: SOFT, NT, ND, no rebound or guarding Extremity: trace B/L LE edema. no clubbing. neuro: awake and alert, OX3. Psych: calm t rectal: deferred EKG was personally with atrial fibrillation with slow ventricular response nonspecific T wave abnormalities Abdominal CT has shown: 1. Gallbladder mildly distended at 6 cm transverse diameter. Appearance raises possibility of cholecystitis, consider further evaluation with ultrasound or HIDA scan if clinically warranted. 2. Chronic postsurgical changes related to subtotal colectomy with left lower quadrant ostomy. The large peristomal hernia which contains a nondilated segment of the small bowel no evidence for acute obstruction. 3. Bilateral renal cortical atrophy. Punctate non-obstructing calcifications within both kidneys. 4. Small fat containing bilateral inguinal hernias. 5. Chronic compression deformity of the L1 vertebral body. Echocardiogram was personally reviewed shows: Normal left ventricular systolic function. Normal left ventricular cavity size. Left ventricular wall thickness upper limits of normal. Ejection fraction is visually estimated at 60 %. Tissue Doppler/Mitral Doppler indices are indeterminate in this study due to the presence of atrial fibrillation. There is mild enlargement of left atrium. Mitral valve is not well visualized. Mild mitral leaflet calcification. Mild mitral annular calcification. Trace mitral regurgitation. No significant aortic stenosis or insufficiency. Aortic valve not well visualized. Aortic cusps appear mildly calcified. Normal appearance of the tricuspid valve. Unable to obtain RVSP due to minimal presence of tricuspid regurgitation. Normal size and normal respiratory collapse consistent with normal right atrial pressure. Trivial pericardial effusion. Objective Vitals Vital Signs Date Temp Pulse Resp B/P (MAP) Pulse Ox O2 O2 Flow FiO2 Time Delivery Rate 06/12/19 97.9 91 20 121/56 95 Room Air 14:56 (77) Intake and Output 06/11/19 06/11/19 06/12/19 1515:00 23:00 07:00 IntakeIntake Total 1500 ml 1190 ml 830 ml OutputOutput Total 900 ml 700 ml 2275 ml BalanceBalance 600 ml 490 ml -1445 ml Results/Medications Result Diagram: 06/12/19 0551 06/12/19 0551 Results 24 hrs Laboratory Tests Test 06/12/19 05:51 White Blood Count 16.3 H Red Blood Count 3.63 L Hemoglobin 10.9 L Hematocrit 34.2 L Mean Corpuscular Volume 94.2 Mean Corpuscular Hemoglobin 30.0 Mean Corpuscular Hemoglobin Concent 31.9 L Red Cell Distribution Width 13.2 Platelet Count 221 Mean Platelet Volume 12.1 H Immature Granulocytes % 0.400 Neutrophils % 78.8 H Lymphocytes % 5.0 L Monocytes % 14.5 H Eosinophils % 0.9 Basophils % 0.4 Nucleated Red Blood Cells % 0.0 Immature Granulocytes # 0.070 H Neutrophils # 12.9 H Lymphocytes # 0.8 Monocytes # 2.4 H Eosinophils # 0.2 Basophils # 0.1 Nucleated Red Blood Cells # 0.0 Sodium Level 139 Potassium Level 4.9 Chloride Level 104 Carbon Dioxide Level 24 Anion Gap 11 Blood Urea Nitrogen 54 H Creatinine 1.67 H Est Glomerular Filtrat Rate mL/min 42 L Glucose Level 148 Calcium Level 9.5 Phosphorus Level 3.5 Magnesium Level 1.9 Home Meds Active Scripts Apixaban* (Eliquis*) 5 Mg Tablet, 5 MG PO BID, #60 TAB 3 Refills Prov:ERMAALFA 06/10/19 Ondansetron Hcl* (Zofran*) 4 Mg Tablet, 4 MG PO Q8H PRN for NAUSEA AND/OR VOMITING, #30 TAB Prov:VIRGIL MAC MD 06/08/19 Naproxen* (Naprosyn*) 500 Mg Tablet, 500 MG PO BID PRN for PAIN AND/OR INFLAMMATION, #30 TAB Prov:VIRGIL MAC MD 06/08/19 Fluticasone Propionate (Flonase Allergy Relief) 9.9 Ml Mears.susp, 1 SPRAY NASAL BID for 28 Days, #1 BOTTLE TO EACH NOSTRIL Prov:UMA NICOLAS PA-C 04/04/18 Tamsulosin Hcl* (Flomax*) 0.4 Mg Cap.er.24h, 0.4 MG PO QPM, #30 CAP Prov:SUE NUNEZELLAAria MorrisToyn SHERMAN 07/18/17 Reported Medications Lisinopril* (Lisinopril*) 5 Mg Tablet, 1 TAB ORAL DAILY 06/08/19 Hydroxyzine Hcl* (Atarax*) 25 Mg Tab, 1 TAB ORAL TID PRN for ALLERGIC REACTION 06/08/19 Pravastatin Sodium (Pravastatin Sodium) 20 Mg Tablet, 1 TAB ORAL QHS 06/08/19 Furosemide* (Furosemide*) 20 Mg Tablet, 1 TAB ORAL DAILY 06/08/19 Tramadol HCl (Tramadol HCl) 50 Mg Tablet, 1 TAB ORAL TID PRN for PAIN LEVEL 6-10 06/08/19 Zolpidem Tartrate* (Zolpidem Tartrate*) 5 Mg Tablet, 1 TAB ORAL QHS PRN for INSOMNIA 06/08/19 Trazodone Hcl* (Trazodone Hcl*) 50 Mg Tablet, 50 MG PO QHS, #90 TAB 10/08/18 Metoprolol Tartrate* (Lopressor*) 50 Mg Tab, 50 MG PO BID, #60 TAB 10/08/18 Ibuprofen* (Ibuprofen*) 400 Mg Tablet, 400 MG PO Q6H PRN for PAIN, TAB 07/18/17 Pregabalin* (Lyrica*) 25 Mg Capsule, 25 MG PO DAILY, CAP 07/18/17 Discontinued Reported Medications Lisinopril* (Lisinopril*) 10 Mg Tablet, 10 MG PO DAILY, #30 TAB 10/08/18 Pravastatin Sodium* (Pravastatin Sodium*) 10 Mg Tablet, 10 MG PO HS, TAB 08/23/15 Medications Current Medications Ondansetron HCl (Zofran Inj) 4 mg Q6H PRN IV NAUSEA AND/OR VOMITING Last administered on 06/12/19at 13:47; Admin Dose 4 MG; Start 06/08/19 at 10:30 Tamsulosin HCl (Flomax) 0.4 mg QPM PO Last administered on 06/11/19at 20:36; Admin Dose 0.4 MG; Start 06/08/19 at 21:00 Apixaban (Eliquis) 5 mg BID PO Last administered on 06/12/19 08:32; Admin Dose 5 MG; Start 06/10/19 at 09:00 Acetaminophen/ Hydrocodone Bitart ([place] (7.5-325)) 1 tab Q6H PRN PO MODERATE PAIN LEVEL 4-6 Last administered on 06/12/19 13:41; Admin Dose 1 TAB; Start at 11:30 Docusate Sodium (Colace) 250 mg DAILY PO Last administered on 06/12/19 08:32; Admin Dose 250 MG; Start 06/10/19 at 11:30 Metoclopramide HCl (Reglan) 10 mg Q6H PRN IV NAUSEA AND/OR VOMITING Last administered on 06/11/19 00:45; Admin Dose 10 MG; Start 06/11/19 at 01:00 Piperacillin Sod/ Tazobactam Sod 100 ml @ 200 mls/hr Q8 IVPB Last administered on 06/12/19 13:42; Admin Dose 200 MLS/HR; Start 06/11/19 at 10:00 Polyethylene Glycol (Miralax) 17 gm DAILY PO Last administered on 06/12/19 08:32; Admin Dose 17 GM; Start 06/11/19 at 10:30 Metoclopramide HCl (Reglan) 10 mg Q6H IV Last administered on 06/12/19 15:36; Admin Dose 10 MG; Start 06/11/19 at 10:30; Stop 06/13/19 at 10:29 Metoprolol Tartrate (Lopressor) 50 mg BID PO Last administered on 06/12/19 08:36; Admin Dose 50 MG; Start 06/11/19 at 21:00 Diltiazem HCl (Cardizem Iv) 5 mg Q1H PRN IV HR >120; Start 06/11/19 at 10:30 Assessment/Plan Hospital Course (Demo Recall) Atrial fibrillation with tachy/bradycardia Acute renal failure: Slowly improving Dehydration History of hypertension morbid obesity Status post colostomy Obstructive sleep apnea ? Cholecystitis Recommendations: We will inc beta-bernadette to 3 times daily Telemetry monitoring for now GI work-up and treatment as per internal medicine IV fluid/ Management as per renal consultants. He is agreeable to taking Eliquis. cont diane DC planning when okay from renal standpoint Thank you for his referral. We will continue to follow along with you ADRIANNA GARCIA MD [facility] ADRIANNA GARCIA MD Jun 12, 2019 18:56
[2019-06-12 19:35] VITALS: BP 129/63; PULSE 98; RESP 19
[2019-06-12] MEDS: TAMSULOSIN (SR) 0.4 MG CAP PO SCH (20:25)
[2019-06-13] VITALS (7 sets, daily range): BP systolic 96–156; BP diastolic 62–74; PULSE 68–98; RESP 19–20
[2019-06-13] MEDS: METOCLOPRAMIDE 10 MG INJ IV SCH (04:30)
[2019-06-13] MEDS: PIPER-TAZO 3.375 GM IV (PMX) 100 ML IVPB SCH ×2 (05:56→13:50)
[2019-06-13] MEDS: HYDROCODONE/APAP (7.5/325) TAB PO PRN ×2 (06:15→12:36)
[2019-06-13] MEDS: APIXABAN 5 MG TABLET PO SCH ×2 (08:25→21:04)
[2019-06-13] MEDS: METOPROLOL 50 MG TAB PO SCH ×3 (08:26→21:05)
[2019-06-13] MEDS: DOCUSATE SODIUM 250 MG CAP PO SCH (08:27)
[2019-06-13] MEDS: POLYETHYLENE GLYCOL 17 GM PACKET PO SCH (08:28)
--- NOTE | 2019-06-13 15:11 | CONS ---
Assessment/Plan Assessment/Plan Hospital Course (Demo Recall) 1. Non oliguric acute kidney injury on top of chronic kidney disease with a baseline creatinine of 1.3 to 1.4. Of note, patient had acute kidney injury with a creatinine of 7, which peaked in September 2018 and it came down to 1.43 on discharge. Etiology of acute renal failure is likely secondary to prerenal volume depletion due to episodes of nausea and vomiting. There is no urinalysis obtained. The patient also has a history of benign prostatic hypertrophy. Currently, the patient has not had any urine output. The CT of the abdomen and pelvis shows bilateral renal cortical atrophy with a history of stones. Plus, the patient could also have underlying acute tubular necrosis with nephrotoxic agents like PASCUAL, ARBs and naproxen, ibuprofen. UA+ hemturia/proteinuria1+pro repeat UA is negative, 2. Hyperkalemia, likely secondary to acute kidney injury, resolved. 3. Metabolic acidosis, anion gap. Etiology could be secondary to acute kidney injury. no repeat ABG 4. Abdominal pain, nausea, vomiting, rule out gallbladder etiology. 5. 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 6. History of atrial fibrillation. 7. Hypertension, currently normotensive. 8. Morbid obesity. 9. Benign prostatic hypertrophy. 10. History of subtotal colectomy with ostomy. 11. Leukocytosis. 12. Hypomagnesemia, resolved. Assessment/Plan (Daily) -creatinine increased insignificantly -c/w current care -avoid nephrotoxic drugs Consultation Date/Type/Reason Admit Date/Time Jun 08, 2019 at 06:06 Initial Consult Date 06/11/19 Type of Consult nephrology Requesting Provider: ALFA RITCHIE Date/Time of Note DATE: 06/13/19 TIME: 15:11 24 HR Interval Summary Free Text/Dictation started on soft food Constitutional: no complaints, improved Exam/Review of Systems Exam Vitals Vital Signs Date Temp Pulse Resp B/P (MAP) Pulse Ox O2 O2 Flow FiO2 Time Delivery Rate 06/13/19 98.3 68 20 106/66 93 Room Air 11:49 (79) Intake and Output 06/12/19 06/12/19 06/13/19 1515:00 23:00 07:00 IntakeIntake Total 1040 ml 720 ml 340 ml OutputOutput Total 2000 ml 1840 ml 600 ml BalanceBalance -960 ml -1120 ml -260 ml Exam obese Constitutional: alert, oriented Psych: no complaints Head: normocephalic Eyes: nl conjunctiva, other (right eye strabismus) ENMT: nl external ears & nose, nl lips & teeth Neck: supple, jvd; No non-tender, No bruits, No masses, No thyromegaly, No nuchal rigidity, No other Respiratory: normal air movement, diminished breath sounds Gastrointestinal: soft, rebound or guarding, surgical scars, other (colostomy); No nl liver, spleen, No non-tender, No ascites, No bowel sounds, No distended, No firm, No hepatomegaly, No mass, No splenomegaly, No tender Genitourinary - Male: CVA tenderness; No nl penis, No nl scrotum, No discharge, No other Extremities: normal pulses, edema (trace); No calf tenderness, No cyanosis, No clubbing, No pitting pedal edema, No palpable cord, No tenderness, No other Skin: rash or lesions; No nl turgor, No diaphoresis, No ecchymosis, No laceration, No puncture, No other Results Result Diagram: 06/13/19 0604 06/13/19 0604 Results 24hrs Laboratory Tests Test 06/13/19 06:04 White Blood Count 11.7 #H Red Blood Count 3.41 L Hemoglobin 10.2 L Hematocrit 31.5 L Mean Corpuscular Volume 92.4 Mean Corpuscular Hemoglobin 29.9 Mean Corpuscular Hemoglobin Concent 32.4 Red Cell Distribution Width 13.2 Platelet Count 236 Mean Platelet Volume 11.9 H Immature Granulocytes % 0.500 H Neutrophils % 71.7 Lymphocytes % 7.6 L Monocytes % 17.1 H Eosinophils % 2.6 Basophils % 0.5 Nucleated Red Blood Cells % 0.0 Immature Granulocytes # 0.060 H Neutrophils # 8.4 H Lymphocytes # 0.9 Monocytes # 2.0 H Eosinophils # 0.3 Basophils # 0.1 Nucleated Red Blood Cells # 0.0 Sodium Level 135 Potassium Level 4.7 Chloride Level 97 Carbon Dioxide Level 31 Anion Gap 7 Blood Urea Nitrogen 44 H Creatinine 1.73 H Est Glomerular Filtrat Rate mL/min 40 L Glucose Level 134 Calcium Level 9.6 Medications Medication Current Medications Ondansetron HCl (Zofran Inj) 4 mg Q6H PRN IV NAUSEA AND/OR VOMITING Last administered on 06/12/19 20:25; Admin Dose 4 MG; Start 06/08/19 at 10:30 Tamsulosin HCl (Flomax) 0.4 mg QPM PO Last administered on 06/12/19 20:25; Admin Dose 0.4 MG; Start 06/08/19 at 21:00 Apixaban (Eliquis) 5 mg BID PO Last administered on 06/13/19 08:25; Admin Dose 5 MG; Start 06/10/19 at 09:00 Acetaminophen/ Hydrocodone Bitart ([place] (7.5-325)) 1 tab Q6H PRN PO MODERATE PAIN LEVEL 4-6 Last administered on 06/13/19 12:36; Admin Dose 1 TAB; Start 06/10/19 at 11:30 Docusate Sodium (Colace) 250 mg DAILY PO Last administered on 06/12/19 08:32; Admin Dose 250 MG; Start 06/10/19 at 11:30 Metoclopramide HCl (Reglan) 10 mg Q6H PRN IV NAUSEA AND/OR VOMITING Last administered on 06/11/19 00:45; Admin Dose 10 MG; Start 06/11/19 at 01:00 Piperacillin Sod/ Tazobactam Sod 100 ml @ 200 mls/hr Q8 IVPB Last administered on 06/13/19 13:50; Admin Dose 200 MLS/HR; Start 06/11/19 at 10:00 Polyethylene Glycol (Miralax) 17 gm DAILY PO Last administered on 06/12/19 08:32; Admin Dose 17 GM; Start 06/11/19 at 10:30 Diltiazem HCl (Cardizem Iv) 5 mg Q1H PRN IV HR >120; Start 06/11/19 at 10:30 Metoprolol Tartrate (Lopressor) 50 mg TID PO Last administered on 06/13/19 13:50; Admin Dose 50 MG; Start 06/12/19 at 21:00 TREVOR YANES NP Jun 13, 2019 15:11
--- NOTE | 2019-06-13 15:56 | CONS ---
Consult Date/Type/Reason Admit Date/Time Jun 08, 2019 at 06:06 Initial Consult Date 06/08/19 Type of Consultation: cv Requesting Provider: ALFA RITCHEI Date/Time of Note DATE: 06/13/19 TIME: 15:55 Subjective Interventional cardiology follow-up progress note Subjective: Case discussed with staff telemetry was reviewed patient has remained in atrial fibrillation heart is under good control now and is rarely very elevated. No slow ventricular response is noted No chest pain or pressure no palpitation. No nausea vomiting Objective: General: Obese the obese gentleman in no acute distress HEENT: NC/AT. pupils are equal. round. NECK: no stridor. CV: Irregularly irregular systolic murmur; no gallop or rubs. PULM: no wheezing or rhonchi. GI: SOFT, NT, ND, no rebound or guarding Extremity: trace B/L LE edema. no clubbing. neuro: awake and alert, OX3. Psych: calm t rectal: deferred EKG was personally with atrial fibrillation with slow ventricular response nonspecific T wave abnormalities Abdominal CT has shown: 1. Gallbladder mildly distended at 6 cm transverse diameter. Appearance raises possibility of cholecystitis, consider further evaluation with ultrasound or HIDA scan if clinically warranted. 2. Chronic postsurgical changes related to subtotal colectomy with left lower quadrant ostomy. The large peristomal hernia which contains a nondilated segment of the small bowel no evidence for acute obstruction. 3. Bilateral renal cortical atrophy. Punctate non-obstructing calcifications within both kidneys. 4. Small fat containing bilateral inguinal hernias. 5. Chronic compression deformity of the L1 vertebral body. Echocardiogram was personally reviewed shows: Normal left ventricular systolic function. Normal left ventricular cavity size. Left ventricular wall thickness upper limits of normal. Ejection fraction is visually estimated at 60 %. Tissue Doppler/Mitral Doppler indices are indeterminate in this study due to the presence of atrial fibrillation. There is mild enlargement of left atrium. Mitral valve is not well visualized. Mild mitral leaflet calcification. Mild mitral annular calcification. Trace mitral regurgitation. No significant aortic stenosis or insufficiency. Aortic valve not well visualized. Aortic cusps appear mildly calcified. Normal appearance of the tricuspid valve. Unable to obtain RVSP due to minimal presence of tricuspid regurgitation. Normal size and normal respiratory collapse consistent with normal right atrial pressure. Trivial pericardial effusion. Objective Vitals Vital Signs Date Temp Pulse Resp B/P (MAP) Pulse Ox O2 O2 Flow FiO2 Time Delivery Rate 06/13/19 98.8 94 20 115/68 100 Room Air 15:44 (84) Intake and Output 06/12/19 06/12/19 06/13/19 1515:00 23:00 07:00 IntakeIntake Total 1040 ml 720 ml 340 ml OutputOutput Total 2000 ml 1840 ml 600 ml BalanceBalance -960 ml -1120 ml -260 ml Results/Medications Result Diagram: 06/13/19 0604 06/13/19 0604 Results 24 hrs Laboratory Tests Test 06/13/19 06:04 White Blood Count 11.7 #H Red Blood Count 3.41 L Hemoglobin 10.2 L Hematocrit 31.5 L Mean Corpuscular Volume 92.4 Mean Corpuscular Hemoglobin 29.9 Mean Corpuscular Hemoglobin Concent 32.4 Red Cell Distribution Width 13.2 Platelet Count 236 Mean Platelet Volume 11.9 H Immature Granulocytes % 0.500 H Neutrophils % 71.7 Lymphocytes % 7.6 L Monocytes % 17.1 H Eosinophils % 2.6 Basophils % 0.5 Nucleated Red Blood Cells % 0.0 Immature Granulocytes # 0.060 H Neutrophils # 8.4 H Lymphocytes # 0.9 Monocytes # 2.0 H Eosinophils # 0.3 Basophils # 0.1 Nucleated Red Blood Cells # 0.0 Sodium Level 135 Potassium Level 4.7 Chloride Level 97 Carbon Dioxide Level 31 Anion Gap 7 Blood Urea Nitrogen 44 H Creatinine 1.73 H Est Glomerular Filtrat Rate mL/min 40 L Glucose Level 134 Calcium Level 9.6 Home Meds Active Scripts Apixaban* (Eliquis*) 5 Mg Tablet, 5 MG PO BID, #60 TAB 3 Refills Prov:ALFA RITCHIE 06/10/19 Ondansetron Hcl* (Zofran*) 4 Mg Tablet, 4 MG PO Q8H PRN for NAUSEA AND/OR VOMITING, #30 TAB Prov:VIRGIL MAC MD 06/08/19 Naproxen* (Naprosyn*) 500 Mg Tablet, 500 MG PO BID PRN for PAIN AND/OR INFLAMMATION, #30 TAB Prov:VIRGIL MAC MD 06/08/19 Fluticasone Propionate (Flonase Allergy Relief) 9.9 Ml [place].susp, 1 SPRAY NASAL BID for 28 Days, #1 BOTTLE TO EACH NOSTRIL Prov:UMA NICOLAS PA-C 04/04/18 Tamsulosin Hcl* (Flomax*) 0.4 Mg Cap.er.24h, 0.4 MG PO QPM, #30 CAP Prov:HITESH NUNEZANDREIAria MorrisTony SHERMAN 07/18/17 Reported Medications Lisinopril* (Lisinopril*) 5 Mg Tablet, 1 TAB ORAL DAILY 06/08/19 Hydroxyzine Hcl* (Atarax*) 25 Mg Tab, 1 TAB ORAL TID PRN for ALLERGIC REACTION 06/08/19 Pravastatin Sodium (Pravastatin Sodium) 20 Mg Tablet, 1 TAB ORAL QHS 06/08/19 Furosemide* (Furosemide*) 20 Mg Tablet, 1 TAB ORAL DAILY 06/08/19 Tramadol HCl (Tramadol HCl) 50 Mg Tablet, 1 TAB ORAL TID PRN for PAIN LEVEL 6-10 06/08/19 Zolpidem Tartrate* (Zolpidem Tartrate*) 5 Mg Tablet, 1 TAB ORAL QHS PRN for INSOMNIA 06/08/19 Trazodone Hcl* (Trazodone Hcl*) 50 Mg Tablet, 50 MG PO QHS, #90 TAB 10/08/18 Metoprolol Tartrate* (Lopressor*) 50 Mg Tab, 50 MG PO BID, #60 TAB 10/08/18 Ibuprofen* (Ibuprofen*) 400 Mg Tablet, 400 MG PO Q6H PRN for PAIN, TAB 07/18/17 Pregabalin* (Lyrica*) 25 Mg Capsule, 25 MG PO DAILY, CAP 07/18/17 Discontinued Reported Medications Lisinopril* (Lisinopril*) 10 Mg Tablet, 10 MG PO DAILY, #30 TAB 10/08/18 Pravastatin Sodium* (Pravastatin Sodium*) 10 Mg Tablet, 10 MG PO HS, TAB 08/23/15 Medications Current Medications Ondansetron HCl (Zofran Inj) 4 mg Q6H PRN IV NAUSEA AND/OR VOMITING Last administered on 06/12/19at 20:25; Admin Dose 4 MG; Start 06/08/19 at 10:30 Tamsulosin HCl (Flomax) 0.4 mg QPM PO Last administered on 06/12/19at 20:25; Admin Dose 0.4 MG; Start 06/08/19 at 21:00 Apixaban (Eliquis) 5 mg BID PO Last administered on 06/13/19 08:25; Admin Dose 5 MG; Start 06/10/19 at 09:00 Acetaminophen/ Hydrocodone Bitart ([place] (7.5-325)) 1 tab Q6H PRN PO MODERATE PAIN LEVEL 4-6 Last administered on 06/13/19 12:36; Admin Dose 1 TAB; Start 06/10/19 at 11:30 Docusate Sodium (Colace) 250 mg DAILY PO Last administered on 06/12/19 08:32; Admin Dose 250 MG; Start 06/10/19 at 11:30 Metoclopramide HCl (Reglan) 10 mg Q6H PRN IV NAUSEA AND/OR VOMITING Last administered on 06/11/19 00:45; Admin Dose 10 MG; Start 06/11/19 at 01:00 Piperacillin Sod/ Tazobactam Sod 100 ml @ 200 mls/hr Q8 IVPB Last administered on 06/13/19 13:50; Admin Dose 200 MLS/HR; Start 06/11/19 at 10:00 Polyethylene Glycol (Miralax) 17 gm DAILY PO Last administered on 06/12/19 08:32; Admin Dose 17 GM; Start 06/11/19 at 10:30 Diltiazem HCl (Cardizem Iv) 5 mg Q1H PRN IV HR >120; Start 06/11/19 at 10:30 Metoprolol Tartrate (Lopressor) 50 mg TID PO Last administered on 06/13/19 13:50; Admin Dose 50 MG; Start 06/12/19 at 21:00 Assessment/Plan Hospital Course (Demo Recall) Atrial fibrillation with tachy/bradycardia Acute renal failure: Slowly improving Dehydration History of hypertension morbid obesity Status post colostomy Obstructive sleep apnea ? Cholecystitis Recommendations: We will cont beta-bernadette to 3 times daily Telemetry monitoring for now GI work-up and treatment as per internal medicine IV fluid/ Management as per renal consultants. He is agreeable to taking Eliquis. cont eliquis DC planning when okay from renal standpoint Thank you for his referral. We will continue to follow along with you ADRIANNA GARCIA MD [facility] ADRIANNA GARCIA MD Jun 13, 2019 15:56
--- NOTE | 2019-06-13 16:39 | PN ---
Date/Time of Note Date/Time of Note DATE: 06/13/19 TIME: 16:33 Assessment/Plan VTE Prophylaxis Risk score (from Ns)>0 risk: 5 SCD applied (from Ns): No SCD contraindicated: low risk/ambulating Pharmacological prophylaxis: apixaban Lines/Catheters IV C[facility]ter [facility]from [facility] Saline Lock Assessment/Plan Hospital Course Assessment and plan 1. Bowel obstruction vs ileus, refused sbft. cant advance diet till sbft done 2. H/o IBD? 3. Subtotal colectomy & Colostomy status- ucla 4. A fib; stable 5. SHS; agrees to eliquis 6. JACKSON 7. HTN 8. DL 9. Subclinical hypothyroidism 10. BPH 11. Trivial Pericardial Effusion 12. P tobacco 13. Underlying psychosis? S: Does not state of any injury or stress. No abdominal pain. Minimal flatus. Refuses small bowel series and the options were discussed with the patient. I also discussed the likelihood of him returning in worse shape the next time this cycle happens. States he is tolerating clears. O: Vitals stable Physical exam No pallor icterus Regular no mrg Clear Bs dimin, nt, obese, scars, colostomy No edema Result Diagram: 06/13/19 0604 06/13/19 0604 Results 24hrs Laboratory Tests Test 06/13/19 06:04 White Blood Count 11.7 #H Red Blood Count 3.41 L Hemoglobin 10.2 L Hematocrit 31.5 L Mean Corpuscular Volume 92.4 Mean Corpuscular Hemoglobin 29.9 Mean Corpuscular Hemoglobin Concent 32.4 Red Cell Distribution Width 13.2 Platelet Count 236 Mean Platelet Volume 11.9 H Immature Granulocytes % 0.500 H Neutrophils % 71.7 Lymphocytes % 7.6 L Monocytes % 17.1 H Eosinophils % 2.6 Basophils % 0.5 Nucleated Red Blood Cells % 0.0 Immature Granulocytes # 0.060 H Neutrophils # 8.4 H Lymphocytes # 0.9 Monocytes # 2.0 H Eosinophils # 0.3 Basophils # 0.1 Nucleated Red Blood Cells # 0.0 Sodium Level 135 Potassium Level 4.7 Chloride Level 97 Carbon Dioxide Level 31 Anion Gap 7 Blood Urea Nitrogen 44 H Creatinine 1.73 H Est Glomerular Filtrat Rate mL/min 40 L Glucose Level 134 Calcium Level 9.6 Exam/Review of Systems Exam Vitals Vital Signs Date Temp Pulse Resp B/P (MAP) Pulse Ox O2 O2 Flow FiO2 Time Delivery Rate 06/13/19 98.8 94 20 115/68 100 Room Air 15:44 (84) Intake and Output 06/12/19 06/12/19 06/13/19 1515:00 23:00 07:00 IntakeIntake Total 1040 ml 720 ml 340 ml OutputOutput Total 2000 ml 1840 ml 600 ml BalanceBalance -960 ml -1120 ml -260 ml Results Results 24hrs Laboratory Tests Test 06/13/19 06:04 White Blood Count 11.7 #H Red Blood Count 3.41 L Hemoglobin 10.2 L Hematocrit 31.5 L Mean Corpuscular Volume 92.4 Mean Corpuscular Hemoglobin 29.9 Mean Corpuscular Hemoglobin Concent 32.4 Red Cell Distribution Width 13.2 Platelet Count 236 Mean Platelet Volume 11.9 H Immature Granulocytes % 0.500 H Neutrophils % 71.7 Lymphocytes % 7.6 L Monocytes % 17.1 H Eosinophils % 2.6 Basophils % 0.5 Nucleated Red Blood Cells % 0.0 Immature Granulocytes # 0.060 H Neutrophils # 8.4 H Lymphocytes # 0.9 Monocytes # 2.0 H Eosinophils # 0.3 Basophils # 0.1 Nucleated Red Blood Cells # 0.0 Sodium Level 135 Potassium Level 4.7 Chloride Level 97 Carbon Dioxide Level 31 Anion Gap 7 Blood Urea Nitrogen 44 H Creatinine 1.73 H Est Glomerular Filtrat Rate mL/min 40 L Glucose Level 134 Calcium Level 9.6 Medications Medication Current Medications Ondansetron HCl (Zofran Inj) 4 mg Q6H PRN IV NAUSEA AND/OR VOMITING Last administered on 06/12/19at 20:25; Admin Dose 4 MG; Start 06/08/19 at 10:30 Tamsulosin HCl (Flomax) 0.4 mg QPM PO Last administered on 06/12/19at 20:25; Admin Dose 0.4 MG; Start 06/08/19 at 21:00 Apixaban (Eliquis) 5 mg BID PO Last administered on 06/13/19at 08:25; Admin Dose 5 MG; Start 06/10/19 at 09:00 Acetaminophen/ Hydrocodone Bitart ([place] (7.5-325)) 1 tab Q6H PRN PO MODERATE PAIN LEVEL 4-6 Last administered on 06/13/19 12:36; Admin Dose 1 TAB; Start 06/10/19 at 11:30 Docusate Sodium (Colace) 250 mg DAILY PO Last administered on 06/12/19 08:32; Admin Dose 250 MG; Start 06/10/19 at 11:30 Metoclopramide HCl (Reglan) 10 mg Q6H PRN IV NAUSEA AND/OR VOMITING Last administered on 06/11/19 00:45; Admin Dose 10 MG; Start 06/11/19 at 01:00 Piperacillin Sod/ Tazobactam Sod 100 ml @ 200 mls/hr Q8 IVPB Last administered on 06/13/19 13:50; Admin Dose 200 MLS/HR; Start 06/11/19 at 10:00 Polyethylene Glycol (Miralax) 17 gm DAILY PO Last administered on 06/12/19 08:32; Admin Dose 17 GM; Start 06/11/19 at 10:30 Diltiazem HCl (Cardizem Iv) 5 mg Q1H PRN IV HR >120; Start 06/11/19 at 10:30 Metoprolol Tartrate (Lopressor) 50 mg TID PO Last administered on 06/13/19 13:50; Admin Dose 50 MG; Start 06/12/19 at 21:00 JEB ZUÑIGA MD Jun 13, 2019 16:39
[2019-06-13] MEDS: FAMOTIDINE 20 MG INJ IV SCH (17:13)
[2019-06-13] MEDS: TAMSULOSIN (SR) 0.4 MG CAP PO SCH (21:04)
--- NOTE | 2019-06-13 22:20 | PN ---
Date/Time of Note Date/Time of Note DATE: 06/13/19 TIME: 22:15 Assessment/Plan Lines/Catheters IV Catheter Type (from Nrs): Saline Lock Assessment/Plan Chief Complaint/Hosp Course 1. Abdominal pain: ddx: LLQ parastomal hernia, ? intermittent partial obstruction vs. GB (HIDA negative- low likelihood) vs. adhesions vs. other parastomal hernia manual reduction attempted yesterday able to reduce a little bit. Patient refused sbft. Having BMs. Tolerating diet per medical team. -outpt f/u with primary surgeon for parastomal hernia repair -weight loss highly encouraged 2. Acute on chronic kidney dx -per renal -judicious fluids -renally dose meds -limit nephrotoxins 3. Afib with RVR -rate control -anticoagulation -per cards 4. Leukocytosis: No infectious symptoms. Improving 5. Abnormal UA -frequent bladder emptying/cath care 6. Hypertension, dyslipidemia -Highly encouraged weight loss -Diet and medication optimization 7. Morbid obesity BMI: 48 -diet and exercise optimization -encourage weight loss Thank you Subjective 24 Hr Interval Summary Abdominal pain improved. + Bowel function per ostomy. No fevers, chills, sob, congested cough, cp, palpitations, santiago, dizziness, nausea, vomiting, diarrhea, dysuria. Exam/Review of Systems Vital Signs Vitals Vital Signs Date Temp Pulse Resp B/P (MAP) Pulse Ox O2 O2 Flow FiO2 Time Delivery Rate 06/13/19 98.7 69 20 96/63 (74) 94 20:00 06/13/19 Room Air 15:44 Intake and Output 06/12/19 06/12/19 06/13/19 1515:00 23:00 07:00 IntakeIntake Total 1040 ml 720 ml 340 ml OutputOutput Total 2000 ml 1840 ml 600 ml BalanceBalance -960 ml -1120 ml -260 ml Exam Free Text/Dictation Constitutional: alert, oriented Psych: nl mood/affect; No anxiety Head: normocephalic, atraumatic Eyes: nl conjunctiva, EOMI, nl lids, nl sclera ENMT: nl external ears & nose, nl lips & teeth, mucosa pink and moist Neck: supple, non-tender; No jvd Respiratory: normal air movement; No congested cough Cardiovascular: nl pulses; No regular rate and rhythm (Atrial fibrillation currently controlled), No edema Gastrointestinal: soft, surgical scars, tender (Parastomal), other (Large pannus), left lower quadrant ostomy: Productive Genitourinary - Male: nl penis, nl scrotum Musculoskeletal: nl gait and stance Extremities: normal pulses Neurological: nl mental status, nl speech, nl strength Skin: nl turgor; No rash or lesions Results Result Diagram: 06/13/19 0604 06/13/19 0604 JOSH YOUNG MD Jun 13, 2019 22:20
[2019-06-14] VITALS: PULSE 86
[2019-06-14 00:11] VITALS: BP 118/64; PULSE 87; RESP 19
[2019-06-14] MEDS: HYDROCODONE/APAP (7.5/325) TAB PO PRN ×2 (00:26→08:11)
[2019-06-14] MEDS: ONDANSETRON 4 MG INJ IV PRN (00:56)
[2019-06-14 04:00] VITALS: BP 119/77; PULSE 100; PULSE 89; RESP 19
[2019-06-14 07:38] VITALS: BP 112/85; PULSE 58; RESP 20
[2019-06-14] MEDS: POLYETHYLENE GLYCOL 17 GM PACKET PO SCH (08:11)
[2019-06-14] MEDS: APIXABAN 5 MG TABLET PO SCH (08:11)
[2019-06-14] MEDS: DOCUSATE SODIUM 250 MG CAP PO SCH (08:11)
[2019-06-14 08:12] VITALS: PULSE 94
[2019-06-14] MEDS: FAMOTIDINE 20 MG INJ IV SCH (08:12)
[2019-06-14] MEDS: METOPROLOL 50 MG TAB PO SCH ×2 (08:12→12:24)
--- NOTE | 2019-06-14 11:31 | PN ---
Date/Time of Note Date/Time of Note DATE: 06/14/19 TIME: 11:29 Assessment/Plan Lines/Catheters IV Catheter Type (from Nrs): Saline Lock Assessment/Plan Chief Complaint/Hosp Course 1. Abdominal pain: ddx: LLQ parastomal hernia, ? intermittent partial obstruction vs. GB (HIDA negative- low likelihood) vs. adhesions vs. other parastomal hernia manual reduction attempted yesterday able to reduce a little bit. Patient refused sbft. Having BMs. Tolerating diet per medical team. -outpt f/u with primary surgeon for parastomal hernia repair -weight loss highly encouraged 2. Acute on chronic kidney dx -per renal -judicious fluids -renally dose meds -limit nephrotoxins 3. Afib with RVR -rate control -anticoagulation -per cards 4. Leukocytosis: No infectious symptoms. Improving 5. Abnormal UA -frequent bladder emptying/cath care 6. Hypertension, dyslipidemia -Highly encouraged weight loss -Diet and medication optimization 7. Morbid obesity BMI: 48 -diet and exercise optimization -encourage weight loss Thank you Subjective 24 Hr Interval Summary Abdominal pain improved. + Bowel function per ostomy. No fevers, chills, sob, congested cough, cp, palpitations, santiago, dizziness, nausea, vomiting, diarrhea, dysuria. Exam/Review of Systems Vital Signs Vitals Vital Signs Date Temp Pulse Resp B/P (MAP) Pulse Ox O2 O2 Flow FiO2 Time Delivery Rate 06/14/19 94 08:12 06/14/19 98.2 20 112/85 96 Room Air 07:38 (94) Intake and Output 06/13/19 06/13/19 06/14/19 1515:00 23:00 07:00 IntakeIntake Total 920 ml 1420 ml 440 ml OutputOutput Total 1200 ml 2950 ml 3700 ml BalanceBalance -280 ml -1530 ml -3260 ml Exam Free Text/Dictation Constitutional: alert, oriented Psych: nl mood/affect; No anxiety Head: normocephalic, atraumatic Eyes: nl conjunctiva, EOMI, nl lids, nl sclera ENMT: nl external ears & nose, nl lips & teeth, mucosa pink and moist Neck: supple, non-tender; No jvd Respiratory: normal air movement; No congested cough Cardiovascular: nl pulses; No regular rate and rhythm (Atrial fibrillation currently controlled), No edema Gastrointestinal: soft, surgical scars, tender (Parastomal), other (Large pannus), left lower quadrant ostomy: Productive Genitourinary - Male: nl penis, nl scrotum Musculoskeletal: nl gait and stance Extremities: normal pulses Neurological: nl mental status, nl speech, nl strength Skin: nl turgor; No rash or lesions Results Result Diagram: 06/14/19 0621 06/14/19 0621 JOSH YOUNG MD Jun 14, 2019 11:31
[2019-06-14 12:03] VITALS: BP 114/69; PULSE 73; RESP 16
--- NOTE | 2019-06-14 13:46 | CONS ---
Consult Date/Type/Reason Admit Date/Time Jun 08, 2019 at 06:06 Initial Consult Date 06/08/19 Type of Consultation: cv Requesting Provider: ALFA RITCHIE Date/Time of Note DATE: 06/14/19 TIME: 13:42 Subjective Interventional cardiology follow-up progress note Subjective: Case discussed with staff telemetry was reviewed patient has remained in atrial fibrillation heart is under good control now No chest pain or pressure no palpitation. No nausea vomiting Patient is states that he has been able to walk around Objective: General: Obese the obese gentleman in no acute distress HEENT: NC/AT. pupils are equal. round. NECK: no stridor. CV: Irregularly irregular systolic murmur; no gallop or rubs. PULM: no wheezing or rhonchi. GI: SOFT, NT, ND, no rebound or guarding Extremity: trace B/L LE edema. no clubbing. neuro: awake and alert, OX3. Psych: calm t rectal: deferred EKG was personally with atrial fibrillation with slow ventricular response nonspecific T wave abnormalities Abdominal CT has shown: 1. Gallbladder mildly distended at 6 cm transverse diameter. Appearance raises possibility of cholecystitis, consider further evaluation with ultrasound or HIDA scan if clinically warranted. 2. Chronic postsurgical changes related to subtotal colectomy with left lower quadrant ostomy. The large peristomal hernia which contains a nondilated segment of the small bowel no evidence for acute obstruction. 3. Bilateral renal cortical atrophy. Punctate non-obstructing calcifications within both kidneys. 4. Small fat containing bilateral inguinal hernias. 5. Chronic compression deformity of the L1 vertebral body. Echocardiogram was personally reviewed shows: Normal left ventricular systolic function. Normal left ventricular cavity size. Left ventricular wall thickness upper limits of normal. Ejection fraction is visually estimated at 60 %. Tissue Doppler/Mitral Doppler indices are indeterminate in this study due to the presence of atrial fibrillation. There is mild enlargement of left atrium. Mitral valve is not well visualized. Mild mitral leaflet calcification. Mild mitral annular calcification. Trace mitral regurgitation. No significant aortic stenosis or insufficiency. Aortic valve not well visualized. Aortic cusps appear mildly calcified. Normal appearance of the tricuspid valve. Unable to obtain RVSP due to minimal presence of tricuspid regurgitation. Normal size and normal respiratory collapse consistent with normal right atrial pressure. Trivial pericardial effusion. Objective Vitals Vital Signs Date Temp Pulse Resp B/P (MAP) Pulse Ox O2 O2 Flow FiO2 Time Delivery Rate 06/14/19 97.6 73 16 114/69 94 Room Air 12:03 (84) Intake and Output 06/13/19 06/13/19 06/14/19 1515:00 23:00 07:00 IntakeIntake Total 920 ml 1420 ml 440 ml OutputOutput Total 1200 ml 2950 ml 3700 ml BalanceBalance -280 ml -1530 ml -3260 ml Results/Medications Result Diagram: 06/14/1921 06/14/19 0621 Results 24 hrs Laboratory Tests Test 06/14/19 06:21 White Blood Count 11.6 H Red Blood Count 3.31 L Hemoglobin 10.0 L Hematocrit 30.4 L Mean Corpuscular Volume 91.8 Mean Corpuscular Hemoglobin 30.2 Mean Corpuscular Hemoglobin Concent 32.9 Red Cell Distribution Width 13.0 Platelet Count 249 Mean Platelet Volume 11.9 H Immature Granulocytes % 0.900 H Neutrophils % 66.5 Lymphocytes % 10.9 L Monocytes % 17.4 H Eosinophils % 3.7 Basophils % 0.6 Nucleated Red Blood Cells % 0.0 Immature Granulocytes # 0.110 H Neutrophils # 7.7 H Lymphocytes # 1.3 Monocytes # 2.0 H Eosinophils # 0.4 Basophils # 0.1 Nucleated Red Blood Cells # 0.0 Sodium Level 137 Potassium Level 4.4 Chloride Level 99 Carbon Dioxide Level 30 Anion Gap 8 Blood Urea Nitrogen 42 H Creatinine 1.56 H Est Glomerular Filtrat Rate mL/min 45 L Glucose Level 127 Calcium Level 9.6 Phosphorus Level 4.2 Magnesium Level 1.8 Home Meds Active Scripts Apixaban* (Eliquis*) 5 Mg Tablet, 5 MG PO BID, #60 TAB 3 Refills Prov:ERMAALFA 06/10/19 Ondansetron Hcl* (Zofran*) 4 Mg Tablet, 4 MG PO Q8H PRN for NAUSEA AND/OR VOMITING, #30 TAB Prov:VIRGIL MAC MD 06/08/19 Naproxen* (Naprosyn*) 500 Mg Tablet, 500 MG PO BID PRN for PAIN AND/OR INFLAMMATION, #30 TAB Prov:VIRGIL MAC MD 06/08/19 Fluticasone Propionate (Flonase Allergy Relief) 9.9 Ml [place].susp, 1 SPRAY NASAL BID for 28 Days, #1 BOTTLE TO EACH NOSTRIL Prov:UMA NICOLAS PA-C 04/04/18 Tamsulosin Hcl* (Flomax*) 0.4 Mg Cap.er.24h, 0.4 MG PO QPM, #30 CAP Prov:LANEGISELESUE MONSIVAISELLAAria MorrisTony SHERMAN 07/18/17 Reported Medications Lisinopril* (Lisinopril*) 5 Mg Tablet, 1 TAB ORAL DAILY 06/08/19 Hydroxyzine Hcl* (Atarax*) 25 Mg Tab, 1 TAB ORAL TID PRN for ALLERGIC REACTION 06/08/19 Pravastatin Sodium (Pravastatin Sodium) 20 Mg Tablet, 1 TAB ORAL QHS 06/08/19 Furosemide* (Furosemide*) 20 Mg Tablet, 1 TAB ORAL DAILY 06/08/19 Tramadol HCl (Tramadol HCl) 50 Mg Tablet, 1 TAB ORAL TID PRN for PAIN LEVEL 6-10 06/08/19 Zolpidem Tartrate* (Zolpidem Tartrate*) 5 Mg Tablet, 1 TAB ORAL QHS PRN for INSOMNIA 06/08/19 Trazodone Hcl* (Trazodone Hcl*) 50 Mg Tablet, 50 MG PO QHS, #90 TAB 10/08/18 Metoprolol Tartrate* (Lopressor*) 50 Mg Tab, 50 MG PO BID, #60 TAB 10/08/18 Ibuprofen* (Ibuprofen*) 400 Mg Tablet, 400 MG PO Q6H PRN for PAIN, TAB 07/18/17 Pregabalin* (Lyrica*) 25 Mg Capsule, 25 MG PO DAILY, CAP 07/18/17 Discontinued Reported Medications Lisinopril* (Lisinopril*) 10 Mg Tablet, 10 MG PO DAILY, #30 TAB 10/08/18 Pravastatin Sodium* (Pravastatin Sodium*) 10 Mg Tablet, 10 MG PO HS, TAB 08/23/15 Medications Current Medications Ondansetron HCl (Zofran Inj) 4 mg Q6H PRN IV NAUSEA AND/OR VOMITING Last administered on 06/14/19at 00:56; Admin Dose 4 MG; Start 06/08/19 at 10:30 Tamsulosin HCl (Flomax) 0.4 mg QPM PO Last administered on 06/13/19at 21:04; Admin Dose 0.4 MG; Start 06/08/19 at 21:00 Apixaban (Eliquis) 5 mg BID PO Last administered on 06/14/19 08:11; Admin Dose 5 MG; Start 06/10/19 at 09:00 Acetaminophen/ Hydrocodone Bitart (Register (7.5-325)) 1 tab Q6H PRN PO MODERATE P AIN LEVEL 4-6 Last administered on 06/14/19 08:11; Admin Dose 1 TAB; Start 06/10/19 at 11:30 Docusate Sodium (Colace) 250 mg DAILY PO Last administered on 06/12/19 08:32; Admin Dose 250 MG; Start 06/10/19 at 11:30 Metoclopramide HCl (Reglan) 10 mg Q6H PRN IV NAUSEA AND/OR VOMITING Last administered on 06/11/19 00:45; Admin Dose 10 MG; Start 06/11/19 at 01:00 Polyethylene Glycol (Miralax) 17 gm DAILY PO Last administered on 06/12/19 08:32; Admin Dose 17 GM; Start 06/11/19 at 10:30 Diltiazem HCl (Cardizem Iv) 5 mg Q1H PRN IV HR >120; Start 06/11/19 at 10:30 Metoprolol Tartrate (Lopressor) 50 mg TID PO Last administered on 06/14/19 12:24; Admin Dose 50 MG; Start 06/12/19 at 21:00 Famotidine (Pepcid Iv) 20 mg DAILY IV Last administered on 06/14/19 08:12; Admin Dose 20 MG; Start 06/13/19 at 17:00 Assessment/Plan Hospital Course (Demo Recall) Atrial fibrillation with tachy/bradycardia Acute renal failure: Slowly improving Dehydration History of hypertension morbid obesity Status post colostomy Obstructive sleep apnea ? Cholecystitis Recommendations: We will cont beta-bernadette 3 times daily Telemetry monitoring for now GI work-up and treatment as per internal medicine IV fluid/ Management as per renal consultants. He is agreeable to taking Eliquis. cont eliquis DC planning when okay from renal standpoint Thank you for his referral. We will continue to follow along with you ADRIANNA GARCIA MD [facility] ADRIANNA GARCIA MD Jun 14, 2019 13:45
--- NOTE | 2019-06-14 14:53 | DS ---
Date/Time of Note Date/Time of Note DATE: 06/14/19 TIME: 14:49 Discharge Summary Admission/Discharge Info Admit Date/Time Jun 08, 2019 at 06:06 Discharge Date/Time Jun 14, 2019 at 14:30 Patient Condition: Fair Consults General surgery Cardiology Procedures CAT scan abdomen pelvis IMPRESSION: 1. Gallbladder mildly distended at 6 cm transverse diameter. Appearance raises possibility of cholecystitis, consider further evaluation with ultrasound or HIDA scan if clinically warranted. 2. Chronic postsurgical changes related to subtotal colectomy with left lower quadrant ostomy. The large peristomal hernia which contains a nondilated segment of the small bowel no evidence for acute obstruction. 3. Bilateral renal cortical atrophy. Punctate non-obstructing calcifications within both kidneys. 4. Small fat containing bilateral inguinal hernias. 5. Chronic compression deformity of the L1 vertebral body. Abdominal ultrasound HIDA Hx of Present Illness Admitted with abdominal pain Hospital Course Hospital course -Admitted with abdominal pain concern for obstruction. He has a history of abdominal surgery and possible inflammatory bowel disease. I dont believe this patient is visiting any physicians regularly. Possible underlying stress or behavioral disorder. Patient refused the opinion and advice of his surgeon and myself in terms of getting additional imaging to solve his medical problem. Unfortunately patient left AMA today. Over the last 2 days I went through the risk of repeat health challenges and the progression of his comorbidities including renal failure. a/p 1. Bowel obstruction vs ileus, refused sbft 2. H/o IBD? 3. Subtotal colectomy & Colostomy status- [facility] 4. A fib; stable 5. SHS; agrees to eliquis 6. J[place] 7. HTN 8. DL 9. Subclinical hypothyroidism 10. BPH 11. Trivial Pericardial Effusion; observe. rpt echo prn 12. P tobacco 13. Underlying psychosis? S: Does not state of any injury or stress. No abdominal pain. Minimal flatus. Refuses small bowel series and the options were discussed with the patient. I also discussed the likelihood of him returning in worse shape the next time this cycle happens. States he is tolerating clears. Home Meds Active Scripts Apixaban* (Eliquis*) 5 Mg Tablet, 5 MG PO BID, #60 TAB 3 Refills Prov:ALFA RITCHIETony 06/10/19 Ondansetron Hcl* (Zofran*) 4 Mg Tablet, 4 MG PO Q8H PRN for NAUSEA AND/OR VOMITING, #30 TAB Prov:VIRGIL MAC MD 06/08/19 Naproxen* (Naprosyn*) 500 Mg Tablet, 500 MG PO BID PRN for PAIN AND/OR INFLAMMATION, #30 TAB Prov:VIRGIL MAC MD 06/08/19 Fluticasone Propionate (Flonase Allergy Relief) 9.9 Ml [place].susp, 1 SPRAY NASAL BID for 28 Days, #1 BOTTLE TO EACH NOSTRIL Prov:UMA NICOLAS PA-C 04/04/18 Tamsulosin Hcl* (Flomax*) 0.4 Mg Cap.er.24h, 0.4 MG PO QPM, #30 CAP Prov:BRENDA NUNEZ DO 07/18/17 Reported Medications Lisinopril* (Lisinopril*) 5 Mg Tablet, 1 TAB ORAL DAILY 06/08/19 Hydroxyzine Hcl* (Atarax*) 25 Mg Tab, 1 TAB ORAL TID PRN for ALLERGIC REACTION 06/08/19 Pravastatin Sodium (Pravastatin Sodium) 20 Mg Tablet, 1 TAB ORAL QHS 06/08/19 Furosemide* (Furosemide*) 20 Mg Tablet, 1 TAB ORAL DAILY 06/08/19 Tramadol HCl (Tramadol HCl) 50 Mg Tablet, 1 TAB ORAL TID PRN for PAIN LEVEL 6-10 06/08/19 Zolpidem Tartrate* (Zolpidem Tartrate*) 5 Mg Tablet, 1 TAB ORAL QHS PRN for INSOMNIA 06/08/19 Trazodone Hcl* (Trazodone Hcl*) 50 Mg Tablet, 50 MG PO QHS, #90 TAB 10/08/18 Metoprolol Tartrate* (Lopressor*) 50 Mg Tab, 50 MG PO BID, #60 TAB 10/08/18 Ibuprofen* (Ibuprofen*) 400 Mg Tablet, 400 MG PO Q6H PRN for PAIN, TAB 07/18/17 Pregabalin* (Lyrica*) 25 Mg Capsule, 25 MG PO DAILY, CAP 07/18/17 Discontinued Reported Medications Lisinopril* (Lisinopril*) 10 Mg Tablet, 10 MG PO DAILY, #30 TAB 10/08/18 Pravastatin Sodium* (Pravastatin Sodium*) 10 Mg Tablet, 10 MG PO HS, TAB 08/23/15 Primary Care Provider Care Physician No Primary Time spent on discharge: < 30 minutes Pending Labs Laboratory Tests Test 06/14/19 06:21 White Blood Count 11.6 10^3/ul (4.8-10.8) Red Blood Count 3.31 10^6/ul (4.70-6.10) Hemoglobin 10.0 g/dl (14.0-18.0) Hematocrit 30.4 % (42.0-52.0) Mean Corpuscular Volume 91.8 fl (82.0-101.0) Mean Corpuscular Hemoglobin 30.2 pg (29.0-33.0) Mean Corpuscular Hemoglobin Concent 32.9 g/dl (32.0-37.0) Red Cell Distribution Width 13.0 % (11.5-14.5) Platelet Count 249 10^3/UL (140-415) Mean Platelet Volume 11.9 fl (7.4-10.4) Immature Granulocytes % 0.900 % (0.001-0.429) Neutrophils % 66.5 % (39.0-77.0) Lymphocytes % 10.9 % (15.0-51.0) Monocytes % 17.4 % (0.0-11.0) Eosinophils % 3.7 % (0.0-7.0) Basophils % 0.6 % (0.0-2.0) Nucleated Red Blood Cells % 0.0 /100WBC (0.0-0.0) Immature Granulocytes # 0.110 10^3/ul (0.0-0.031) Neutrophils # 7.7 10^3/ul (1.6-7.5) Lymphocytes # 1.3 10^3/ul (0.8-2.9) Monocytes # 2.0 10^3/ul (0.3-0.9) Eosinophils # 0.4 10^3/ul (0.0-0.5) Basophils # 0.1 10^3/ul (0.0-0.1) Nucleated Red Blood Cells # 0.0 10^3/ul (0.0-0.0) Sodium Level 137 mmol/L (135-144) Potassium Level 4.4 mmol/L (3.5-5.1) Chloride Level 99 mmol/L (97-110) Carbon Dioxide Level 30 mmol/L (21-31) Anion Gap 8 (5-13) Blood Urea Nitrogen 42 mg/dl (7-20) Creatinine 1.56 mg/dl (0.61-1.24) Est Glomerular Filtrat Rate mL/min 45 mL/min (>60) Glucose Level 127 mg/dl (70-220) Calcium Level 9.6 mg/dl (8.4-10.2) Phosphorus Level 4.2 mg/dl (2.5-4.9) Magnesium Level 1.8 mg/dl (1.7-2.5) JEB ZUÑIGA MD Jun 14, 2019 14:53
--- NOTE | 2019-06-15 09:16 | RADRPT ---
Vent Rate: 103 bpm RR Interval: 583 msec [place] Interval: [id number] msec QRS Duration: 97 msec QT Interval: 362 msec QTC Interval: 474 msec P-R-T [place]: [id number] - -17 - 34 degrees Atrial fibrillation...V-rate 80-124, irreg A-activity Low voltage, precordial leads...precordial leads <1.0mV Electronically Signed By: Merlin Juarez
--- NOTE | 2019-06-15 09:16 | RADRPT ---
Vent Rate: 155 bpm RR Interval: 387 msec [place] Interval: 153 msec QRS Duration: 95 msec QT Interval: 265 msec QTC Interval: 426 msec P-R-T [place]: 83 - -59 - -90 degrees Sinus tachycardia...rate> 99 Ventricular tachycardia, unsustained...sequence of 3 or more V complexes Left axis deviation...QRS axis (-30,-90) Low voltage, precordial leads...precordial leads <1.0mV Repolarization abnormality, prob rate related...ST dep, T neg, tachycardia Electronically Signed By: Merlin Juarez
--- NOTE | 2019-06-15 09:25 | RADRPT ---
Vent Rate: 55 bpm RR Interval: 1098 msec [place] Interval: [id number] msec QRS Duration: 104 msec QT Interval: 448 msec QTC Interval: 428 msec P-R-T [place]: [id number] - 25 - 51 degrees Atrial fibrillation...V-rate 65- 65, irreg A-activity Low voltage, precordial leads...precordial leads <1.0mV Electronically Signed By: Merlin Juarez
== END 2019-06-14 14:30 | disposition left against medical advice (07) | DRG 388 ==
LOC: E/R 03:21 → TEL 06:06
PROVIDERS: ADMIT Internal Medicine; ATTEND Family Medicine
DX: K56.609 Unspecified intestinal obstruction, unspecified as to partial versus complete obstruction (principal); N17.0 Acute kidney failure with tubular necrosis; E87.2 Acidosis; N25.81 Secondary hyperparathyroidism of renal origin; Z68.42 Body mass index [BMI] 45.0-49.9, adult; K56.7 Ileus, unspecified; E87.5 Hyperkalemia; E83.39 Other disorders of phosphorus metabolism; E83.42 Hypomagnesemia; E66.01 Morbid (severe) obesity due to excess calories; E86.0 Dehydration; E78.5 Hyperlipidemia, unspecified; E02 Subclinical iodine-deficiency hypothyroidism; F41.9 Anxiety disorder, unspecified; F32.9 Major depressive disorder, single episode, unspecified; F29 Unspecified psychosis not due to a substance or known physiological condition; G47.33 Obstructive sleep apnea (adult) (pediatric); I12.9 Hypertensive chronic kidney disease with stage 1 through stage 4 chronic kidney disease, or unspecified chronic kidney disease; I48.2 Chronic atrial fibrillation; K43.5 Parastomal hernia without obstruction or gangrene; N18.9 Chronic kidney disease, unspecified; N20.0 Calculus of kidney; N40.0 Benign prostatic hyperplasia without lower urinary tract symptoms; Z53.20 Procedure and treatment not carried out because of patient's decision for unspecified reasons; Z71.3 Dietary counseling and surveillance; Z93.3 Colostomy status; Z90.49 Acquired absence of other specified parts of digestive tract; Z87.891 Personal history of nicotine dependence
CPT/HCPCS: 36415; 36600; 71045; 74176; 76705; 78226; 80048; 80053; 80076; 80162; 81001; 82550; 82553; 82803; 82962; 83690; 83735; 84100; 84300; 84439; 84443; 84484; 85025; 85610; 85730; 93005; 93306; 96374; 96375; 97161; A9537; J0153; J0744; J1885; J2270; J2405; J2543; J2765; J3475; J7030; J7050